=== PATIENT | female | born 1975 | race Two or more races ===

== ENCOUNTER 2020-07-26 15:52 | Outpatient (REF) | payer OTHER, SELFPAY | END 2020-07-26 15:53 | disposition home or self-care (01) | LOC: HO.LAB 15:52 | PROVIDERS: PCP Internal Medicine; Visit Provider Internal Medicine | DX: Z20.828 Contact with and (suspected) exposure to other viral communicable diseases (principal) | CPT/HCPCS: 87635 ==

== ENCOUNTER 2021-01-31 12:26 | Outpatient (REF) | payer OTHER, SELFPAY | END 2021-01-31 12:27 | disposition home or self-care (01) | LOC: HO.LAB 12:26 | PROVIDERS: Visit Provider Internal Medicine | DX: Z20.822 Contact with and (suspected) exposure to COVID-19 (principal) | CPT/HCPCS: C9803; U0003; U0005 ==

== ENCOUNTER 2021-06-05 16:06 | Outpatient (REF) | payer OTHER, SELFPAY ==
[2021-06-05 17:11] LABS: MANUAL DIFF FLAG NO
[2021-06-05 17:18] LABS: Appearance Urine CLEAR; Color Urine YELLOW; Glucose Urine UA NEG (NEG); Leukocyte Esterase Urine NEG (NEG); Nitrite Urine NEG (NEG); Urine Blood NEG (NEG); Urine Ketones NEG (NEG); Urine Protein NEG (NEG-TRACE)
[2021-06-05 17:20] LABS: Basophils Percent Auto 0.3 % (0-2); Eosinophils Absolute Auto 0.1 X10*3/uL (0.0-0.4); Eosinophils Percent Auto 2.2 % (0-4); Hematocrit 37.6 % (37-47); Hemoglobin 11.9 g/dl (12.0-16.0); Imm Gran Abs Auto 0.03 X10*3/uL (0.00-0.03); Imm Gran Pct Auto 0.5 % (0.0-0.4); Lymphocytes Absolute Auto 2.3 X10*3/uL (1.2-4.9); Lymphocytes Percent Auto 38.1 % (20-40); Mean Corpuscular HGB Conc 31.6 g/dl (31.0-35.0); Mean Corpuscular Hemoglobin 26.7 pg (27.0-33.0); Mean Corpuscular Volume 84.5 fL (80-98); Mean Platelet Volume 9.4 fL (9.4-12.3); Monocytes Absolute Auto 0.5 X10*3/uL (0.1-1.2); Monocytes Percent Auto 7.8 % (2-11); Neutrophils Absolute Auto 3.1 X10*3/uL (2.0-8.3); Neutrophils Percent Auto 51.1 % (45-73); Platelet Count 313 X10*3/uL (160-400); Red Blood Count 4.45 X10*6/uL (4.20-5.50); Red Cell Distribution Width 14.3 % (11.0-16.0)
[2021-06-05 17:48] LABS: Alanine Aminotransferase 19 U/L (0-31); Albumin Level 4.2 g/dL (3.5-5.0); Alkaline Phosphatase 36 U/L (39-117); Anion Gap 9 (12-20); Aspartate Amino Transferase 18 U/L (5-31); Bilirubin Total 0.4 mg/dL (0.0-1.0); Blood Urea Nitrogen 10 mg/dL (9-16); Calcium 9.4 mg/dL (8.4-10.2); Carbon Dioxide 29 mmol/L (22-29); Chloride 106 mmol/L (96-108); Cholesterol 197 mg/dL; Estimated Glomerular Filt Rate > 60; Glucose Fasting 83 mg/dL (60-99); HDL Cholesterol 55 mg/dL; LDL Cholesterol Calculated 120 mg/dl; Sodium 139 mmol/L (135-145); Total Protein 6.8 g/dL (6.5-8.0); Triglycerides 110 mg/dL
[2021-06-05 18:06] LABS: TSH reflex Free T4 0.66 uIU/mL (0.32-4.0)
== END 2021-06-05 16:07 | disposition home or self-care (01) ==
LOC: HO.LAB 16:06
PROVIDERS: PCP Internal Medicine; Visit Provider Internal Medicine
DX: I10 Essential (primary) hypertension (principal); E78.00 Pure hypercholesterolemia, unspecified; E55.9 Vitamin D deficiency, unspecified
CPT/HCPCS: 36415; 80053; 80061; 81003; 82306; 84443; 85025

== ENCOUNTER 2021-12-30 11:58 | Inpatient (IN) | payer OTHER, SELFPAY ==
[2021-12-30] VITALS (17 sets, daily range): BP systolic 114–204; BP diastolic 71–118; PULSE 58–106; RESP 16–42; TEMP 36.4–37.1; O2SAT 95–100; BMI 30.2
--- NOTE | ~2021-12-30 | XR_ITS ---
EXAMINATION: XR CHEST CLINICAL INFORMATION: Chest pain with chest tube COMPARISON: 12/30/2021 TECHNIQUE: Frontal view of the chest was obtained. FINDINGS: Redemonstrated chest tube catheter overlying the mid right hemithorax. Lung volumes are symmetric. Streaky bibasilar opacities favor atelectasis. Mid to upper lungs are well-aerated. No appreciable pneumothorax or significant pleural effusion. The cardiomediastinal silhouette is stable. No acute osseous findings are seen. XR/XR chest 1V IMPRESSION: No appreciable residual pneumothorax. Mild bibasilar atelectasis.
--- NOTE | ~2021-12-30 | XR_ITS ---
EXAMINATION: XR CHEST CLINICAL INFORMATION: Right pneumothorax with pigtail catheter. COMPARISON: Portable chest radiographs dated 12/31/2021. TECHNIQUE: Frontal view of the chest was obtained. FINDINGS: Support devices: Right-sided pigtail chest tube in place without interval change. The lungs are clear. The heart and mediastinal structures are unremarkable. XR/XR chest 1V IMPRESSION: No residual/recurrent pneumothorax with right chest tube in place.
--- NOTE | ~2021-12-30 | XR_ITS ---
EXAMINATION: XR CHEST CLINICAL INFORMATION: Chest tube placement COMPARISON: Radiograph from earlier today. TECHNIQUE: Frontal view of the chest was obtained. FINDINGS: Right-sided chest tube now in place overlies the base. There is a small residual pneumothorax, decreased in prominence from prior. The left lung is expanded and clear. The cardiomediastinal silhouette is within normal limits. XR/XR chest 1V IMPRESSION: Right-sided chest tube now in place with decreasing size of a now small right-sided pneumothorax.
--- NOTE | ~2021-12-30 | XR_ITS ---
EXAMINATION: XR CHEST CLINICAL INFORMATION: Follow-up pneumothorax COMPARISON: Previous chest x-ray from yesterday TECHNIQUE: Frontal view of the chest was obtained. FINDINGS: The cardiac and mediastinal contours are stable. There is a right chest tube that appears unchanged in position. There is a tiny right apical pneumothorax that measures 5 mm. There is subsegmental atelectasis at the left lung base. The lungs are otherwise clear.. There is no pleural effusion. There is a small amount of air in the right lateral chest. Bony structures are unremarkable. XR/XR chest 1V IMPRESSION: Stable position of right chest tube. Tiny right apical pneumothorax.
--- NOTE | ~2021-12-30 | XR_ITS ---
EXAMINATION: XR CHEST CLINICAL INFORMATION: Chest pain. Cough. COMPARISON: None TECHNIQUE: Frontal view of the chest was obtained. FINDINGS: There is a large right-sided pneumothorax. The left lung is well-expanded. No mediastinal shift seen. No pleural effusion. No consolidation. Normal size of the cardiomediastinal silhouette. No acute osseous abnormality. XR/XR chest 1V IMPRESSION: Large right-sided pneumothorax. This critical result was discussed with Linda Ba MD by telephone at 12/30/2021 2:15 PM and it was ascertained that the content and urgency of the report was understood at the time of direct communication.
--- NOTE | ~2021-12-30 | XR_ITS ---
EXAMINATION: XR CHEST CLINICAL INFORMATION: Right-sided pneumothorax treated with chest tube. COMPARISON: Chest x-ray 12/31/2021, 8:34 AM TECHNIQUE: Frontal portable view of the chest was obtained. 5:05 PM FINDINGS: Right-sided chest tube remains in place. Right lung is reexpanded. There is no residual pneumothorax. Decreasing volume of subcutaneous emphysema in the right axilla. No acute airspace disease. No pleural effusion. Heart size normal. Cardiac mediastinal contours are normal. XR/XR chest 1V IMPRESSION: Right-sided chest remains in place. No residual pneumothorax.
--- NOTE | 2021-12-30 12:03 | ECG_ITS ---
Test Reason : cp Blood Pressure : / mmHG Vent. Rate : 084 BPM Atrial Rate : 084 BPM P-R Int : 126 ms QRS Dur : 078 ms QT Int : 378 ms P-R-T Axes : 073 041 008 degrees QTc Int : 446 ms Normal sinus rhythm Normal ECG No previous ECGs available Referred By: Generic ED Physician Electronically Signed By:YURI AYALA MD
[2021-12-30 13:19] LABS: MANUAL DIFF FLAG NO
[2021-12-30 13:29] LABS: Basophils Percent Auto 0.5 % (0-2); Eosinophils Absolute Auto 0.1 X10*3/uL (0.0-0.4); Eosinophils Percent Auto 2.2 % (0-4); Hematocrit 42.1 % (37.0-47.0); Hemoglobin 13.7 g/dl (12.0-16.0); Imm Gran Abs Auto 0.01 X10*3/uL (0.00-0.03); Imm Gran Pct Auto 0.2 % (0.0-0.4); Lymphocytes Absolute Auto 1.8 X10*3/uL (1.2-4.9); Lymphocytes Percent Auto 31.2 % (20-40); Mean Corpuscular HGB Conc 32.5 g/dl (31.0-35.0); Mean Corpuscular Hemoglobin 27.6 pg (27.0-33.0); Mean Corpuscular Volume 84.9 fL (80.0-98.0); Mean Platelet Volume 9.4 fL (9.4-12.3); Monocytes Absolute Auto 0.6 X10*3/uL (0.1-1.2); Monocytes Percent Auto 9.9 % (2-11); Neutrophils Absolute Auto 3.3 x10*3/uL (2.0-8.3); Platelet Count 297 X10*3/uL (160-400); Red Blood Count 4.96 X10*6/uL (4.20-5.50); Red Cell Distribution Width 14.6 % (11.0-16.0); White Blood Count 5.9 X10*3/uL (4.8-10.8)
--- NOTE | 2021-12-30 13:42 | ED_ITS ---
HPI - Chest Pain General Chief Complaint: Chest Pain Stated Complaint: SOB/Chest pain Time Seen by Provider: 12/30/21 13:36 Source: patient Mode of arrival: ambulatory Limitations: no limitations History of Present Illness HPI narrative: Patient comes to the emergency room complaining of right-sided chest pain, aye rtness of breath, coughing. Patient denies fever chills. Patient states she has history of asthma but has not used her inhaler for 2 months. Patient denies abdominal pain, no other symptoms. Patient admits that she has been using cocaine lately. Around this time of year, it is the 3rd year anniversary of her son's . Related Data Home Medications Medication Instructions Recorded Confirmed clonazepam 1 mg tablet 1 mg PO BID PRN 07/23/20 12/30/21 quetiapine 50 mg tablet 50 mg PO BEDTIME 07/23/20 12/30/21 sertraline 50 mg tablet 50 mg PO BEDTIME 09/04/21 12/30/21 Previous Rx's Medication Instructions Recorded albuterol sulfate 90 mcg/actuation 2 puff INHALATION Q6H PRN 30 Days 09/04/21 aerosol inhaler #8.5 g cholecalciferol (vitamin D3) 50 50 mcg PO DAILY 90 Days #90 cap 09/04/21 mcg (2,000 unit) capsule propranolol 160 mg capsule,24 160 mg PO DAILY 90 Days #90 cap 09/04/21 hr,extended release Allergies Allergy/AdvReac Type Severity Reaction Status Date / Time No Known Allergies Allergy Verified 12/30/21 13:07 Review of Systems Review of Systems: Constitutional : No Weight loss, No Fever, No Chills, No Night Sweats, No Fatigue, No Malaise ENT/Mouth : No Hearing loss, No Ear Pain, No Nasal Congestion, No Sinus Pain, No Hoarseness, No sore throat, No Rhinorrhea, No Swallowing Difficulty Eyes: No Eye Pain, No Swelling, No Redness, No Foreign Body, No Discharge, No Vision Changes Cardiovascular : Complaining of right-sided Chest Pain with deep inspiration, intermittent SOB, No Dyspnea on Exertion, No Orthopnea, No Edema, No Palpitations Respiratory : Mild dry Cough, No Sputum, No Wheezing, No Smoke Exposure, intermittent Dyspnea Gastrointestinal : No Nausea, No Vomiting, No Diarrhea, No Constipation, No abdominal Pain, No Hematochezia, No Melena Genitourinary : no irregular bleeding, No Dysuria, No Urinary Frequency, No H ematuria, No Urinary Incontinence, No Urgency, No Flank Pain, No Urinary Flow Changes, No Hesitancy Musculoskeletal : No joint pain, No Myalgias, No Joint Swelling Skin : No Skin Lesions, No rash Neuro : No Weakness, No Numbness, No Paresthesias, No Loss of Consciousness, No Dizziness, No Headache Psych : No Anxiety/Panic, No Depression, No SI/HI/AH/VH, No Social Issues, Heme/Lymph: No Bruising, No Bleeding,No Lymphadenopathy Endocrine : No Polyuria, No Polydipsia, No Temperature Intolerance FOR[facility]LY [facility] Past Medical History Medical History Anxiety Asthma Bipolar depression Obesity (BMI 30-39.9) Persistent headaches Primary insomnia Vitamin D deficiency Surgical History History of tubal ligation Family History Family History Father No problems noted. Mother No problems noted. Maternal Grandmother Breast cancer Paternal Aunt Breast cancer Family/Other FH: mental illness Other Mental health problem Social History Social History Housing: Apartment Alcohol intake: never Patient Tobacco Use Status: Current everyday Tobacco user Cigarette Packs Per Day: 2 Second Hand Smoke Exposure: Yes Use of substances other than those prescribed or required for medical reasons: Yes Substance Use Type: Marijuana Substance Use Frequency: Occasionally Advance Directives: No Advance Directives Information Provided: No service: No Current occupational status: disabled Physical Exam Vital Signs: Vital Signs: Last Vital Signs Temp 97.5 F 12/30/21 13:05 Pulse 81 12/30/21 17:12 Resp 18 12/30/21 17:12 BP 124/71 12/30/21 17:12 Pulse Ox 98 12/30/21 17:12 Oxygen Flow Rate 2 12/30/21 16:27 BMI result Body Mass Index 30.2 Const: Other: Appearance: Alert. Oriented X3. No acute distress. Well-appearing Eyes: Pupils equal, round and reactive to light. ENT: Pharynx normal. Neck: Normal inspection. Neck supple. No lymph nodes noted. No crepitus CVS: Normal heart rate and rhythm. Pulses normal. Normal S1 and S2 Respiratory: No respiratory distress. Decreased breath sounds right lung, Wheezing. No rales Abdomen: Soft and nontender. No rigidity. No distention. Skin: Skin warm and dry. Normal skin color. Normal skin turgor. Extremities: No lower extremity edema. No Lacerations. No Rash Neuro: Oriented X 3. No motor deficit. No sensory deficit. Moving all extremities. No slurred speech. CN 2 through 12 grossly intact Psych: calm, cooperative, normal affect Course Course Course Narrative: Left spending and imaging. X-ray shows a large right-sided pneumothorax. I discussed with the patient that she will need a chest tube. I discussed with the patient the option of being awake versus conscious sedation. Patient opted for conscious sedation. Patient signed the consent, now in patient's chart. Patient admits to use cocaine, which may have contributed to the pneumothorax Patient needed 2 milligrams/kilogram of ketamine, 2 mg of Ativan, and 2 mg of Dilaudid. Patient tolerated well the procedure I discussed the patient with Dr. Gonzalez, thoracic will help manage the chest tube I discussed the patient with Dr. Daily, pt being admitted Procedures Chest Tube Chest Tube 1: Chest Tube Location: right and anterior axillary line Size of Tube (cm): 14 Chest Tube Prep: Yes betadine prep and sterile drapes applied Local Anesthetic: lidocaine 1% Amount of anesthesia used (mL): 10 Incision Made With: other Post Procedure: sutured to skin and sterile dressing applied Tube Drainage: blood Amount of initial drainage (mL): 0 Post Procedure CXR?: Yes Patient Tolerated Procedure: Yes MDM - Chest Pain Lab Data Result diagrams: 12/30/21 14:57 12/30/21 14:57 Labs: Lab Results 12/30/21 12/30/21 12/30/21 Range/Units 13:15 13:15 13:15 WBC 5.9 (4.8-10.8) X10*3/uL RBC 4.96 (4.20-5.50) X10*6/uL Hgb 13.7 (12.0-16.0) g/dl Hct 42.1 (37.0-47.0) % MCV 84.9 (80.0-98.0) fL MCH 27.6 (27.0-33.0) pg MCHC 32.5 (31.0-35.0) g/dl RDW 14.6 (11.0-16.0) % Plt Count 297 (160-400) X10*3/uL MPV 9.4 (9.4-12.3) fL Immature Gran % (Auto) 0.2 (0.0-0.4) % Neut % (Auto) 56.0 (45-73) % Lymph % (Auto) 31.2 (20-40) % [place] % (Auto) 9.9 (2-11) % Eos % (Auto) 2.2 (0-4) % Baso % (Auto) 0.5 (0-2) % Lymph # (Auto) 1.8 (1.2-4.9) X10*3/uL [place] # (Auto) 0.6 (0.1-1.2) X10*3/uL Eos # (Auto) 0.1 (0.0-0.4) X10*3/uL Baso # (Auto) 0.0 (0.0-0.2) X10*3/uL Abs Immat Gran (auto) 0.01 (0.00-0.03) X10*3/uL Absolute Neuts (auto) 3.3 (2.0-8.3) x10*3/uL Absolute Nucleated RBC 0.000 (0.0-0.012) X10*3/uL Nucleated RBC % (auto) 0.0 (0.0-0.2) /100WBC PT (9.9-13.0) SEC INR (0.9-1.1) D-Dimer High Sensitivty NG/ML Sodium 139 (135-145) mmol/L Potassium 4.8 (3.3-5.1) mmol/L Chloride 106 (96-108) mmol/L Carbon Dioxide 27 (22-29) mmol/L Anion Gap 11 L (12-20) BUN 9 (9-16) mg/dL Creatinine 0.81 (0.5-1.4) mg/dL Estim Creat Clear Calc 79.9 Estimated GFR > 60 Random Glucose 77 (60-115) mg/dL Calcium 9.9 (8.4-10.2) mg/dL Troponin I High Sens < 3.5 (<3.5-17.0) ng/L 12/30/21 12/30/21 12/30/21 Range/Units 14:11 14:57 14:57 WBC 6.0 (4.8-10.8) X10*3/uL RBC 4.94 (4.20-5.50) X10*6/uL Hgb 13.5 (12.0-16.0) g/dl Hct 41.6 (37.0-47.0) % MCV 84.2 (80.0-98.0) fL MCH 27.3 (27.0-33.0) pg MCHC 32.5 (31.0-35.0) g/dl RDW 14.6 (11.0-16.0) % Plt Count 285 (160-400) X10*3/uL MPV 9.6 (9.4-12.3) fL Immature Gran % (Auto) 0.2 (0.0-0.4) % Neut % (Auto) 55.3 (45-73) % Lymph % (Auto) 32.9 (20-40) % [place] % (Auto) 9.0 (2-11) % Eos % (Auto) 2.3 (0-4) % Baso % (Auto) 0.3 (0-2) % Lymph # (Auto) 2.0 (1.2-4.9) X10*3/uL [place] # (Auto) 0.5 (0.1-1.2) X10*3/uL Eos # (Auto) 0.1 (0.0-0.4) X10*3/uL Baso # (Auto) 0.0 (0.0-0.2) X10*3/uL Abs Immat Gran (auto) 0.01 (0.00-0.03) X10*3/uL Absolute Neuts (auto) 3.3 (2.0-8.3) x10*3/uL Absolute Nucleated RBC 0.000 (0.0-0.012) X10*3/uL Nucleated RBC % (auto) 0.0 (0.0-0.2) /100WBC PT 12.0 (9.9-13.0) SEC INR 1.1 (0.9-1.1) D-Dimer High Sensitivty < 150 NG/ML Sodium 137 (135-145) mmol/L Potassium 5.0 (3.3-5.1) mmol/L Chloride 106 (96-108) mmol/L Carbon Dioxide 23 (22-29) mmol/L Anion Gap 13 (12-20) BUN 8 L (9-16) mg/dL Creatinine 0.76 (0.5-1.4) mg/dL Estim Creat Clear Calc 85.1 Estimated GFR > 60 Random Glucose 83 (60-115) mg/dL Calcium 9.7 (8.4-10.2) mg/dL Troponin I High Sens (<3.5-17.0) ng/L Imaging Data Chest x-ray: Radiologist's impression: FINDINGS: There is a large right-sided pneumothorax. The left lung is well-expanded. No mediastinal shift seen. No pleural effusion. No consolidation. Normal size of the cardiomediastinal silhouette. No acute osseous abnormality. XR/XR chest 1V IMPRESSION: Large right-sided pneumothorax. Chest ray after chest tube: Radiologist's impression: FINDINGS: Right-sided chest tube now in place overlies the base. There is a small residual pneumothorax, decreased in prominence from prior. The left lung is expanded and clear. The cardiomediastinal silhouette is within normal limits. XR/XR chest 1V IMPRESSION: Right-sided chest tube now in place with decreasing size of a now small right-sided pneumothorax. Critical Care Time Critical Care Time Critical Care Time: Yes Total Critical Care Time: 60 Attestation: I have personally provided critical care time. Time includes review of lab data, radiology results, discussion with consultants, and monitoring for potential decompensation. Intervention performed as documented. Discharge Plan Discharge Clinical Impression: Spontaneous pneumothorax Patient Disposition: Admitted As Inpatient
[2021-12-30 13:44] LABS: Anion Gap 11 (12-20); Blood Urea Nitrogen 9 mg/dL (9-16); Calcium 9.9 mg/dL (8.4-10.2); Carbon Dioxide 27 mmol/L (22-29); Chloride 106 mmol/L (96-108); Creatinine Clr Calc Pharmacy 79.9; Estimated Glomerular Filt Rate > 60; Glucose Random 77 mg/dL (60-115); Potassium 4.8 mmol/L (3.3-5.1); Sodium 139 mmol/L (135-145)
[2021-12-30 13:48] LABS: Troponin-I High Sensitivity < 3.5 ng/L (<3.5-17.0)
[2021-12-30 14:23] LABS: D Dimer High Sensitivity < 150 NG/ML
--- NOTE | 2021-12-30 14:42 | PC.NURSE ---
pt alert and oriented, skin appropriate for ethnicity, respirations even and unlabored, pt reports right chest/shoulder/upper/mid back pain, reports feeling slightly sob as well, ls on the left no ls on the entire right side, sating well 96% on room air speaking in full sentences and intermittent dry cough noticed
[2021-12-30 15:02] LABS: MANUAL DIFF FLAG NO
[2021-12-30 15:04] LABS: INTERNATIONAL NORM RATIO 1.1 (0.9-1.1)
[2021-12-30 15:05] LABS: Basophils Percent Auto 0.3 % (0-2); Eosinophils Absolute Auto 0.1 X10*3/uL (0.0-0.4); Eosinophils Percent Auto 2.3 % (0-4); Hematocrit 41.6 % (37.0-47.0); Hemoglobin 13.5 g/dl (12.0-16.0); Imm Gran Abs Auto 0.01 X10*3/uL (0.00-0.03); Imm Gran Pct Auto 0.2 % (0.0-0.4); Lymphocytes Percent Auto 32.9 % (20-40); Mean Corpuscular HGB Conc 32.5 g/dl (31.0-35.0); Mean Corpuscular Hemoglobin 27.3 pg (27.0-33.0); Mean Corpuscular Volume 84.2 fL (80.0-98.0); Mean Platelet Volume 9.6 fL (9.4-12.3); Monocytes Absolute Auto 0.5 X10*3/uL (0.1-1.2); Neutrophils Absolute Auto 3.3 x10*3/uL (2.0-8.3); Neutrophils Percent Auto 55.3 % (45-73); Platelet Count 285 X10*3/uL (160-400); Red Blood Count 4.94 X10*6/uL (4.20-5.50); Red Cell Distribution Width 14.6 % (11.0-16.0)
[2021-12-30 15:20] LABS: Anion Gap 13 (12-20); Blood Urea Nitrogen 8 mg/dL (9-16); Calcium 9.7 mg/dL (8.4-10.2); Carbon Dioxide 23 mmol/L (22-29); Chloride 106 mmol/L (96-108); Creatinine Clr Calc Pharmacy 85.1; Estimated Glomerular Filt Rate > 60; Glucose Random 83 mg/dL (60-115); Sodium 137 mmol/L (135-145)
[2021-12-30] MEDS: ondansetron HCL 4 MG/2 ML VIAL IVPUSH (15:24)
[2021-12-30] MEDS: Ketamine HCl/NS 50 MG/5 ML SYRINGE 72.575 MG IVPUSH ×2 (15:28→15:38)
[2021-12-30] MEDS: LORazepam 2 MG/ML VIAL IVPUSH (15:40)
[2021-12-30] MEDS: HYDROmorphone HCl 1 MG/ML SYRINGE IVPUSH ×2 (15:49→15:57)
[2021-12-30] MEDS: Lidocaine HCl 1 % 20 ML VIAL 10 ML INFILTRATI (16:00)
--- NOTE | 2021-12-30 16:10 | PC.NURSE ---
pt got a pig tail inserted in her right chest, pt tolerated the procedure well, vs stable, pt is currently very sleepy do to all the medications, ns on the monitor
--- NOTE | 2021-12-30 17:13 | PC.NURSE ---
pt sleepy/diaphoretic reports feeling hot, and dizzy dr pino at bedside, vs stable, ns on the monitor
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
--- NOTE | 2021-12-30 18:15 | PHA.MEDREC ---
Pharmacy Consult ? Medication Reconciliation Pharmacy has completed the medication reconciliation. Patient has not taken meds for roughly 30 days, and states when she did take them..she took them all as needed. Frantz Salamanca
[2021-12-31] MEDS: clonazePAM 1 MG TABLET PO (00:01)
[2021-12-31] MEDS: Melatonin 3 MG TABLET 6 MG PO (00:01)
[2021-12-31] MEDS: Morphine Sulfate 4 MG/ML CARTRIDGE IVPUSH ×4 (00:02→15:43)
[2021-12-31] MEDS: 0.9 % Sodium Chloride Flush 3 ML SYRINGE IVFLUSH ×3 (00:06→11:32)
[2021-12-31 02:20] LABS: COVID-19 Test Negative (Negative)
--- NOTE | 2021-12-31 05:19 | PC.NURSE ---
Patient had a chest tube attached to [address] way valve air flow. Md was asked about an immediate care orders. MD stated pt was stable for the night and thoracic will evaluate her in the am. Dressing site is CDI No kink or blockage observe in valve.
[2021-12-31 06:00] VITALS: BP 140/89; PULSE 57; RESP 18; TEMP 37.1; O2SAT 99
--- NOTE | 2021-12-31 06:34 | PC.NURSE ---
Patient was complaining of pain after being medicated 1 hr ago with pain medication. Patient stated the patient is more severe than usual. Md was notified. STAT Xray was ordered and Dilaudid as well.
[2021-12-31] MEDS: HYDROmorphone HCl 1 MG/ML SYRINGE IVPUSH (06:42)
[2021-12-31 07:09] VITALS: BP 106/62; PULSE 62; RESP 14; TEMP 36.6; O2SAT 100
[2021-12-31] MEDS: Benzonatate 100 MG CAPSULE PO (07:21)
[2021-12-31] MEDS: Cholecalciferol (Vitamin D3) 25 MCG TABLET 50 MCG PO (08:27)
[2021-12-31] MEDS: Nicotine 21 MG PATCH.TD24 TRANSDERMA (08:27)
[2021-12-31 11:30] VITALS: RESP 20
--- NOTE | 2021-12-31 11:40 | PC.NURSE ---
ARRIVED IN ED OVERFLOW C/O 07/07. MEDICATED DIRECTED BY EMR. VOIDED AND SAMPLE COLLECTED AND SENT TO LAB. REPORT TO IMC GIVEN. AWAITING TRANSFER TO FLOOR.
[2021-12-31 12:00] VITALS: BP 116/77; PULSE 75; RESP 20; TEMP 36.9; O2SAT 98
[2021-12-31 12:07] LABS: Amphetamine Screen Urine Not Detected (Not Detect); Barbiturates, Urine Not Detected (Not Detect); Benzodiazepines Screen Urine Not Detected (Not Detect); Cannabinoid Screen Urine POSITIVE (Not Detect); Cocaine Screen Urine POSITIVE (Not Detect); Fentanyl, urine Not Detected (Not Detect); Opiate Screen Urine POSITIVE (Not Detect); Phencyclidine Screen Urine Not Detected (Not Detect)
--- NOTE | 2021-12-31 14:27 | HO.PM.IMPN ---
Subjective Subjective Date of Service: 01/01/22 Interval History: complaining of right-sided back pain, also complaining of chest pain with deep breathing localize at site of chest tube, complaining of headache denies fever chills no other acute issues overnight, admits of smoking marijuana few times a day to help with sleep and appetite, smokes 1 pack per day. Review of Systems Review of Systems: Yes all other systems are reviewed and are negative Physical Exam Vital Signs: Vital Signs: Last Vital Signs Temp 98.4 F 12/31/21 12:00 Pulse 75 12/31/21 12:00 Resp 20 12/31/21 12:00 BP 116/77 12/31/21 12:00 Pulse Ox 98 12/31/21 12:00 Oxygen Flow Rate 2 12/30/21 16:27 BMI result Body Mass Index 30.2 Const: Other: General? Awake alert x3 no acute distress.? HEENT PERRLA, anicteric sclera Neck no JVD. CVS? regular rate rhythm, Respiratory lungs clear to auscultation, no respiratory distress, no wheeze, no rhonchi, diminished at bases/ chest tube to right chest . Gastrointestinal abdomen soft, nontender, bowel sounds audible, no guarding , no rigidity. Extremities no edema. Neuro nonfocal Skin no rash ? Objective Data Active Medications Acetaminophen (Acetaminophen 325 Mg Tablet) 650 mg PO Q6H PRN PRN Reason: Pain, Mild (Pain Scale 1-3) Acetaminophen/Butalbital/Caffeine (Butalb/Acetamin/Caff 50/325/40 Tablet) 1 tab PO Q4H PRN PRN Reason: Headache Albuterol Sulfate (Albuterol Sulfate 90 Mcg 8 Gm Inhaler) 2 puff INHALE Q6H PRN PRN Reason: shortness of breath or wheezing Benzonatate (Benzonatate 100 Mg Capsule) 100 mg PO TID PRN PRN Reason: Cough Last Admin: 12/31/21 07:21 Dose: 100 mg Documented by: GONZÁLEZ Clonazepam (Clonazepam 1 Mg Tablet) 1 mg PO BID PRN PRN Reason: Anxiety Last Admin: 12/31/21 00:01 Dose: 1 mg Documented by: ALBA Melatonin (Melatonin 3 Mg Tablet) 6 mg PO BEDTIME PRN PRN Reason: Insomnia Last Admin: 12/31/21 00:01 Dose: 6 mg Documented by: ALBA Morphine Sulfate (Morphine Sulfate 4 Mg/Ml Cartridge) 4 mg IVPUSH Q4H PRN; Protocol PRN Reason: Pain, Severe (Pain Scale 7-10) Last Admin: 12/31/21 11:30 Dose: 4 mg Documented by: BYRON Nicotine (Nicotine 21 Mg Patch.Td24) 21 mg TRANSDERMA DAILY [facility] Last Admin: 12/31/21 08:27 Dose: 21 mg Documented by: GONZÁLEZ Ondansetron HCl (Ondansetron Hcl 4 Mg/2 Ml Vial) 4 mg IVPUSH Q8H PRN PRN Reason: Nausea and Vomiting Sodium Chloride (0.9 % Sodium Chloride Flush 3 Ml Syringe) 3 ml IVFLUSH QSHIFT [facility] Last Admin: 12/31/21 11:32 Dose: 3 ml Documented by: BYRON Vitamin D (Cholecalciferol (Vitamin D3) 25 Mcg Tablet) 50 mcg PO DAILY [facility] Last Admin: 12/31/21 09:02 Dose: Not Given Documented by: HENRY Non-Admin Reason: Previously Administered Labs CBC & Chem 7: 12/30/21 14:57 12/30/21 14:57 Labs: Laboratory Results - last 24 hr 12/30/21 12/30/21 12/30/21 14:11 14:57 14:57 MCV 84.2 MCH 27.3 MCHC 32.5 RDW 14.6 Plt Count 285 MPV 9.6 Immature Gran % (Auto) 0.2 Neut % (Auto) 55.3 Lymph % (Auto) 32.9 [place] % (Auto) 9.0 Eos % (Auto) 2.3 Baso % (Auto) 0.3 Lymph # (Auto) 2.0 [place] # (Auto) 0.5 Eos # (Auto) 0.1 Baso # (Auto) 0.0 Abs Immat Gran (auto) 0.01 Absolute Neuts (auto) 3.3 Absolute Nucleated RBC 0.000 Nucleated RBC % (auto) 0.0 PT 12.0 INR 1.1 Anion Gap 13 Estim Creat Clear Calc 85.1 Estimated GFR > 60 Random Glucose 83 Calcium 9.7 Urine Opiates Screen Urine Fentanyl Screen Ur Barbiturates Screen Ur Phencyclidine Scrn Ur Amphetamines Screen U Benzodiazepines Scrn Urine Cocaine Screen U Marijuana (THC) Screen COVID-19 (ANGIE) COVID-19 Clin Com 12/31/21 12/31/21 02:00 11:38 MCV MCH MCHC RDW Plt Count MPV Immature Gran % (Auto) Neut % (Auto) Lymph % (Auto) [place] % (Auto) Eos % (Auto) Baso % (Auto) Lymph # (Auto) [place] # (Auto) Eos # (Auto) Baso # (Auto) Abs Immat Gran (auto) Absolute Neuts (auto) Absolute Nucleated RBC Nucleated RBC % (auto) PT INR Anion Gap Estim Creat Clear Calc Estimated GFR Random Glucose Calcium Urine Opiates Screen POSITIVE H Urine Fentanyl Screen Not Detected Ur Barbiturates Screen Not Detected Ur Phencyclidine Scrn Not Detected Ur Amphetamines Screen Not Detected U Benzodiazepines Scrn Not Detected Urine Cocaine Screen POSITIVE H U Marijuana (THC) Screen POSITIVE H COVID-19 (ANGIE) Negative COVID-19 Clin Com See Note Assessment and Plan (1) Spontaneous pneumothorax: Status: Acute (2) Vitamin D deficiency: Status: Acute (3) Current smoker: Status: Acute Plan 46-year-old female patient presented with acute onset of sudden right-sided chest pain and shortness of breath chest x-ray showed large right-sided pneumothorax patient is status post chest tube placement now being admitted for continued monitoring and treatment ?Spontaneous pneumothorax? no acute trauma, history of cocaine inhalation likely cause ?status post chest tube placement repeat chest x-ray showed significant improvement, continue chest tube attached to heimlich valve with 1 way air flow, repeat chest x-ray at a.m. ?thoracic surgery eval for removal of chest tube continue pain management/ cough medication as needed, minimize narcotics. ?tobacco use disorder? smokes 1 pack per day counseling done,on nicotine patch ?[place]ari[place] use disorder has been smoking marijuana since young age, met with addiction team patient has outpatient support including Psychiatry /reheater helper / VNA ?cocaine use disorder urine toxicology positive for opiates, cocaine, marijuana med with Addiction Team as above. ?chronic headaches stable at present ?history of mild persistent asthma no acute exacerbation continue home inhalers ?chronic unspecified headache, prior MRI brain in August 2019 showed no acute abnormality? was on tramadol 50 mg t.i.d. as needed and propranolol ER 160 mg by mouth q.d. for headache prophylaxis, ?and Fioricet as needed but patient not compliant with home medication ?vitamin-D deficiency continue with 20 supplement ?history of anxiety / insomnia? patient on Ambien, Seroquel, and Klonopin ?alcohol use disorder no symptoms of withdrawal noted. ?DVT prophylaxis compression boots ?patient will need inpatient hospitalization due to right-sided pneumothorax with chest tube, likely related to cocaine ,persistent rt. sided chest pain requiring iv pain meds. Quality Stroke Does the patient have a stroke diagnosis?: No VTE Prior VTE?: No VTE Risk Level:: Medical - moderate - high VTE Device Contraindication: N/A - Device Ordered VTE Drug Contraindication: Treatment Not Indicated
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
[2021-12-31 15:38] VITALS: BP 124/71; PULSE 77; RESP 18; TEMP 37; O2SAT 97
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
[2021-12-31 19:22] VITALS: BP 121/64; PULSE 78; RESP 18; TEMP 37.2; O2SAT 99
[2022-01-01] VITALS: BP 123/75; PULSE 82; RESP 19; TEMP 37.1; O2SAT 94
[2022-01-01 02:59] VITALS: RESP 18
[2022-01-01] MEDS: Morphine Sulfate 4 MG/ML CARTRIDGE 3 MG IVPUSH (02:59)
[2022-01-01 03:29] VITALS: BP 126/73; PULSE 75; RESP 19; TEMP 36.9; O2SAT 95
[2022-01-01 07:32] VITALS: BP 121/85; PULSE 70; RESP 17; TEMP 36.4; O2SAT 96
[2022-01-01] MEDS: Acetaminophen 325 MG TABLET 650 MG PO (08:59)
[2022-01-01] MEDS: Cholecalciferol (Vitamin D3) 25 MCG TABLET 50 MCG PO (09:00)
[2022-01-01] MEDS: Nicotine 21 MG PATCH.TD24 TRANSDERMA (09:02)
[2022-01-01] MEDS: 0.9 % Sodium Chloride Flush 3 ML SYRINGE IVFLUSH (09:03)
--- NOTE | 2022-01-01 09:37 | P.PNTS_ITS ---
Subjective Subjective Date of Service: 01/01/22 Interval history: Patient was seen examined this morning. Patient denies any shortness of breath at rest or with exertion. Denies any cough or hemoptysis. States that the pain surrounding her right-sided chest tube is well controlled on current analgesics. This morning her right-sided pigtail catheter was attached to an Atrium device which displayed no air leak. A chest x-ray was obtained which showed no residual pneumothorax. Physical Exam Vital Signs: Vital Signs: Last Vital Signs Temp 97.6 F 01/01/22 07:32 Pulse 70 01/01/22 07:32 Resp 17 01/01/22 07:32 BP 121/85 01/01/22 07:32 Pulse Ox 96 01/01/22 07:32 Oxygen Flow Rate 2 12/30/21 16:27 BMI result Body Mass Index 30.2 Const: General: no acute distress Orientation/consciousness: patient oriented x3 Chest: Other: Right-sided pigtail catheter remained in place overnight attached to a Heimlich valve. This morning chest tube was attached to an Atrium pleural vac which showed no detectable air leak. No crepitus or subcutaneous emphysema appreciated. Cardio: Jugular venous distension: no JVD Rate: regular rate Rhythm: regular rhythm Heart sounds: S1 normal heart sound present, S2 normal heart sound present, no murmurs and no rubs GI: Inspection: Yes normal to inspection Palpation (GI): Soft to palpation and nontender Percussion: Yes normal to percussion Auscultation: normal bowel sounds Skin: General skin exam: no rashes or lesions noted, turgor normal and no ecchymosis Neuro: General: patient oriented x3 Extrem: General: Yes normal to inspection, Yes capillary refill normal, No clubbing and No cyanosis Procedures Date of Service Date of Service: 01/01/22 Progress Note: A&P Assessment and plan (1) Spontaneous pneumothorax: Status: Acute Assessment and Plan: Patient is a 46-year-old female with a smoking history of cigarettes and marijuana as well as intranasal cocaine abuse. Patient arrived to [facility] approximately 2 days ago with increased shortness of breath which began on Thursday. A chest x-ray revealed a right spontaneous pneumothorax. A right-sided pigtail catheter was placed by ED physician with full resolution of right-sided pneumothorax. Right-sided chest tube remained on Heimlich valve overnight. Pigtail catheter was placed to Atrium pleural vac device which detected no air leak. Morning chest x-ray revealed complete resolution of right-sided pneumothorax. Right-sided pigtail catheter removed without incident and dry occlusive dressing put in place with instructions to remove dressing no sooner than 48 hours. Once dressing is removed patient may leave previous chest tube site to room air while it fully heals. patient is okay to be discharged 2 hours from chest tube removal as long as she does not display any increased shortness of breath. Fall Risk Details Current Medications: Current Medications Acetaminophen (Acetaminophen 325 Mg Tablet) 650 mg PO Q6H PRN PRN Reason: Pain, Mild (Pain Scale 1-3) Last Admin: 01/01/22 08:59 Dose: 650 mg Documented by: Acetaminophen/Butalbital/Caffeine (Butalb/Acetamin/Caff 50/325/40 Tablet) 1 tab PO Q4H PRN PRN Reason: Headache Albuterol Sulfate (Albuterol Sulfate 90 Mcg 8 Gm Inhaler) 2 puff INHALE Q6H PRN PRN Reason: shortness of breath or wheezing Benzonatate (Benzonatate 100 Mg Capsule) 100 mg PO TID PRN PRN Reason: Cough Last Admin: 12/31/21 07:21 Dose: 100 mg Documented by: Clonazepam (Clonazepam 1 Mg Tablet) 1 mg PO BID PRN PRN Reason: Anxiety Last Admin: 12/31/21 00:01 Dose: 1 mg Documented by: Ketorolac Tromethamine (Ketorolac Tromethamine 15 Mg/Ml Vial) 15 mg IVPUSH Q6H PRN PRN Reason: Pain, Moderate (Pain Scale 4-6 Melatonin (Melatonin 3 Mg Tablet) 6 mg PO BEDTIME PRN PRN Reason: Insomnia Last Admin: 12/31/21 00:01 Dose: 6 mg Documented by: Morphine Sulfate (Morphine Sulfate 4 Mg/Ml Cartridge) 3 mg IVPUSH Q4H PRN; Protocol PRN Reason: Pain, Severe (Pain Scale 7-10) Last Admin: 01/01/22 02:59 Dose: 3 mg Documented by: Nicotine (Nicotine 21 Mg Patch.Td24) 21 mg TRANSDERMA DAILY [facility] Last Admin: 01/01/22 09:02 Dose: 21 mg Documented by: Ondansetron HCl (Ondansetron Hcl 4 Mg/2 Ml Vial) 4 mg IVPUSH Q8H PRN PRN Reason: Nausea and Vomiting Sodium Chloride (0.9 % Sodium Chloride Flush 3 Ml Syringe) [address] [facility] Last Admin: 01/01/22 09:03 Dose: 3 ml Documented by: Vitamin D (Cholecalciferol (Vitamin D3) 25 Mcg Tablet) [address] [facility] Last Admin: 01/01/22 09:00 Dose: 50 mcg Documented by: Time Spent With Patient Time: Total time spent is greater than 50% in coordination of care (as documented) at patient's floor/unit and/or counseling patient: Quality Stroke Does the patient have a stroke diagnosis?: No VTE Prior VTE?: No VTE Risk Level:: Medical - moderate - high VTE Device Contraindication: N/A - Device Ordered VTE Drug Contraindication: Treatment Not Indicated
--- NOTE | 2022-01-01 11:16 | MHC.CM.PN ---
Addendum entered by Tricia Carvajal 01/01/22 12:06: Patient is discharged home today. Patient has arranged for private transport home. Original Note: IMM 12/31/21 Female 46 DX Pneumothorax Lives w DTR. No HCP on file. Ed provided, pt declined offer to Document a HCP. She requires assist with ADLs. She a [facility] services in place. She does not require an AD. A CT was inserted on admit. The CT was removed this am. DP home resume [facility]AB[facility] services. She will arrange for transportation home.
[2022-01-01 11:25] VITALS: BP 124/71; PULSE 86; RESP 18; TEMP 36.3; O2SAT 95
--- NOTE | 2022-01-01 13:15 | P.DS_ITS ---
DS: Providers Provider Date of Service: 01/01/22 Date of admission: 12/30/21 18:13 Primary care physician: Al Alvarez MD Consults: 12/31/21 07:45 Consult to Thoracic Surgery Routine Consulting Provider: Jose Gonzalez Reason for consultation: rt pneumothorax Has provider been notified: No 12/31/21 08:32 Addiction Medicine Routine Consulting Provider: Maria A King Reason for consultation: cocaine use Has provider been notified: No DS: Diagnosis Discharge Diagnosis (1) Spontaneous pneumothorax: Status: Acute (2) Vitamin D deficiency: Status: Acute (3) Current smoker: Status: Acute DS: Summary Hospital Course Hospital Course: Chief Complaint:? shortness of? breath ?46-year-old female patient with past medical history significant for asthma, primary insomnia, vitamin-D deficiency, history of anxiety, bipolar disorder, chronic headaches presented to [facility] with acute onset of shortness of breath and right-sided chest pain that started last night ,without any associated fever, chills , cough without radiation of pain,? patient denies any chest tightness all wheeze, patient is everyday smoker smokes 1 pack per day drinks alcohol to beer few times a night denies history of withdrawal also use cocaine whenever she thinks about her son was killed 3 years ago in front of her,? used cocaine last night intranasally, denies daily use of cocaine, denies other illicit drug use, in the emergency room chest x-ray showed large right- sided pneumothorax therefore? chest tube placed by ER physician repeat chest x- ray showed significant improvement with small residual pneumothorax, patient is now somnolent due to use of ketamine,? 2 mg lorazepam, and 3 mg of Dilaudid, history obtained via diplomatic interpreter/translator and with patient's daughter at bedside.? There is no history of chest trauma. Hospital course 46-year-old female patient presented with acute onset of sudden right-sided c hest pain and shortness of breath chest x-ray showed large right-sided pneumothorax patient is status post chest tube placement now being admitted for continued monitoring and treatment Spontaneous pneumothorax likely due to cocaine inhalation, patient underwent chest tube placement in emergency room repeat chest x-ray showed significant improvement, patient evaluated by thoracic surgery, they attached right-sided pigtail catheter to an atrium device which displayed no air leak, repeat chest x-ray showed no residual pneumothorax, therefore chest tube removed postprocedure patient had no symptoms of shortness of breath or chest pain, oxygenation remains stable therefore she is being discharged home with strong recommendation to abstain from tobacco use and cocaine inhalation. ?tobacco use disorder? smokes 1 pack per day counseling done, being discharged on nicotine patch. ?[place] use disorder has been smoking marijuana since young age, met with addiction team, Patient declined resources or referrals since she has strong family and friend support and has services at home. ?cocaine use disorder? urine toxicology positive for opiates, cocaine, marijuana? med with Addiction Team as above. ?history of mild persistent asthma continue home inhalers. ?chronic unspecified headache, prior MRI brain in August 2019 showed no acute abnormality? was on tramadol 50 mg t.i.d. as needed and propranolol ER 160 mg by mouth q.d. for headache prophylaxis, ?and Fioricet as needed Recommend compliance with home medications. ?vitamin-D deficiency continue with supplement ?history of anxiety / insomnia?continue Ambien, Seroquel, and Klonopin? ?alcohol use disorder no symptoms of withdrawal noted, Strongly recommend to abstain from alcohol. Time Spent with Patient Time attestation: Total time spent providing and/or coordinating discharge services: Discharge coordination time: Greater than 30 minutes Quality: Safe Use of Opioids Does Pt have an Active Cancer Diagnosis on the Problem List?: No Quality: Stroke Does the patient have a stroke diagnosis?: No Physical Exam Vital Signs: Vital Signs: Last Vital Signs Temp 97.4 F 01/01/22 11:25 Pulse 86 01/01/22 11:25 Resp 18 01/01/22 11:25 BP 124/71 01/01/22 11:25 Pulse Ox 95 01/01/22 11:25 Oxygen Flow Rate 2 12/30/21 16:27 BMI result Body Mass Index 30.2 Const: Other: General? ? Awake alert x3 no acute distress.? HEENT PERRLA, anicteric sclera Neck no JVD. CVS? regular rate rhythm, Respiratory lungs clear to auscultation, no respiratory distress, no wheeze, no rhonchi, diminished at bases, no crepitus no subcutaneous emphysema Gastrointestinal abdomen soft, nontender, bowel sounds audible, no guarding , no rigidity. Extremities no edema. Neuro nonfocal Skin no rash Discharge Plan Discharge Patient Disposition: Home, Self-Care Discharge Diagnosis: right spontaneous pneumothorax polysubstance use disorder Referrals: Al Alvarez MD [Primary Care Provider] - 1 Week Discharge Medications: New nicotine 21 mg/24 hr Patch 24 Hour 21 mg transdermal DAILY Qty: 28 0RF Continued sertraline 50 mg tablet 50 mg PO BEDTIME 0RF cholecalciferol (vitamin D3) 50 mcg (2,000 unit) capsule 50 mcg PO DAILY 90 Days Qty: 90 3RF propranolol 160 mg capsule,extended release 24 hr 160 mg PO DAILY 90 Days Qty: 90 3RF albuterol sulfate 90 mcg/actuation HFA aerosol inhaler 2 puff inhalation Q6H PRN (Reason: shortness of breath or wheezing) 30 Days Qty: 8.5 5RF quetiapine 50 mg tablet 50 mg PO BEDTIME 0RF clonazepam 1 mg tablet 1 mg PO BID PRN (Reason: Anxiety) 0RF Discharge Orders: Discharge Order (Routine); Ordered 01/01/22 Ordered By: [place] Daily Diet: advance to usual diet Activity on Discharge: As tolerated Stand Alone Forms: Patient Portal Discharge page Care Plan Goals: you had spontaneous pneumothorax treated with chest tube, strongly recommend to abstain from cocaine inhalation and smoking, abstain from alcohol Health Concerns: take all home medications as prescribed Plan of Treatment: follow-up with primary care physician in 1-2 weeks Assessment: as per dc summary
== END 2022-01-01 14:22 | disposition home or self-care (01) | DRG 918 ==
LOC: HO.ED 16:27 → HO.EDOVER 18:19 → HO.IMC 12-31 11:23
PROVIDERS: Admitting Provider Hospitalist; Emergency Provider Emergency Medicine; PCP Internal Medicine; Visit Provider Hospitalist
DX: T40.5X1A Poisoning by cocaine, accidental (unintentional), initial encounter (principal); J93.83 Other pneumothorax; J45.20 Mild intermittent asthma, uncomplicated; F31.9 Bipolar disorder, unspecified; R51.9 Headache, unspecified; E66.9 Obesity, unspecified; Z68.30 Body mass index [BMI] 30.0-30.9, adult; F10.10 Alcohol abuse, uncomplicated; E55.9 Vitamin D deficiency, unspecified; F17.210 Nicotine dependence, cigarettes, uncomplicated; F14.10 Cocaine abuse, uncomplicated; F12.10 Cannabis abuse, uncomplicated; Z20.822 Contact with and (suspected) exposure to COVID-19; Z79.899 Other long term (current) drug therapy
CPT/HCPCS: 36415; 71045; 80048; 80307; 84484; 85025; 85379; 85610; 87635; 93005; 96374; 96375; 96376; 99152; 99153; 99285; 99291; J1170; J2060; J2270; J2405

== ENCOUNTER 2023-01-22 13:30 | Emergency (ER) | payer OTHER, SELFPAY ==
--- NOTE | ~2023-01-22 | XR_ITS ---
EXAMINATION: XR LUMBOSACRAL SPINE CLINICAL INFORMATION: Lower back pain COMPARISON: 06/12/2009. TECHNIQUE: Three views of the lumbosacral spine. FINDINGS: There are five segmented, nonrib-bearing vertebra of the lumbar spine. The vertebral bodies have normal height and alignment with exception of L5-S1. The curvature of the lumbar spine is normal. The disc spaces are maintained at all levels with exception of [id number] disc space narrowing, vacuum disc phenomenon and anterior vertebral osteophyte formation at L5-S1. There are chronic bilateral pars interarticularis defects of L5 with chronic grade 1 anterolisthesis of L5 on S1. No lytic or osteoblastic lesion. Sacrum and sacroiliac joints are normal. XR/XR lumbar spine 2-3V IMPRESSION: * No vertebral compression fractures. * Chronic L5 spondylolysis with grade 1 anterolisthesis of L5 on S1. * Eaar-ie-[id number] disc degenerative change at L5-S1.
[2023-01-22 13:33] VITALS: BP 124/71; PULSE 84; RESP 15; TEMP 36.6; O2SAT 98; BMI 22.7
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
[2023-01-22] MEDS: Ketorolac Tromethamine 15 MG/ML VIAL 30 MG IM (16:06)
[2023-01-22] MEDS: Cyclobenzaprine HCl 5 MG TABLET PO (16:06)
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
== END 2023-01-22 16:27 | disposition home or self-care (01) ==
PROVIDERS: Emergency Provider Student in an Organized Health Care Education/Training Program; PCP Internal Medicine
DX: S39.012A Strain of muscle, fascia and tendon of lower back, initial encounter (principal); V42.5XXA Car driver injured in collision with two- or three-wheeled motor vehicle in traffic accident, initial encounter; Y93.89 Activity, other specified; Y92.414 Local residential or business street as the place of occurrence of the external cause; Y99.9 Unspecified external cause status
CPT/HCPCS: 72100; 96372; 99283; 99284; J1885

== ENCOUNTER 2023-01-29 09:37 | Outpatient (REF) | payer OTHER, SELFPAY ==
[2023-01-29 09:54] LABS: MANUAL DIFF FLAG NO
[2023-01-29 10:25] LABS: Basophils Percent Auto 0.3 % (0-2); Eosinophils Absolute Auto 0.2 X10*3/uL (0.0-0.4); Hematocrit 40.6 % (37.0-47.0); Hemoglobin 13.2 g/dl (12.0-16.0); Imm Gran Abs Auto 0.01 X10*3/uL (0.00-0.03); Imm Gran Pct Auto 0.2 % (0.0-0.4); Lymphocytes Percent Auto 47.7 % (20-40); Mean Corpuscular HGB Conc 32.5 g/dl (31.0-35.0); Mean Corpuscular Hemoglobin 27.5 pg (27.0-33.0); Mean Corpuscular Volume 84.6 fL (80.0-98.0); Mean Platelet Volume 9.4 fL (9.4-12.3); Monocytes Absolute Auto 0.4 X10*3/uL (0.1-1.2); Monocytes Percent Auto 6.7 % (2-11); Neutrophils Absolute Auto 2.6 x10*3/uL (2.0-8.3); Neutrophils Percent Auto 42.1 % (45-73); Platelet Count 354 X10*3/uL (160-400); Red Cell Distribution Width 14.1 % (11.0-16.0); White Blood Count 6.3 X10*3/uL (4.8-10.8)
[2023-01-29 11:09] LABS: Alanine Aminotransferase 21 U/L (0-31); Albumin Level 4.2 g/dL (3.5-5.0); Alkaline Phosphatase 39 U/L (39-117); Anion Gap 14 (12-20); Aspartate Amino Transferase 20 U/L (5-31); Bilirubin Total 0.4 mg/dL (0.0-1.0); Blood Urea Nitrogen 12 mg/dL (9-16); Calcium 9.3 mg/dL (8.4-10.2); Carbon Dioxide 24 mmol/L (22-29); Chloride 107 mmol/L (96-108); Cholesterol 164 mg/dL; Estimated Glomerular Filt Rate > 60; Glucose Fasting 84 mg/dL (60-99); HDL Cholesterol 51 mg/dL; LDL Cholesterol Calculated 91 mg/dl; Potassium 4.1 mmol/L (3.3-5.1); Sodium 141 mmol/L (135-145); Total Protein 6.6 g/dL (6.5-8.0); Triglycerides 111 mg/dL
[2023-01-29 11:11] LABS: Appearance Urine Cloudy; Color Urine Yellow; Glucose Urine UA Negative (Negative); Leukocyte Esterase Urine Negative (Negative); Nitrite Urine Negative (Negative); PH 5.5 (5.0-9.0); Specific Gravity - Urine >= 1.030 (1.005-1.025); UMIC TRIGGER UACC YES; Urine Blood Trace (Negative); Urine Ketones Trace mg/dL (Negative); Urine Protein Trace mg/dL (Neg-Trace)
[2023-01-29 11:28] LABS: TSH reflex Free T4 1.13 uIU/mL (0.32-4.0); Vitamin D 25-OH Total 14.2 ng/mL (>30)
[2023-01-29 11:30] LABS: Bacteria Urine 2+ (None Seen); Calcium Oxalate Crystals Urine Present; Hyaline Casts Urine 0-2 /LPF (0-2); WBC Urine 0-5 /HPF (0-5)
[2023-01-30 04:32] LABS: Syphilis Screen Nonreactive (Nonreactive)
[2023-01-30 04:51] LABS: HBc Num1 0.05 S/CO (0.00-0.79); HBsAGNum1 0.29 S/CO (0.00-0.99); HIV AB/AG Nonreactive (Nonreactive); HIV Num 1 0.07 S/CO (0.00-0.99); Hepatitis B Core Antibody Nonreactive (Nonreactive); Hepatitis B Surface Antigen Negative (Negative); ~Hepatitis B Surface Antibody NONREACTIVE (Nonreactive); ~Hepatitis C Antibody Nonreactive (Nonreactive)
[2023-02-05 12:48] LABS: HSV 1 IgM IFA Negative (Negative); HSV 2 IgM IFA Negative (Negative)
== END 2023-01-29 09:38 | disposition home or self-care (01) ==
LOC: HO.LAB 09:37
PROVIDERS: PCP Internal Medicine; Visit Provider Internal Medicine
DX: Z00.00 Encounter for general adult medical examination without abnormal findings (principal); Z11.4 Encounter for screening for human immunodeficiency virus [HIV]; E78.00 Pure hypercholesterolemia, unspecified; E55.9 Vitamin D deficiency, unspecified; Z20.2 Contact with and (suspected) exposure to infections with a predominantly sexual mode of transmission
CPT/HCPCS: 36415; 80053; 80061; 81001; 81003; 82306; 84443; 85025; 86695; 86696; 86704; 86706; 86780; 86803; 87340; 87389

== ENCOUNTER 2023-03-17 12:23 | Outpatient (REF) | payer OTHER, SELFPAY ==
[2023-03-17 14:50] LABS: Appearance Urine Clear; Color Urine Yellow; Glucose Urine UA Negative (Negative); Leukocyte Esterase Urine Negative (Negative); Nitrite Urine Negative (Negative); Urine Blood Negative (Negative); Urine Ketones Negative (Negative); Urine Protein Negative (Neg-Trace)
== END 2023-03-17 12:24 | disposition home or self-care (01) ==
LOC: HO.LAB 12:23
PROVIDERS: PCP Internal Medicine; Visit Provider Internal Medicine
DX: Z00.00 Encounter for general adult medical examination without abnormal findings (principal); R30.0 Dysuria
CPT/HCPCS: 81003

== ENCOUNTER 2023-04-07 17:30 | Emergency (ER) | payer OTHER, SELFPAY ==
--- NOTE | 2023-04-07 17:35 | ED_ITS ---
HPI - General Adult General Stated complaint: R arm lac Source: patient Mode of arrival: ambulatory Limitations: no limitations History of Present Illness HPI narrative: patient is a 47-year-old female with a past medical history of bipolar depression presenting with a laceration to the lateral aspect of the right arm. Patient reports that a mirror broke and she cut herself. Patient reports this happened right before coming to the emergency department she came because she was worried she might need stitches. Patient is up-to-date on tetanus. Patient denies fever, chills, night sweats, numbness, tingling, nausea, vomiting, headache, vision changes, chest pain, shortness of breath. Related Data Home Medications Medication Instructions Recorded Confirmed miscellaneous medical supply ea miscellaneous 06/30/22 01/23/23 miscellaneous medical supply ea miscellaneous 06/30/22 01/23/23 Previous Rx's Medication Instructions Recorded nicotine 21 mg/24 hr daily 21 mg transdermal DAILY #28 ea 01/01/22 transdermal patch Cane #1 ea 01/07/22 albuterol sulfate 90 mcg/actuation 2 puff inhalation Q6H PRN 01/07/22 aerosol inhaler shortness of breath or wheezing 30 days #8.5 grams Bedside Commode #1 ea 05/06/22 clonazepam 1 mg tablet 1 mg PO BID PRN Anxiety 15 days 05/06/22 #30 tabs propranolol 160 mg capsule,24 160 mg PO DAILY 90 days #90 caps 05/06/22 hr,extended release Handheld Shower #1 ea 06/30/22 Shower Chair #1 ea 06/30/22 quetiapine 50 mg tablet 50 mg PO BEDTIME 30 days #30 tabs 07/28/22 sertraline 50 mg tablet 50 mg PO BEDTIME #30 tabs 08/26/22 acetaminophen 500 mg tablet 500 mg PO Q6H PRN fever or pain 01/22/23 (Tylenol Extra Strength) #14 tabs cyclobenzaprine 5 mg tablet 5 mg PO Q8H PRN pain (scale score 01/22/23 7-10) 5 days #14 tabs lidocaine 5 % topical patch 1 patch topical DAILY PRN pain #30 01/22/23 (Lidoderm) ea naproxen 500 mg tablet 500 mg PO BID PRN pain 10 days #20 01/22/23 tabs cholecalciferol (vitamin D3) 50 50 mcg PO DAILY 90 days #90 caps 01/23/23 mcg (2,000 unit) capsule tramadol 50 mg tablet 50 mg PO TID PRN headache 10 days 01/23/23 #30 tabs Allergies Allergy/AdvReac Type Severity Reaction Status Date / Time No Known Allergies Allergy Verified 01/23/23 14:03 Review of Systems Review of Systems: Constitutional : No Fever, No Chills, Cardiovascular : No Chest Pain, No SOB Respiratory : No Dyspnea Gastrointestinal : No abdominal pain Musculoskeletal : No Joint Swelling Skin : No rash, positive skin laceration Neuro : No Weakness, No Numbness Psych : No SI/HI Yes all other systems are reviewed and are negative PMFSH Past Medical History Attestation statement: The following information was validated with the patient. Source: old records reviewed and nursing notes reviewed Medical History Anxiety Asthma Bipolar depression Current smoker Overweight (BMI 25.0-29.9) Persistent headaches Primary insomnia Spontaneous pneumothorax Vitamin D deficiency Surgical History History of tubal ligation Family History Family History Father No problems noted. Mother No problems noted. Maternal Grandmother Breast cancer Paternal Aunt Breast cancer Family/Other FH: mental illness Other Mental health problem Social History Social History Household Members: Children Housing: Apartment Do you presently have visiting nurse or other home services: Yes Alcohol intake: never Patient Tobacco Use Status: Current everyday Tobacco user Tobacco use type: Cigarette Cigarette Packs Per Day: 2 Second Hand Smoke Exposure: Yes Substance Use Type: Crack/Cocaine and Marijuana service: No Current occupational status: disabled Cognitive needs: No Hearing needs: No Vision needs: No Physical Exam ED Vital Signs: VSS Appearance: Alert.? Oriented X3.? No acute distress.? Head: Normocephalic, atraumatic, no step-offs or deformities Eyes: Pupils equal, round and reactive to light.? CVS: Normal heart rate and rhythm.? Pulses normal.? Respiratory: No respiratory distress.? Breath sounds normal.? Abdomen: Soft and nontender.? Skin: Skin warm and dry.? Normal skin color.? Normal skin turgor.?+Skin laceration to the right forearm Extremities: No lower extremity edema.? No calf ttp. 5/5 strength to bilateral upper and lower extremities 2+ radial pulses bilaterally with distal sensation intact bilaterally. 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 No motor deficit.? No sensory deficit. CN 2-12 intact Medical Decision Making Medical Decision Making MDM Narrative: 47-year-old female presents with laceration to the forearm. Up-to-date on tetanus. Physical exam: 3 cm laceration to the right lateral forearm. Neurovascular status intact. Likely simple laceration unlikely infection of, no signs of neurovascular compromise, no signs of threatened limb. No signs of fractures, dislocations, foreign bodies. In triage wound was irrigated. Dermabond applied at triage, no need for sutures. No need for imaging. Plan is for discharge home. Educated patient on diagnosis and treatment plan, answered all question, patient verbalizes understanding. At this time patient will be discharged home, advised to return with new or worsening symptoms. Educated on worrisome signs and symptoms and when to return. At this time I feel comfortable discharge home. Differential Diagnosis Differential Diagnoses: The differential diagnosis associated with the presentation includes Likely simple laceration unlikely infection of, no signs of neurovascular compromise, no signs of threatened limb. No signs of fractures, dislocations, foreign bodies. Admission/Observation Consideration of admission/observation: Escalation of care including admission/observation considered Not indicated. Tests considered The following testing was considered but not selected: No signs of fracture, dislocation. No need for imaging. Core Measures AMI core measures followed: Yes Measure exclusions: not indicated Critical Care Time Critical Care Time Critical Care Time: No Discharge Plan Discharge Clinical Impression: Laceration of forearm Patient Disposition: Home, Self-Care Instructions: Laceration (DC), Laceration (ED) Additional Instructions: Take your medications as prescribed. If you were prescribed antibiotics today, it is important that you take your medication to their entirety, do not skip any doses, do not finish them early. Follow-up with your primary care provider this week. Return to the emergency department with new or worsening symptoms. Such as fevers, chills, chest pain, shortness of breath, nausea, vomiting, dizziness, headache, vision changes, lethargy In case of emergency call 911 Prescriptions: No Action propranolol 160 mg capsule,extended release 24 hr 160 mg PO DAILY 90 Days Qty: 90 3RF clonazepam 1 mg tablet 1 mg PO BID PRN (Reason: Anxiety) 15 Days Qty: 30 1RF (DME) Bedside Commode See Rx Instructions .Route .MEDSUPPLY Qty: 1 0RF Rx Instructions: As directed miscellaneous medical supply Mis miscellaneous Rx Instructions: Shower Chair miscellaneous medical supply Misc miscellaneous Rx Instructions: Hand Held Shower Head (DME) Handheld Shower See Rx Instructions .Route .MEDSUPPLY Qty: 1 0RF Rx Instructions: As directed (DME) Shower Chair See Rx Instructions .Route .MEDSUPPLY Qty: 1 0RF Rx Instructions: As directed quetiapine 50 mg tablet 50 mg PO BEDTIME 30 Days Qty: 30 1RF Rx Instructions: Coverage for Dr. Alvarez sertraline 50 mg tablet 50 mg PO BEDTIME Qty: 30 2RF Rx Instructions: Coverage for Dr. Alvarez nicotine 21 mg/24 hr Patch 24 Hour 21 mg transdermal DAILY Qty: 28 0RF acetaminophen [Tylenol Extra Strength] 500 mg tablet 500 mg PO Q6H PRN (Reason: fever or pain) Qty: 14 0RF lidocaine [Lidoderm] 5 % adhesive patch,medicated 1 patch topical DAILY MDD remove after 12 hours PRN (Reason: pain) Qty: 30 0RF Rx Instructions: leave on most painful area for up to 12 hrs naproxen 500 mg tablet 500 mg PO BID PRN (Reason: pain) 10 Days Qty: 20 0RF cyclobenzaprine 5 mg tablet 5 mg PO Q8H PRN (Reason: pain (scale score 7-10)) 5 Days Qty: 14 0RF (DME) Cane See Rx Instructions .Route .MEDSUPPLY Qty: 1 0RF Rx Instructions: As directed albuterol sulfate 90 mcg/actuation HFA aerosol inhaler 2 puff inhalation Q6H PRN (Reason: shortness of breath or wheezing) 30 Days Qty: 8.5 5RF tramadol 50 mg tablet 50 mg PO TID PRN (Reason: headache) 10 Days Qty: 30 1RF cholecalciferol (vitamin D3) 50 mcg (2,000 unit) capsule 50 mcg PO DAILY 90 Days Qty: 90 3RF Referrals: Al Alvarez MD [Primary Care Provider] - 2 days Stand Alone Forms: Work/School Release
[2023-04-07 17:44] VITALS: BP 125/59; PULSE 83; RESP 17; TEMP 36.3; O2SAT 98; BMI 31.1
== END 2023-04-07 18:14 | disposition home or self-care (01) ==
PROVIDERS: Emergency Provider Student in an Organized Health Care Education/Training Program; PCP Internal Medicine
DX: S51.811A Laceration without foreign body of right forearm, initial encounter (principal); W26.8XXA Contact with other sharp object(s), not elsewhere classified, initial encounter; Y93.9 Activity, unspecified; Y92.9 Unspecified place or not applicable; Y99.9 Unspecified external cause status; F17.210 Nicotine dependence, cigarettes, uncomplicated
CPT/HCPCS: 12002; 99281; 99282

== ENCOUNTER 2023-04-10 11:52 | Emergency (ER) | payer OTHER, SELFPAY ==
[2023-04-10 11:58] VITALS: BP 121/75; PULSE 71; RESP 16; TEMP 36.6; O2SAT 100; BMI 26.6
--- NOTE | 2023-04-10 11:58 | ED.WOUNDLAC ---
HPI - Wound/Laceration General Stated Complaint: stitches opened Source: patient and family Mode of arrival: ambulatory Limitations: no limitations History of Present Illness HPI narrative: 47 yo female with PMHx significant for bipolar depression presenting today c/o wound dehiscence to laceration to dorsal left forearm noted today, that was repaired w/ dermabond at our facility on 04/07/23. Patient reports the laceration today. No bleeding, discharge, or erythema. No fever or chills. Onset (ago): day(s) Related Data Home Medications Medication Instructions Recorded Confirmed miscellaneous medical supply ea miscellaneous 06/30/22 01/23/23 miscellaneous medical supply ea miscellaneous 06/30/22 01/23/23 Previous Rx's Medication Instructions Recorded nicotine 21 mg/24 hr daily 21 mg transdermal DAILY #28 ea 01/01/22 transdermal patch Cane #1 ea 01/07/22 albuterol sulfate 90 mcg/actuation 2 puff inhalation Q6H PRN 01/07/22 aerosol inhaler shortness of breath or wheezing 30 days #8.5 grams Bedside Commode #1 ea 05/06/22 propranolol 160 mg capsule,24 160 mg PO DAILY 90 days #90 caps 05/06/22 hr,extended release Handheld Shower #1 ea 06/30/22 Shower Chair #1 ea 06/30/22 quetiapine 50 mg tablet 50 mg PO BEDTIME 30 days #30 tabs 07/28/22 sertraline 50 mg tablet 50 mg PO BEDTIME #30 tabs 08/26/22 acetaminophen 500 mg tablet 500 mg PO Q6H PRN fever or pain 01/22/23 (Tylenol Extra Strength) #14 tabs cyclobenzaprine 5 mg tablet 5 mg PO Q8H PRN pain (scale score 01/22/23 7-10) 5 days #14 tabs lidocaine 5 % topical patch 1 patch topical DAILY PRN pain #30 01/22/23 (Lidoderm) ea naproxen 500 mg tablet 500 mg PO BID PRN pain 10 days #20 01/22/23 tabs cholecalciferol (vitamin D3) 50 50 mcg PO DAILY 90 days #90 caps 01/23/23 mcg (2,000 unit) capsule tramadol 50 mg tablet 50 mg PO TID PRN headache 10 days 01/23/23 #30 tabs clonazepam 1 mg tablet 1 mg PO BID PRN Anxiety 15 days 04/08/23 #30 tabs Allergies Allergy/AdvReac Type Severity Reaction Status Date / Time No Known Allergies Allergy Verified 01/23/23 14:03 Review of Systems Review of Systems: Constitutional: No Fever, No Chills ENT/Mouth: No Ear Pain, No Nasal Congestion, No Swallowing Difficulty Cardiovascular: No Chest Pain, No SOB Respiratory: No Cough, No Sputum, No Wheezing Gastrointestinal: No Nausea, No Vomiting, No Abdominal pain Genitourinary: No Dysuria,No Urgency, No Flank Pain Musculoskeletal: No joint pain, No Myalgias, No Joint Swelling Skin: + Skin Lesions, No rash Neuro: No Weakness, No Numbness, No Paresthesias Yes all other systems are reviewed and are negative Constitutional: Constitutional: Reports as per [facility] Past Medical History Attestation statement: The following information was validated with the patient. Source: old records reviewed and nursing notes reviewed Medical History Anxiety Asthma Bipolar depression Current smoker Overweight (BMI 25.0-29.9) Persistent headaches Primary insomnia Spontaneous pneumothorax Vitamin D deficiency Surgical History History of tubal ligation Family History Family History Father No problems noted. Mother No problems noted. Maternal Grandmother Breast cancer Paternal Aunt Breast cancer Family/Other FH: mental illness Other Mental health problem Social History Social History Household Members: Children Housing: Apartment Do you presently have visiting nurse or other home services: Yes Alcohol intake: never Patient Tobacco Use Status: Current everyday Tobacco user Tobacco use type: Cigarette Cigarette Packs Per Day: 2 Second Hand Smoke Exposure: Yes Substance Use Type: Crack/Cocaine and Marijuana service: No Current occupational status: disabled Cognitive needs: No Hearing needs: No Vision needs: No Physical Exam Const: General: cooperative, healthy appearing and no acute distress Orientation/consciousness: patient oriented x3 Limitations: no limitations HEENT: Head: Yes normal to inspection and Yes atraumatic Ears: hearing grossly normal bilaterally General nose exam: Normal external nose present Face and sinus: Yes normal facial exam Eyes: General: appearance normal, both eyes and all related structures EOM: EOMs intact bilaterally Neck: Neck: Yes normal visual inspection and Yes no meningeal signs Resp: Effort & Inspection: normal respiratory effort and no respiratory distress Cardio: Rate: regular rate Skin: Other: Laceration noted to right lateral forearm with central wound dehiscence. No active bleeding. No fluctuance/induration or drainage Rashes: no rashes Neuro: General: patient oriented x3, tone normal and no meningeal signs Gait exam (Neuro): Normal gait present Extrem: General: Yes normal to inspection Medical Decision Making Medical Decision Making MDM Narrative: 47 yo female with PMHx significant for bipolar depression presenting today c/o wound dehiscence to laceration to dorsal left forearm noted today, that was repaired w/ dermabond at our facility on 04/07/23. On exam vital signs stable, NAD, nontoxic appearing, physical exam as noted above with mild wound he since to right forearm. Discussed with patient cannot reclosed with Dermabond or sutures, will close with Steri-Strips. Closed appropriately. Results discussed with patient including worrisome signs and symptoms and strict return precautions, and when to return to the emergency department. They verbalized understanding and feel safe for discharge at this time. Differential Diagnosis Differential Diagnoses: The differential diagnosis associated with the presentation includes As above Independent Historian Clinical information obtained from an independent historian. History obtained from or confirmed by: Friend External Record Review External record reviewed: Inpatient record, Office record, Outpatient record, Prior outpatient labs, Prior outpatient radiology, Primary care record and Outside ED record Tests considered The following testing was considered but not selected: As above Discharge Plan Discharge Clinical Impression: Dehiscence of wound, Visit for wound care Patient Disposition: Home, Self-Care Additional Instructions: Keep Steri-Strips on, dry and clean, they will fall off on their own Three begins look infected, is red there is drainage or ear fever return to the ED Prescriptions: No Action propranolol 160 mg capsule,extended release 24 hr 160 mg PO DAILY 90 Days Qty: 90 3RF (DME) Bedside Commode See Rx Instructions .Route .MEDSUPPLY Qty: 1 0RF Rx Instructions: As directed miscellaneous medical supply Misc miscellaneous Rx Instructions: Shower Chair miscellaneous medical supply Misc miscellaneous Rx Instructions: Hand Held Shower Head (DME) Handheld Shower See Rx Instructions .Route .MEDSUPPLY Qty: 1 0RF Rx Instructions: As directed (DME) Shower Chair See Rx Instructions .Route .MEDSUPPLY Qty: 1 0RF Rx Instructions: As directed quetiapine 50 mg tablet 50 mg PO BEDTIME 30 Days Qty: 30 1RF Rx Instructions: Coverage for Dr. Alvarez sertraline 50 mg tablet 50 mg PO BEDTIME Qty: 30 2RF Rx Instructions: Coverage for Dr. Alvarez clonazepam 1 mg tablet 1 mg PO BID PRN (Reason: Anxiety) 15 Days Qty: 30 1RF nicotine 21 mg/24 hr Patch 24 Hour 21 mg transdermal DAILY Qty: 28 0RF acetaminophen [Tylenol Extra Strength] 500 mg tablet 500 mg PO Q6H PRN (Reason: fever or pain) Qty: 14 0RF lidocaine [Lidoderm] 5 % adhesive patch,medicated 1 patch topical DAILY MDD remove after 12 hours PRN (Reason: pain) Qty: 30 0RF Rx Instructions: leave on most painful area for up to 12 hrs naproxen 500 mg tablet 500 mg PO BID PRN (Reason: pain) 10 Days Qty: 20 0RF cyclobenzaprine 5 mg tablet 5 mg PO Q8H PRN (Reason: pain (scale score 7-10)) 5 Days Qty: 14 0RF (DME) Cane See Rx Instructions .Route .MEDSUPPLY Qty: 1 0RF Rx Instructions: As directed albuterol sulfate 90 mcg/actuation HFA aerosol inhaler 2 puff inhalation Q6H PRN (Reason: shortness of breath or wheezing) 30 Days Qty: 8.5 5RF tramadol 50 mg tablet 50 mg PO TID PRN (Reason: headache) 10 Days Qty: 30 1RF cholecalciferol (vitamin D3) 50 mcg (2,000 unit) capsule 50 mcg PO DAILY 90 Days Qty: 90 3RF Referrals: Physician,Unknown J [Primary Care Provider] - 5 days
--- NOTE | 2023-04-10 12:07 | PC.NURSE ---
WOUND WAS SECURED WITH A STERI STRIP BY SHANKAR NO ACTIVE BLEEDING
== END 2023-04-10 12:09 | disposition home or self-care (01) ==
PROVIDERS: Emergency Provider Emergency Medicine
DX: Z48.02 Encounter for removal of sutures (principal); Z79.899 Other long term (current) drug therapy
CPT/HCPCS: 99282

== ENCOUNTER 2023-07-24 13:32 | Outpatient (AMB) | payer OTHER, SELFPAY ==
[2023-07-24 13:34] VITALS: BP 120/70; PULSE 60; RESP 17; O2SAT 97; BMI 27.5
--- NOTE | 2023-07-24 13:34 | A.OFFPC_ITS ---
Vital Signs 07/24/23 13:34 Height 5 ft 5 in Weight 165 lb 2 oz BMI 27.5 BP 120/70 Blood Pressure Location Lt brachial Position Sitting Respiration 17 Pulse 60 Pulse Source Pulse Oximeter Pulse Oximetry (%) 97 Oxygen Delivery Method Room Air Intake Visit Reasons: 6 month f/u Labor Economist Required: Yes Labor Economist Language: Mohawk Accompanied by: Self / Same As Patient Allergies No Known Allergies Allergy (Verified 07/24/23 14:18) Medication List - Last Reconciled 07/27/23 by Al Alvarez MD acetaminophen (Tylenol Extra Strength) 500 mg PO Q6H PRN albuterol sulfate 90 mcg/actuation 2 puffs inhalation Q6H PRN 30 days [Bedside Commode As directed] [Cane As directed] cholecalciferol (vitamin D3) 50 mcg PO DAILY 90 days clonazepam 1 mg PO BID PRN 15 days cyclobenzaprine 5 mg PO Q8H PRN 5 days [Handheld Shower As directed] lidocaine 5% (Lidoderm) 1 patch topical DAILY PRN MDD remove after 12 hours miscellaneous medical supply Shower Chair miscellaneous medical supply Hand Held Shower Head naproxen 500 mg PO BID PRN 10 days propranolol ER 160 mg PO DAILY 90 days quetiapine 50 mg PO BEDTIME 30 days sertraline 50 mg PO BEDTIME [Shower Chair As directed] tramadol 50 mg PO TID PRN 10 days Tobacco use date assessed: 01/23/23 Dental Screening Dental Screen Date: 07/24/23 Did you have a dental visit in the last 12 months?: No Did you have a dental problem in the last 6 months where you did not have access to dental care?: No Was dental information given to patient?: No (destures) HPI 6 month f/u HPI Details Patient comes in today for her follow up visit Her visit today is done with the help on american sign language interpreter services - american sign language interpreter # [id number] Patient states that she feels okay She denies any headaches or dizziness Denies any chest pains, no SOB No nausea/vomiting, no abdominal pain No change in bowel habits noted Needs a few of her Rx refilled Would like to know how she did on her labs done back in January 2023 Would also like to get her flu shot today PFSH Medical History Overweight (BMI 25.0-29.9) Spontaneous pneumothorax Vitamin D deficiency Current smoker Bipolar depression Primary insomnia Anxiety Asthma Persistent headaches Surgical History History of tubal ligation Family History Father No problems noted. Mother No problems noted. Maternal Grandmother Breast cancer Paternal Aunt Breast cancer Family/Other FH: mental illness Other Mental health problem Social History Household Members: Children Housing: Apartment Do you presently have visiting nurse or other home services: Yes Alcohol intake: never Patient Tobacco Use Status: Current everyday Tobacco user Tobacco use type: Cigarette Cigarette Packs Per Day: 2 e-Cigarette/Vaping Use: Never Used Second Hand Smoke Exposure: Yes Substance Use Type: Crack/Cocaine and Marijuana service: No Current occupational status: disabled Cognitive needs: No Hearing needs: No Vision needs: No Questionnaire Thrive Questionnaire Date Thrive assessed: 01/23/23 BETZAIDA-7 AMB Questionnaire BETZAIDA-7 Date BETZAIDA - 7 assessed: 01/23/23 Source: Developed by Drs. Micha Hernández, Anna Newman, Oumar Mcmahon and colleagues, with an educational laura from [employer]. Review of Systems Const Denies chills, Denies fatigue, Denies fever(s) and Denies headache(s) ENT Denies dysphagia, Denies dizziness, Denies otalgia, Denies headache(s), Denies neck pain, Denies odynophagia and Denies sore throat Card Denies chest pain, Denies palpitations and Denies dyspnea Resp Denies cough and Denies dyspnea GI Denies abdominal pain, Denies constipation, Denies dysphagia, Denies heartburn, Denies diarrhea, Denies nausea, Denies odynophagia and Denies vomiting Denies difficulty voiding, Denies nocturia and Denies dysuria Musc Denies neck pain Skin/Breast Denies rash Neuro Denies dizziness and Denies headache(s) Endo Denies fatigue and Denies palpitations Physical exam (Primary Care) Vital Signs: Last Vital Signs Pulse 60 07/24/23 13:34 Resp 17 07/24/23 13:34 BP 120/70 07/24/23 13:34 Pulse Ox 97 07/24/23 13:34 Oxygen Delivery Method Room Air 07/24/23 13:34 BMI result Body Mass Index 27.5 Tobacco/Smoking Status: Tobacco use Status Tobacco use date assessed 01/23/23 07/24/23 13:37 Patient Tobacco Use Status Current everyday Tobacco 07/24/23 13:37 Tobacco use type Cigarette 07/24/23 13:37 e-Cigarette/Vaping Use Never Used 07/24/23 13:52 Thrive Assessment: Date of Thrive Assessment Date Thrive assessed 01/23/23 07/24/23 13:37 Const General: no acute distress and alert HENMT Ears: TM's normal bilaterally and EAC's normal Throat: Yes posterior oropharynx normal and Yes tonsils normal (no TP congestion) Neck Neck: Yes no lymphadenopathy and Yes supple Resp Auscultation: clear to auscultation bilaterally, no rales and no wheezes Cardio Rate: regular rate Rhythm: regular rhythm Heart sounds: no murmurs GI Palpation (GI): Soft to palpation and nontender Auscultation: normal bowel sounds Skin Rashes: no rashes Extrem General: Yes no clubbing, cyanosis or edema Office Procedures Flu Questionnaire Does the patient have a severe egg allergy?: No Does the patient have severe life threatening allergies?: No Does the patient have a fever or illness today?: No Has the patient ever had Guillain-[place] Syndrome?: No Has the patient ever had any past reaction to a flu shot?: No Immunizations flu vacc [id number] 6mos up(PF) 60 mcg(15 mcgx4)/0.5 mL IM syringe Performing Provider: Al Alvarez MD [facility] Administered by: GOPAL Coronado on 07/24/23 14:02 Dose Route Admin Location Dispensed Lot Number Expiration Date NDC Police [employer] 0.5 mL IM Left Deltoid 0.5 mL [id number] 03/27/24 33355-480-92 Six Apart VIS Given Date VIS Provided VIS Publication Date 07/24/23 Single Vaccine 21 Eligibility Eligibility Date Funding Source Not VFC Eligible 07/24/23 Private Results Reviewed Results Reviewed: Laboratory Tests 01/29/23 01/29/2323 09:53 09:53 09:53 WBC 6.3 Hgb 13.2 Hct 40.6 Plt Count 354 Sodium 141 Potassium 4.1 Creatinine 0.74 Estimated GFR > 60 Fasting Glucose 84 Calcium 9.3 AST 20 ALT 21 Triglycerides 111 Cholesterol 164 LDL Cholesterol, Calc 91 HDL Cholesterol 51 25-OH Vitamin D Total 14.2 TSH 1.13 Ur Specific [place] Urine Protein Urine Glucose (UA) Urine Blood T.pallidum Ab (EIA) Nonreactive Hep Bs Antigen Negative Hep Bs Antibody NONREACTIVE Hep B Core Total Ab Nonreactive Hepatitis C Ab (EIA) Nonreactive HSV I IgM Ab (IFA) Negative HSV I IgM Titer TNP HSV II IgM Titer TNP HSV II IgM Ab (IFA) Negative HIV 1&2 Ab/P24 Ag 4thGn Nonreactive 03/17/23 03/17/23 12:30 12:30 WBC Hgb Hct Plt Count Sodium Potassium Creatinine Estimated GFR Fasting Glucose Calcium AST ALT Triglycerides Cholesterol LDL Cholesterol, Calc HDL Cholesterol 25-OH Vitamin D Total TSH Ur Specific [place] 1.020 Urine Protein Negative Urine Glucose (UA) Negative Urine Blood Negative T.pallidum Ab (EIA) Hep Bs Antigen Hep Bs Antibody Hep B Core Total Ab Hepatitis C Ab (EIA) HSV I IgM Ab (IFA) HSV I IgM Titer HSV II IgM Titer HSV II IgM Ab (IFA) HIV 1&2 Ab/P24 Ag 4thGn Assessment and Plan Assessment & Plan (1) Asthma: Code(s): J45.909 - Unspecified asthma, uncomplicated Qualifiers: Asthma severity: mild Asthma persistence: intermittent Asthma complication type: uncomplicated Qualified Code(s): J45.20 - Mild intermittent asthma, uncomplicated Plan: Stable - Continue Albuterol inhaler 2 puffs every 6 hours PRN (2) Spontaneous pneumothorax: Code(s): J93.83 - Other pneumothorax Plan: Resolved - S/P chest tube insertion last year (December 2021) with no recurrence Patient is again recommended to refrain from using drugs and smoking to help minimize risks of recurrence of her pneumothorax (3) Headache: Code(s): R51.9 - Headache, unspecified Qualifiers: Headache type: unspecified Headache chronicity pattern: episodic headache Intractability: not intractable Qualified Code(s): R51.9 - Headache, unspecified Plan: MRI of the brain done back in August 2019 came out normal/negative Continue Tramadol 50 mg TID PRN and Fioricet PRN; continue Propranolol ER 160 mg QD for DAY prophylaxis Follow up with neurology as scheduled (4) Vitamin D deficiency: Code(s): E55.9 - Vitamin D deficiency, unspecified Plan: Results of her labs done back in January 2023 reviewed and discussed with patient - is advised that her Vitamin D level is still very low and she should take her Vitamin D daily Continue Vitamin D3 2000 units QD - Rx refilled (5) Primary insomnia: Code(s): F51.01 - Primary insomnia Plan: Sleep hygiene reinforced Continue Zolpidem 10 mg Q HS PRN (6) Anxiety: Code(s): F41.9 - Anxiety disorder, unspecified Plan: Continue Clonazepam 1 mg BID PRN (7) Bipolar depression: Code(s): F31.9 - Bipolar disorder, unspecified Plan: Continue Quetiapine 50 mg Q HS and Sertraline 50 mg QD Follow up with psychiatry as scheduled (8) Current smoker: Code(s): F17.200 - Nicotine dependence, unspecified, uncomplicated Plan: Counseled again on smoking cessation (9) Overweight (BMI 25.0-29.9): Code(s): E66.3 - Overweight Plan: Reinforced diet/exercise as tolerated/lose weight Plan Per request, flu vaccine given today To return in 6 months for her next annual physical examination Patient is reminded to try getting her labs done BEFORE her appointment so we can discuss the results of her labs as well when she is in for her appointment Orders: Orders Complete Blood Count Auto Diff 6 Months J45.909 - Unspecified asthma, uncomplicated, Z00.00 - Encounter for general adult medical examination without abnormal findings Comprehensive [place]. Panel Fast 6 Months J45.909 - Unspecified asthma, uncomplicated, Z00.00 - Encounter for general adult medical examination without abnormal findings UA CC w/rflx Micro + Cult 6 Months R30.0 - Dysuria, Z00.00 - Encounter for general adult medical examination without abnormal findings Influenza [id number] Immunization 07/24/23 Z23 - Encounter for immunization Lipid Panel 6 Months E78.00 - Pure hypercholesterolemia, unspecified, Z00.00 - Encounter for general adult medical examination without abnormal findings TSH reflex Free T4 6 Months Z00.00 - Encounter for general adult medical examination without abnormal findings Vitamin D 25-OH Total 6 Months E55.9 - Vitamin D deficiency, unspecified, Z00.00 - Encounter for general adult medical examination without abnormal findings Medications: Refilled cholecalciferol (vitamin D3) 50 mcg PO DAILY 90 days 90 caps 3RF tramadol 50 mg PO TID 10 days PRN 30 tabs 1RF headache R51.9 - Headache, unspecified albuterol sulfate 90 mcg/actuation 2 puffs inhalation Q6H 30 days PRN 8.5 grams 5RF shortness of breath or wheezing J45.20 - Mild intermittent asthma, uncomplicated Coding Level of Care Code Est Pt Level 4 (81688) Diagnoses Mild intermittent asthma without complication J45.20 Asthma severity: mild Asthma persistence: intermittent Asthma complication type: uncomplicated Spontaneous pneumothorax J93.83 Nonintractable episodic headache, unspecified headache type R51.9 Headache type: unspecified Headache chronicity pattern: episodic headache Intractability: not intractable Vitamin D deficiency E55.9 Primary insomnia F51.01 Anxiety F41.9 Bipolar depression F31.9 Current smoker F17.200 Overweight (BMI 25.0-29.9) E66.3
== END 2023-07-24 14:27 | disposition home or self-care (01) ==
PROVIDERS: Visit Provider Internal Medicine
DX: Z23 Encounter for immunization (principal)
CPT/HCPCS: 90471; 90686; 99214

== ENCOUNTER 2023-11-05 16:02 | Emergency (ER) | payer OTHER, SELFPAY ==
[2023-11-05 16:42] VITALS: BP 104/57; PULSE 69; RESP 16; TEMP 36.6; O2SAT 99; BMI 34.0
--- NOTE | 2023-11-05 16:43 | ED_ITS ---
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-up with textile slitting machine operator in 01/19 complaining of pain and wants earlier appointment no history of ovarian cyst no vaginal discharge no nausea no vomiting no fever no chills no urinary symptoms Related Data Home Medications Medication Instructions Recorded Confirmed miscellaneous medical supply ea miscellaneous 06/30/22 07/27/23 miscellaneous medical supply ea miscellaneous 06/30/22 07/27/23 Previous Rx's Medication Instructions Recorded Cane #1 ea 01/07/22 Bedside Commode #1 ea 05/06/22 propranolol 160 mg capsule,24 160 mg PO DAILY 90 days #90 caps 05/06/22 hr,extended release Handheld Shower #1 ea 06/30/22 Shower Chair #1 ea 06/30/22 sertraline 50 mg tablet 50 mg PO BEDTIME #30 tabs 08/26/22 acetaminophen 500 mg tablet 500 mg PO Q6H PRN fever or pain 01/22/23 (Tylenol Extra Strength) #14 tabs cyclobenzaprine 5 mg tablet 5 mg PO Q8H PRN pain (scale score 01/22/23 7-10) 5 days #14 tabs naproxen 500 mg tablet 500 mg PO BID PRN pain 10 days #20 01/22/23 tabs clonazepam 1 mg tablet 1 mg PO BID PRN Anxiety 15 days 04/08/23 #30 tabs quetiapine 50 mg tablet 50 mg PO BEDTIME 30 days #30 tabs 05/25/23 albuterol sulfate 90 mcg/actuation 2 puff inhalation Q6H PRN 07/24/23 aerosol inhaler shortness of breath or wheezing 30 days #8.5 grams cholecalciferol (vitamin D3) 50 50 mcg PO DAILY 90 days #90 caps 07/24/23 mcg (2,000 unit) capsule ibuprofen 600 mg tablet 600 mg PO Q6H PRN fever or pain 11/05/23 #30 tabs tramadol 50 mg tablet 50 mg PO Q6H PRN pain #20 tabs 02/08/24 Allergies Allergy/AdvReac Type Severity Reaction Status Date / Time No Known Allergies Allergy Verified 11/24/23 15:17 Review of Systems Review of Systems Yes all other systems are reviewed and are negative [facility] Past Medical History Medical History (Updated 11/24/23 @ 16:22 by Liyz Shin CNM) Fibroid uterus Overweight (BMI 25.0-29.9) Spontaneous pneumothorax Vitamin D deficiency Current smoker Bipolar depression Primary insomnia Anxiety Asthma Persistent headaches Surgical History History of tubal ligation Family History Family History Father No problems noted. Mother No problems noted. Maternal Grandmother Breast cancer Paternal Aunt Breast cancer Family/Other FH: mental illness Other Mental health problem Social History Social History Household Members: Children Housing: Apartment Do you presently have visiting nurse or other home services: Yes Alcohol intake: never Patient Tobacco Use Status: Current everyday Tobacco user Tobacco use type: Cigarette Cigarette Packs Per Day: 2 e-Cigarette/Vaping Use: Never Used Second Hand Smoke Exposure: Yes Substance Use Type: Crack/Cocaine and Marijuana service: No Current occupational status: disabled Cognitive needs: No Hearing needs: No Vision needs: No Physical Exam ED Vital Signs: Vital Signs - 24 hr 11/05/23 16:42 11/05/23 19:58 Temperature 98 F 97.7 F Pulse Rate 69 60 Respiratory Rate 16 16 Blood Pressure 104/57 L 132/68 Pulse Oximetry 99 100 Oxygen Delivery Method Room Air Room Air BMI result Body Mass Index 34.0 Appearance: Alert. Oriented X3. No acute distress. Eyes: No pallor ENT: Pharynx normal. Oral Mucosa moist Neck: Normal inspection. Neck supple. CVS: Normal heart rate and rhythm. Pulses normal. Respiratory: No respiratory distress. Equal air entry bilateral, Abdomen: Soft mild discomfort suprapubic no rebound tenderness or guarding Bowel sounds are present, no mass palpable, no CVA tenderness Skin: Skin warm and dry. Normal skin color. Normal skin turgor. Extremities: No lower extremity edema. No calf tenderness Neuro: Oriented X 3. Course Course Course Narrative: RME: Lower abdominal pain with history of uterine fibroids. Pain with urination. Denies irregular vaginal bleeding or discharge. Using tylenol and ibuprofen Medical Decision Making Lab Data 11/05/23 18:36 11/05/23 18:36 Labs: Lab Results 11/05/23 Range/Units 18:36 WBC 5.7 (4.8-10.8) X10*3/uL RBC 4.26 (4.20-5.50) X10*6/uL Hgb 11.6 L (12.0-16.0) g/dl Hct 35.5 L (37.0-47.0) % MCV 83.3 (80.0-98.0) fL MCH 27.2 (27.0-33.0) pg MCHC 32.7 (31.0-35.0) g/dl RDW 14.1 (11.0-16.0) % Plt Count 280 (160-400) X10*3/uL MPV 9.2 L (9.4-12.3) fL Immature Gran % (Auto) 0.4 (0.0-0.4) % Neut % (Auto) 47.9 (45-73) % Lymph % (Auto) 40.0 (20-40) % [place] % (Auto) 8.5 (2-11) % Eos % (Auto) 2.8 (0-4) % Baso % (Auto) 0.4 (0-2) % Lymph # (Auto) 2.3 (1.2-4.9) X10*3/uL [place] # (Auto) 0.5 (0.1-1.2) X10*3/uL Eos # (Auto) 0.2 (0.0-0.4) X10*3/uL Baso # (Auto) 0.0 (0.0-0.2) X10*3/uL Abs Immat Gran (auto) 0.02 (0.00-0.03) X10*3/uL Absolute Neuts (auto) 2.7 (2.0-8.3) x10*3/uL Absolute Nucleated RBC 0.000 (0.0-0.012) X10*3/uL Nucleated RBC % (auto) 0.0 (0.0-0.2) /100WBC Sodium 139 (135-145) mmol/L Potassium 4.1 (3.3-5.1) mmol/L Chloride 105 (96-108) mmol/L Carbon Dioxide 27 (22-29) mmol/L Anion Gap 11 L (12-20) BUN 8 L (9-16) mg/dL Creatinine 0.62 (0.5-1.4) mg/dL Estim Creat Clear Calc 114.2 Estimated GFR > 60 Random Glucose 86 (60-115) mg/dL Calcium 9.1 (8.4-10.2) mg/dL Total Bilirubin 0.1 (0.0-1.0) mg/dL AST 12 (5-31) U/L ALT 12 (0-31) U/L Alkaline Phosphatase 34 L (39-117) U/L Total Protein 6.6 (6.5-8.0) g/dL Albumin 4.0 (3.5-5.0) g/dL Urine Color Yellow Urine Appearance Clear Urine pH 7.5 (5.0-9.0) Ur Specific [place] 1.015 (1.005-1.025) Urine Protein Negative (Neg-Trace) mg/dL Urine Glucose (UA) Negative (Negative) mg/dL Urine Ketones Negative (Negative) mg/dL Urine Blood Negative (Negative) Urine Nitrite Negative (Negative) Ur Leukocyte Esterase Negative (Negative) Urine RBC 0-2 (0-2) /HPF Urine WBC 0-5 (0-5) /HPF Ur Squamous Epith Cells 0-2 (0-2) /HPF Urine Bacteria None Seen (None Seen) Hyaline Casts 0-2 (0-2) /LPF Urine Test NEGATIVE (NEGATIVE) Medications Administered Discontinued Medications Generic Name Dose Route Start Last Admin Trade Name Freq PRN Reason Stop Dose Admin Ibuprofen 600 mg 11/05/23 20:45 11/05/23 21:43 Ibuprofen 600 Mg Tablet PO 11/05/23 20:46 600 mg ONCE ONE Administration Tramadol HCl 50 mg 11/05/23 20:45 11/05/23 21:43 Tramadol Hcl 50 Mg Tablet PO 11/05/23 20:46 50 mg ONCE ONE Administration Discharge Plan Discharge Clinical Impression: Fibroid, uterine Patient Disposition: Home, Self-Care Instructions: Pelvic Pain in Women (ED) Additional Instructions: You have uterine fibroid as you are told by provider at [facility] Follow-up with textile slitting machine operator Pain medication as prescribed Tiene fibroma uterino, seg?n le indic? el proveedor de [facility]. Seguimiento con ginec?logo. Medicamentos para el dolor seg?n lo prescrito Prescriptions: New tramadol 50 mg tablet 50 mg PO Q6H PRN (Reason: pain) Qty: 20 0RF ibuprofen 600 mg tablet 600 mg PO Q6H PRN (Reason: fever or pain) Qty: 30 0RF No Action propranolol 160 mg capsule,extended release 24 hr 160 mg PO DAILY 90 Days Qty: 90 3RF (DME) Bedside Commode See Rx Instructions .Route .MEDSUPPLY Qty: 1 0RF Rx Instructions: As directed miscellaneous medical supply Mis miscellaneous Rx Instructions: Shower Chair miscellaneous medical supply Mis miscellaneous Rx Instructions: Hand Held Shower Head (DME) Handheld Shower See Rx Instructions .Route .MEDSUPPLY Qty: 1 0RF Rx Instructions: As directed (DME) Shower Chair See Rx Instructions .Route .MEDSUPPLY Qty: 1 0RF Rx Instructions: As directed sertraline 50 mg tablet 50 mg PO BEDTIME Qty: 30 2RF Rx Instructions: Coverage for Dr. Alvarez clonazepam 1 mg tablet 1 mg PO BID PRN (Reason: Anxiety) 15 Days Qty: 30 1RF quetiapine 50 mg tablet 50 mg PO BEDTIME 30 Days Qty: 30 1RF Rx Instructions: Coverage for Dr. Alvarez acetaminophen [Tylenol Extra Strength] 500 mg tablet 500 mg PO Q6H PRN (Reason: fever or pain) Qty: 14 0RF naproxen 500 mg tablet 500 mg PO BID PRN (Reason: pain) 10 Days Qty: 20 0RF cyclobenzaprine 5 mg tablet 5 mg PO Q8H PRN (Reason: pain (scale score 7-10)) 5 Days Qty: 14 0RF (DME) Cane See Rx Instructions .Route .MEDSUPPLY Qty: 1 0RF Rx Instructions: As directed albuterol sulfate 90 mcg/actuation HFA aerosol inhaler 2 puff inhalation Q6H PRN (Reason: shortness of breath or wheezing) 30 Days Qty: 8.5 5RF cholecalciferol (vitamin D3) 50 mcg (2,000 unit) capsule 50 mcg PO DAILY 90 Days Qty: 90 3RF Referrals: Tim Valencia MD [Physician] - 2 weeks Discharge Date/Time: 11/05/23 21:41 Print Language: Bangladeshi
[2023-11-05 18:41] LABS: MANUAL DIFF FLAG NO
[2023-11-05 18:42] LABS: Basophils Percent Auto 0.4 % (0-2); Eosinophils Absolute Auto 0.2 X10*3/uL (0.0-0.4); Eosinophils Percent Auto 2.8 % (0-4); Hematocrit 35.5 % (37.0-47.0); Hemoglobin 11.6 g/dl (12.0-16.0); Imm Gran Abs Auto 0.02 X10*3/uL (0.00-0.03); Imm Gran Pct Auto 0.4 % (0.0-0.4); Lymphocytes Absolute Auto 2.3 X10*3/uL (1.2-4.9); Mean Corpuscular HGB Conc 32.7 g/dl (31.0-35.0); Mean Corpuscular Hemoglobin 27.2 pg (27.0-33.0); Mean Corpuscular Volume 83.3 fL (80.0-98.0); Mean Platelet Volume 9.2 fL (9.4-12.3); Monocytes Absolute Auto 0.5 X10*3/uL (0.1-1.2); Monocytes Percent Auto 8.5 % (2-11); Neutrophils Absolute Auto 2.7 x10*3/uL (2.0-8.3); Neutrophils Percent Auto 47.9 % (45-73); Platelet Count 280 X10*3/uL (160-400); Red Blood Count 4.26 X10*6/uL (4.20-5.50); Red Cell Distribution Width 14.1 % (11.0-16.0); White Blood Count 5.7 X10*3/uL (4.8-10.8)
[2023-11-05 18:43] LABS: Appearance Urine Clear; Color Urine Yellow; Glucose Urine UA Negative (Negative); Leukocyte Esterase Urine Negative (Negative); Nitrite Urine Negative (Negative); PH 7.5 (5.0-9.0); Specific Gravity - Urine 1.015 (1.005-1.025); Urine Blood Negative (Negative); Urine Ketones Negative (Negative); Urine Protein Negative (Neg-Trace)
[2023-11-05 18:44] LABS: UPreg QC Valid YES; Urine Pregnancy NEGATIVE (NEGATIVE)
[2023-11-05 18:51] LABS: Bacteria Urine None Seen (None Seen); Hyaline Casts Urine 0-2 /LPF (0-2); RBC Urine 0-2 /HPF (0-2); Squamous Epithelial Cell Urine 0-2 /HPF (0-2); WBC Urine 0-5 /HPF (0-5)
[2023-11-05 18:55] LABS: Alanine Aminotransferase 12 U/L (0-31); Alkaline Phosphatase 34 U/L (39-117); Anion Gap 11 (12-20); Aspartate Amino Transferase 12 U/L (5-31); Bilirubin Total 0.1 mg/dL (0.0-1.0); Blood Urea Nitrogen 8 mg/dL (9-16); Calcium 9.1 mg/dL (8.4-10.2); Carbon Dioxide 27 mmol/L (22-29); Chloride 105 mmol/L (96-108); Creatinine Clr Calc Pharmacy 114.2; Estimated Glomerular Filt Rate > 60; Glucose Random 86 mg/dL (60-115); Potassium 4.1 mmol/L (3.3-5.1); Sodium 139 mmol/L (135-145); Total Protein 6.6 g/dL (6.5-8.0)
--- OUTSIDE RECORDS SUMMARY | 2023-11-05 19:44 | XMS_ITS | Continuity of Care Document ---
Author Name Unknown Organization [facility] Address [address] [place] [id number]- Care Team Providers Care Supervisor Type Disk Quality Control Name Role Phone Al Alvarez MD Primary Care Physician [phone] Encounter [facility] [place](s): 10/23/23 - 10/23/[address] [address]- Encounter Diagnosis Adenomyosis(Final) - 10/23/23 Fibroid(Final) - 10/23/23 Discharge Disposition: A-D/C Home Attending Physician: Derek Peres MD Admitting Physician: Derek Peres MD Referring Physician: Not on Staff, Referring MD Allergies, Adverse Reactions, Alerts No Known Allergies Medications Dilaudid Inj 1 mg, Injection, IV Push Slowly, Once, STAT, 10/23/23 22:22:00 EST, Stop date 10/23/23 22:22:00 EST Start Date: 10/23/23 Stop Date: 10/23/23 Status: Completed ibuprofen 400 mg oral tablet 400 mg, 1, tablet, By Mouth, Every 8 hours, # 30 tablet, Refills 0, Tot. Refills 0, Acute 10/24/23 22:23:00 EST, 10/23/23 22:23:00 EST, Route to Pharmacy Electronically, [facility]/pharmacy #[id number], Partial fill upon patient request if the prescription is for... Start Date: 10/23/23 Stop Date: 10/24/23 Status: Ordered oxyCODONE 5 mg oral tablet 5 mg, 1, tablet, By Mouth, Every 6 hours, PRN, # 8 tablet, Refills 0, Tot. Refills 0, Acute 10/24/23 22:22:00 EST, for pain, 10/23/23 22:22:00 EST, Route to Pharmacy Electronically, [facility]/pharmacy #[id number], Partial fill upon patient request if the prescrip... Start Date: 10/23/23 Stop Date: 10/24/23 Status: Ordered Results Radiology Reports * Exam Date Time Procedure Performing Provider Status 10/23/23 8:[address] Abd/Pelvis W/ IV Contrast Only Daphne Becerra; Auth (Verified) Notes: (CT Abd/Pelvis W/ IV Contrast Only) Reason For Exam: LLQ abdominal pain;Other: RESULT: CT Abd/Pelvis W/ IV Contrast Only CT Abd/Pelvis W/ IV Contrast Only Hx of Present Illness: Pt BIBA cc abd pain. Pt states that she has not had a BM in 1 week.; Reason:Other:; LLQ abdominal pain; Clinical Question(s): Hemorrhage Hematoma; Order Comment: TECHNIQUE: Spiral CT through the abdomen and pelvis with IV contrast formatted in 3 planes. 100 cc of Omnipaque 300 was administered intravenously. This study was performed without oral contrast. Weight-based protocol using automatic tube modulation was used to optimize exposure parameters. CTDIvol Body: 15.30 mGy, DLP Body: 788 mGy*cm. COMPARISON: None. FINDINGS: Kiln Transfer Operator View Findings, Lines and Tubes: None. Visualized Chest: Lung bases are clear. No pleural effusion. The heart is normal in size. No pericardial effusion. Diaphragm: Normal. Liver: Normal. Gallbladder: No CT evidence of gallbladder pathology. Bile ducts: No biliary ductal dilation. Spleen: Normal. Pancreas: Normal. Adrenal glands: Normal. Kidneys and ureters: No hydronephrosis, stones, or suspicious masses. Bladder: Normal. Reproductive organs: Fullness of the left-sided the uterus most likely related to fibroids seen on previous pelvic ultrasound. Stomach, small bowel, and large bowel: Normal. Appendix: Normal. Peritoneum and retroperitoneum: No ascites or pneumoperitoneum. No omental or mesenteric lesions. Lymph nodes: No enlarged lymph nodes. Blood vessels: Normal. No aneurysm. No evidence of venous thrombosis. Abdominal and pelvic wall: Fat-containing umbilical hernia. Bones: L5 bilateral spondylolysis. IMPRESSION: No acute abnormality identified WSN: [id number] Ordering Physician: Derek Peres Dictated By: Gonzalo Cruz MD Dictated Date/Time: 10/23/23 8:41 pm Reviewed By: Gonzalo Cruz MD Signed By: Cruz MD, Gonzalo S Signed Date/Time: 10/23/23 8:41 pm Transcribed By: JERMAINE Transcribed Date/Time: 10/23/23 8:32 pm * Exam Date Time Procedure Performing Provider Status 10/23/23 6:27 PM US Pelvic Transvaginal Umu Doss (Verified) Notes: (US Pelvic Transvaginal) Reason For Exam: Pelvic Pain;Other: RESULT: US Pelvic Transvaginal US Pelvic Transabdominal, US Pelvic Doppler Comp, US Pelvic Transvaginal Reason: Pelvic pain. Constipation; Pelvic Pain; Clinical Question(s): TOA; COMPARISON: None TECHNIQUE: Transabdominal and transvaginal pelvic ultrasound with grayscale, color Doppler, and spectral Doppler analysis. FINDINGS: UTERUS: Size: 9.6 x 5.1 x 6.3 cm, volume 160.5 cc. Endometrial thickness: 0.8 cm. Morphology: Normal configuration. Uterus demonstrates heterogeneous echotexture with bands of increased echogenicity, which are more pronounced posteriorly. Predominantly intramural leiomyoma with submucosal extension measuring up to 3.2 x 2.7 x 2.4 cm in the posterior uterine wall. Subcentimeter nabothian cysts in the cervix. RIGHT OVARY: Size: 2.1 x 3.1 x 1.8 cm, volume 6.0 cc. Morphology: Normal echotexture. No pathologic cysts or mass. Normal arterial and venous waveforms. LEFT OVARY: Not definitively visualized. ADNEXA: Complex heterogeneous fluid collection with internal debris measuring up to 7.9 x 2.2 x 4.3 cm in the cul-de-sac. Minimally complex right adnexal fluid collection with internal debris and possible septation measuring up to 3.5 x 1.7 x 3.4 cm. IMPRESSION: 1. The left ovary was not definitively visualized. Normal right ovary. 2. Minimally complex right adnexal fluid collection. An additional complex collection with internaldebris seen in the cul-de-sac. Etiology for fluid collections could not be identified sonographically. Please consider follow-up with CT. 3. Intramural leiomyoma with submucosal extension measuring up to 3.4 cm maximally in the posteriorwall. 4. Heterogeneous uterine echotexture with increased echogenic bands posteriorly, as can be seen with adenomyosis. The impression above was relayed to Joellen Roman DO by Dr. Raji Evans via [email or web address] with acknowledgement received on 10/23/2023 at 7:07 PM. I have personally reviewed the images and I agree with this report. WSN: [id number] Ordering Physician: Joellen Roman Dictated By: Sincere Gill MD Dictated Date/Time: 10/23/23 7:07 pm Reviewed By: Raji Evans MD Signed By: Raji Evans MD Signed Date/Time: 10/23/23 7:12 pm Transcribed By: JERMAINE Transcribed Date/Time: 10/23/23 7:07 pm * Exam Date Time Procedure Performing Provider Status 10/23/23 6:27 PM US Pelvic Doppler Comp Umu Doss (Verified) Notes: (US Pelvic Doppler Comp) Reason For Exam: Pelvic Pain;Other: RESULT: US Pelvic Doppler Comp US Pelvic Transabdominal, US Pelvic Doppler Comp, US Pelvic Transvaginal Reason: Pelvic pain. Constipation; Pelvic Pain; Clinical Question(s): TOA; COMPARISON: None TECHNIQUE: Transabdominal and transvaginal pelvic ultrasound with grayscale, color Doppler, and spectral Doppler analysis. FINDINGS: UTERUS: Size: 9.6 x 5.1 x 6.3 cm, volume 160.5 cc. Endometrial thickness: 0.8 cm. Morphology: Normal configuration. Uterus demonstrates heterogeneous echotexture with bands of increased echogenicity, which are more pronounced posteriorly. Predominantly intramural leiomyoma with submucosal extension measuring up to 3.2 x 2.7 x 2.4 cm in the posterior uterine wall. Subcentimeter nabothian cysts in the cervix. RIGHT OVARY: Size: 2.1 x 3.1 x 1.8 cm, volume 6.0 cc. Morphology: Normal echotexture. No pathologic cysts or mass. Normal arterial and venous waveforms. LEFT OVARY: Not definitively visualized. ADNEXA: Complex heterogeneous fluid collection with internal debris measuring up to 7.9 x 2.2 x 4.3 cm in the cul-de-sac. Minimally complex right adnexal fluid collection with internal debris and possible septation measuring up to 3.5 x 1.7 x 3.4 cm. IMPRESSION: 1. The left ovary was not definitively visualized. Normal right ovary. 2. Minimally complex right adnexal fluid collection. An additional complex collection with internaldebris seen in the cul-de-sac. Etiology for fluid collections could not be identified sonographically. Please consider follow-up with CT. 3. Intramural leiomyoma with submucosal extension measuring up to 3.4 cm maximally in the posteriorwall. 4. Heterogeneous uterine echotexture with increased echogenic bands posteriorly, as can be seen with adenomyosis. The impression above was relayed to Joellen Roman DO by Dr. Raji Evans via [employer] with acknowledgement received on 10/23/2023 at 7:07 PM. I have personally reviewed the images and I agree with this report. WSN: [id number] Ordering Physician: Joellen Roman Dictated By: Sincere Gill MD Dictated Date/Time: 10/23/23 7:07 pm Reviewed By: Raji Evans MD Signed By: Raji Evans MD Signed Date/Time: 10/23/23 7:12 pm Transcribed By: JERMAINE Transcribed Date/Time: 10/23/23 7:07 pm * Exam Date Time Procedure Performing Provider Status 10/23/23 6:27 PM US Pelvic Transabdominal Oneal Doss; Auth (Verified) Notes: (US Pelvic Transabdominal) Reason For Exam: Pelvic Pain;Other: RESULT: US Pelvic Transabdominal US Pelvic Transabdominal, US Pelvic Doppler Comp, US Pelvic Transvaginal Reason: Pelvic pain. Constipation; Pelvic Pain; Clinical Question(s): TOA; COMPARISON: None TECHNIQUE: Transabdominal and transvaginal pelvic ultrasound with grayscale, color Doppler, and spectral Doppler analysis. FINDINGS: UTERUS: Size: 9.6 x 5.1 x 6.3 cm, volume 160.5 cc. Endometrial thickness: 0.8 cm. Morphology: Normal configuration. Uterus demonstrates heterogeneous echotexture with bands of increased echogenicity, which are more pronounced posteriorly. Predominantly intramural leiomyoma with submucosal extension measuring up to 3.2 x 2.7 x 2.4 cm in the posterior uterine wall. Subcentimeter nabothian cysts in the cervix. RIGHT OVARY: Size: 2.1 x 3.1 x 1.8 cm, volume 6.0 cc. Morphology: Normal echotexture. No pathologic cysts or mass. Normal arterial and venous waveforms. LEFT OVARY: Not definitively visualized. ADNEXA: Complex heterogeneous fluid collection with internal debris measuring up to 7.9 x 2.2 x 4.3 cm in the cul-de-sac. Minimally complex right adnexal fluid collection with internal debris and possible septation measuring up to 3.5 x 1.7 x 3.4 cm. IMPRESSION: 1. The left ovary was not definitively visualized. Normal right ovary. 2. Minimally complex right adnexal fluid collection. An additional complex collection with internaldebris seen in the cul-de-sac. Etiology for fluid collections could not be identified sonographically. Please consider follow-up with CT. 3. Intramural leiomyoma with submucosal extension measuring up to 3.4 cm maximally in the posteriorwall. 4. Heterogeneous uterine echotexture with increased echogenic bands posteriorly, as can be seen with adenomyosis. The impression above was relayed to Joellen Roman DO by Dr. Raji Evans via [email or web address] with acknowledgement received on 10/23/2023 at 7:07 PM. I have personally reviewed the images and I agree with this report. WSN: [id number] Ordering Physician: Joellen Roman Dictated By: Sincere Gill MD Dictated Date/Time: 10/23/23 7:07 pm Reviewed By: Raji Evans MD Signed By: Raji Evans MD Signed Date/Time: 10/23/23 7:12 pm Transcribed By: JERMAINE Transcribed Date/Time: 10/23/23 7:07 pm * Exam Date Time Procedure Performing Provider Status 10/23/23 4:56 PM Abdomen AP [place] , [place]; Auth (Ve rified) Notes: (Abdomen AP) Reason For Exam: Pain RESULT: XR Abdomen AP XR Abdomen AP 1 view INDICATION/CLINICAL QUESTION: Hx of Present Illness: Pt BIBA cc abd pain. Pt states that she has not had a BM in 1 week.; Reason: Pain; Clinical Question(s): Obstruction; Special Instructions: Flat COMPARISON: None TECHNIQUE: Supine AP view of abdomen. FINDINGS: Nonspecific nonobstructive bowel gas pattern. No evidence of pneumoperitoneum. No organomegaly, masses or calcifications. No acute bone findings. Vascular phleboliths are noted in the pelvis. Limited visualized lung bases are clear. IMPRESSION: Nonspecific nonobstructive bowel gas pattern. No free air. No significant constipation is visualized. WSN: [id number] Ordering Physician: Joellen Roman Dictated By: Tylor Guillen MD Dictated Date/Time: 10/23/23 5:09 pm Reviewed By: Tylor Guillen MD Signed By: Tylor Guillen MD Signed Date/Time: 10/23/23 5:09 pm Transcribed By: JERMAINE Transcribed Date/Time: 10/23/23 5:08 pm Vital Signs Most recent to oldest [Reference Range]: 1 2 Oxygen Saturation [94-100 %] 100 % (10/23/23 10:27 PM) 99 % (10/23/23 2:07 PM) Pulse Rate [55-90 bpm] 77 bpm (10/23/23 10:27 PM) 65 bpm (10/23/23 2:07 PM) Blood Pressure [90-138/55-84 mm Hg] 127/ 87mm Hg (10/23/23 10:27 PM) 131/91mm Hg (10/23/23 2:07 PM) Respiratory Rate [16-30 br/min] 20 br/mi n (10/23/23 10:27 PM) 16 br/min (10/23/23 2:07 PM) Temperature [96.8-100.4 DegF] 98.2 DegF (10/23/23 2:07 PM) Mode of Delivery (Oxygen) Room air (10/23/23 10:27 PM) Temperature Route Oral (10/23/23 2:07 PM) Note * Ja POP, Derek: PERFORM Event Display: Patient Education Leaflets Authored Date: [id number] Uterine Fibroids ?? [id number] Uterine Fibroids Fibroids??are??lumps (growths) of muscle tissue.??They can form in the wall of the uterus (womb). Fibroids are very common. They are almost always not cancer (benign).??It's not known what causes fibroids. But they may run in families. Also, changes in female hormones may cause them to grow over time. After menopause, fibroids may stop growing or shrink. Fibroids may or may not cause symptoms. This depends on many factors, such as their size, the number, and where the fibroids are. If symptoms do occur, they can include: ??? Heavy bleeding. In severe cases, this may lead to low red blood count (anemia). ??? Painful periods ??? Feeling of fullness, swelling, pressure, or pain in the lower belly (abdomen) or pelvic region ??? Low back pain ??? Frequent urination ??? Constipation ??? Pain during sex ??? Problems getting or problems during If fibroids are suspected, your healthcare provider will do an assessment to help understand the extent of the problem. This can include a health history, exam, and tests. Based on the results, treatment can then be planned, if needed. Until more details are known about your problem, you may be given guidelines similar to the home care instructions below. Home care ??? To help control pain, [id number] pain medicine may be advised.??Take these onlyas directed by your provider. ??? If you have heavy or painful periods, keep a log of your menstrual cycle. Show the log to your provider. The information may help them determine if your symptoms arefrom fibroids or another cause. ??? Make certain lifestyle changes. This may include losing excess weight, being more active, or eating less red meat. These changes may help lower the risk of fibroids in some people. They may also help improve overall health. ?? Follow-up care Follow up with your healthcare provider as advised.??If testing was done, you???ll be told the results when they are ready. Call your provider if you have not heard anything and it is several days after the procedure or testing was done. Treatment options for fibroids may include medicines or procedures to help shrink or keep fibroids from growing.??In severe cases, surgery may be needed to remove fibroids or to remove the uterus. If you have fibroids but no symptoms, you may not need treatmentat all. But your provider may advise regular follow-up to check fibroid size and growth. ?? When to seek medical advice Call your healthcare provider right away if any of these occur: ??? Heavy bleeding or painful periods that continue or??don???t get better with treatment ??? Signs of anemia such as extreme fatigue, pale skin, shortness of breath with little exertion, or rapid heartbeat ??? Weakness, dizziness, or fainting ??? Severe pain in the pelvic or belly region ??? Swollen or enlarged belly ?? Last Reviewed Date: 2022 ?? [id number] [employer]. All rights reserved. This information is not intended as a substitute for professional medical care. Always follow your healthcare professional's instructions. ?? Patient Care team information Care Team Personnel Name: Al Alvarez MD Position: Reference Physician Member Role: PCP Address: Address: [address] [place] [address] [address] [place] [address]- Care Team Related Persons Name: HARPREETRODRIGO Address: home [address] [place] [address]
[2023-11-05 19:58] VITALS: BP 132/68; PULSE 60; RESP 16; TEMP 36.5; O2SAT 100
[2023-11-05] MEDS: traMADoL HCL 50 MG TABLET PO (21:43)
[2023-11-05] MEDS: Ibuprofen 600 MG TABLET PO (21:43)
== END 2023-11-05 21:41 | disposition home or self-care (01) ==
PROVIDERS: Nurse Practitioner Family; Emergency Provider Internal Medicine; PCP Internal Medicine
DX: D25.9 Leiomyoma of uterus, unspecified (principal); R10.2 Pelvic and perineal pain; F17.200 Nicotine dependence, unspecified, uncomplicated; Z79.899 Other long term (current) drug therapy
CPT/HCPCS: 36415; 80053; 81001; 81025; 85025; 99283; 99284

== ENCOUNTER 2023-11-24 15:10 | Outpatient (AMB) | payer OTHER, SELFPAY ==
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
[2023-11-24 15:20] VITALS: BP 128/74; BMI 31.4
== END 2023-11-24 16:19 | disposition home or self-care (01) ==
LOC: HO.HWSM 15:10
PROVIDERS: PCP Internal Medicine; Visit Provider Advanced Practice Midwife
DX: D25.9 Leiomyoma of uterus, unspecified (principal); N80.03 Adenomyosis of the uterus
CPT/HCPCS: 99203

== ENCOUNTER → 2023-11-24 15:10 | Outpatient (BNVA) | payer OTHER, SELFPAY | PROVIDERS: PCP Internal Medicine; Visit Provider Advanced Practice Midwife | DX: D25.9 Leiomyoma of uterus, unspecified (principal); N80.03 Adenomyosis of the uterus | CPT/HCPCS: 99202 ==

== ENCOUNTER 2024-03-21 15:51 | Outpatient (AMB) | payer OTHER, SELFPAY ==
[2024-03-21 15:52] VITALS: BP 126/72; PULSE 76; O2SAT 98
--- NOTE | 2024-03-21 15:52 | A.OFFPC_ITS ---
Vital Signs 03/21/24 15:52 Height 5 ft 4 in Weight 175 lb BMI 30.0 BP 126/72 Blood Pressure Location Lt brachial Position Sitting Pulse 76 Pulse Source Pulse Oximeter Pulse Oximetry (%) 98 Oxygen Delivery Method Room Air Intake Visit Reasons: Follow up Volunteer Coordinator Required: No Allergies No Known Allergies Allergy (Verified 03/21/24 16:18) Medication List - Last Reconciled 03/21/24 by Al Alvarez MD acetaminophen (Tylenol Extra Strength) 500 mg PO Q6H PRN albuterol sulfate 90 mcg/actuation 2 puffs inhalation Q6H PRN 30 days [Bedside Commode As directed] [Cane As directed] cholecalciferol (vitamin D3) 50 mcg PO DAILY 90 days clonazepam 1 mg PO BID PRN 15 days cyclobenzaprine 5 mg PO Q8H PRN 5 days [Handheld Shower As directed] ibuprofen 600 mg PO Q6H PRN miscellaneous medical supply Shower Chair miscellaneous medical supply Hand Held Shower Head naproxen 500 mg PO BID PRN 10 days propranolol ER 160 mg PO DAILY 90 days quetiapine 50 mg PO BEDTIME 30 days sertraline 50 mg PO BEDTIME [Shower Chair As directed] tramadol 50 mg PO Q6H PRN Tobacco use date assessed: 03/21/24 Dental Screening Dental Screen Date: 03/21/24 Did you have a dental visit in the last 12 months?: No Did you have a dental problem in the last 6 months where you did not have access to dental care?: No Was dental information given to patient?: Patient has dentist HPI Follow up HPI Details Patient comes in today for her follow up visit - she has not been back since 07/24/2023 States that she currently feels okay She denies any headaches or dizziness Denies any chest pains, no SOB No nausea/vomiting, no abdominal pain No change in bowel habits noted States that she is all set with all of her current Rx and just needs Rx for bladder pads faxed over to her insurance company [facility] Medical History (Updated 03/21/24 @ 16:36 by Al Alvarez MD) Lumbar degenerative disc disease Fibroid uterus Overweight (BMI 25.0-29.9) Spontaneous pneumothorax Vitamin D deficiency Current smoker Bipolar depression Primary insomnia Anxiety Asthma Persistent headaches Surgical History History of tubal ligation Family History Father No problems noted. Mother No problems noted. Maternal Grandmother Breast cancer Paternal Aunt Breast cancer Family/Other FH: mental illness Other Mental health problem Social History Household Members: Children Housing: Apartment Do you presently have visiting nurse or other home services: Yes Alcohol intake: never Patient Tobacco Use Status: Current everyday Tobacco user Tobacco use type: Cigarette Cigarette Packs Per Day: 2 e-Cigarette/Vaping Use: Never Used Second Hand Smoke Exposure: Yes Substance Use Type: Crack/Cocaine and Marijuana service: No Current occupational status: disabled Cognitive needs: No Hearing needs: No Vision needs: No Female Reproductive History Menstrual Age of Menarche: 14 Questionnaire PHQ-9 Over the last 2 weeks, how often have you been bothered by any of the following problems? 1. Little interest or pleasure in doing things: several days 2. Feeling down, depressed, or hopeless: several days 3. Trouble falling or staying asleep, or sleeping too much: several days 4. Feeling tired or having little energy: several days 5. Poor appetite or overeating: several days 6. Feeling bad about yourself - or that you are a failure or have let yourself or your family down: several days 7. Trouble concentrating on things, such as reading the newspaper or watching television: several days 8. Moving or speaking so slowly that other people could have noticed. Or the opposite - being so fidgety or restless that you have been moving around a lot more than usual: several days 9. Thoughts that you would be better off or of hurting yourself in some way: not at all Total score: 8 Depression Screening Interpretation: Positive Depression Screening Follow-up: Existing condition and In treatment Depression Screening Done: Yes 04751 - PHQ-9 Billing: Yes Source: Developed by Drs. Micha Hernández, Anna Newman, Oumar Mcmahon and colleagues, with an educational laura from [employer]. Thrive Questionnaire Date Thrive assessed: 03/21/24 I am a: Patient What is your living situation today?: I have a steady place to live Within the past 12 months, did the food you bought not last and you didn't have the money to get more?: Never true Within the past 12 months, did you worry whether your food would run out before you got money to buy more?: Never true Do you have trouble paying for medicines?: No Do you have trouble getting transportation to medical appointments?: No Do you have trouble paying your heating and electricity bill?: No Do you have trouble taking care of your child, family member or friend?: No Do you have trouble with day-to-day activities such as bathing, preparing meals, shopping, managing finances, etc.?: No Are you currently unemployed and looking for a job?: No Are you interested in more education?: No Currently or been in a relationship where the following occur: no concerns reported THRIVE Score: 0 AUDIT C Alcohol Use Questionnaire (AUDIT-C) 1. How often do you have a drink containing alcohol?: Never 3. How often do you have six or more drinks on one occasion?: Never Total Score: 0 Score Reviewed/Action Taken: Yes BETZAIDA-7 AMB Questionnaire BETZAIDA-7 Date BETZAIDA - 7 assessed: 03/21/24 Feeling nervous, anxious, or on edge: 1 = Several days Not being able to stop or control worryin = Several days Worrying too much about different things: 1 = Several days Trouble relaxin = Not at all Being so restless that it is hard to sit still: 0 = Not at all Becoming easily annoyed or irritable: 0 = Not at all Feeling afraid as if something awful might happen: 0 = Not at all Total BETZAIDA-7 score (0-4 normal; 5-9 mild; 10-14 moderate; 15-21 severe): 3 Source: Developed by Drs. Micha Hernández, Anna Newman, Oumar Mcmahon and colleagues, with an educational laura from [employer]. BETZAIDA-7 Assessment Billing BETZAIDA-7 Assessment Tool: BETZAIDA-7 Assessment 51486 Review of Systems Const Denies chills, Denies fatigue, Denies fever(s) and Denies headache(s) ENT Denies dysphagia, Denies dizziness, Denies otalgia, Denies headache(s), Denies neck pain, Denies odynophagia and Denies sore throat Card Denies chest pain, Denies palpitations and Denies dyspnea Resp Denies cough and Denies dyspnea GI Denies abdominal pain, Denies constipation, Denies dysphagia, Denies heartburn, Denies diarrhea, Denies nausea, Denies odynophagia and Denies vomiting Denies difficulty voiding, Denies nocturia, Denies dysuria, Reports urinary incontinence (on and off) and Denies urinary urgency Musc Reports back pain (on and off over the lower back) and Denies neck pain Skin/Breast Denies rash Neuro Denies dizziness and Denies headache(s) Endo Denies fatigue and Denies palpitations Physical exam (Primary Care) Vital Signs: Last Vital Signs Pulse 76 03/21/24 15:52 BP 126/72 03/21/24 15:52 Pulse Ox 98 03/21/24 15:52 Oxygen Delivery Method Room Air 03/21/24 15:52 BMI result Body Mass Index 30.0 Tobacco/Smoking Status: Tobacco use Status Tobacco use date assessed 03/21/24 03/21/24 15:53 Patient Tobacco Use Status Current everyday Tobacco 03/21/24 15:53 Tobacco use type Cigarette 03/21/24 15:53 e-Cigarette/Vaping Use Never Used 03/21/24 15:53 PHQ-9: PHQ-9 Score PHQ-9: Total score 8 03/21/24 16:00 Depression Screening Interpretation: Positive Depression Screening Follow-up: Existing condition and In treatment Thrive Assessment: Date of Thrive Assessment Date Thrive assessed 01/23/23 03/21/24 15:53 Currently or been in a relationship where the following occur: no concerns reported Const General: no acute distress and alert HENMT Ears: TM's normal bilaterally and EAC's normal Throat: Yes posterior oropharynx normal and Yes tonsils normal (no TP congestion) Neck Neck: Yes no lymphadenopathy and Yes supple Thyroid: Thyroid normal Resp Auscultation: clear to auscultation bilaterally, no rales and no wheezes Cardio Rate: regular rate Rhythm: regular rhythm Heart sounds: no murmurs GI Palpation (GI): Soft to palpation and nontender Auscultation: normal bowel sounds General: Yes no CVA tenderness Back/Spine/Pelvis Back: no CVA tenderness Thoracic/Lumbar Spine: lumbar spinal tenderness Skin Rashes: no rashes Extrem General: Yes no clubbing, cyanosis or edema Assessment and Plan Assessment & Plan (1) Asthma: Code(s): J45.909 - Unspecified asthma, uncomplicated Qualifiers: Asthma severity: mild Asthma persistence: intermittent Asthma complication type: uncomplicated Qualified Code(s): J45.20 - Mild intermittent asthma, uncomplicated Plan: Stable - Continue Albuterol inhaler 2 puffs every 6 hours PRN (2) Spontaneous pneumothorax: Code(s): J93.83 - Other pneumothorax Plan: Resolved - S/P chest tube insertion in December 2021, with no recurrence since Patient is again recommended to refrain from using drugs and smoking to help minimize risks of recurrence of her pneumothorax (3) Headache: Code(s): R51.9 - Headache, unspecified Qualifiers: Headache type: unspecified Headache chronicity pattern: episodic headache Intractability: not intractable Qualified Code(s): R51.9 - Headache, unspecified Plan: MRI of the brain done back in August 2019 came out normal/negative Has been advised that her headaches are likely migraine headaches Continue Tramadol 50 mg TID PRN and Fioricet PRN; continue Propranolol ER 160 mg QD for DAY prophylaxis Follow up with neurology as scheduled (4) Vitamin D deficiency: Code(s): E55.9 - Vitamin D deficiency, unspecified Plan: Continue Vitamin D3 2000 units QD Will recheck her Vitamin D level in 6 months for follow up (5) Lumbar degenerative disc disease: Code(s): M51.36 - Other intervertebral disc degeneration, lumbar region Plan: Reinforced activity and weight-lifting restrictions Lumbar spine x-rays done in December 2022 revealed (+) chronic L5 spondylolysis with grade 1 anterolisthesis of L5 on S1 and [id number] disc degenerative change at L5-S1 Continue Cyclobenzaprine 5 mg TID PRN, Ibuprofen 600 mg Q 6 hours PRN with food and Tramadol 50 mg TID PRN for pain (6) Urinary incontinence: Code(s): R32 - Unspecified urinary incontinence Qualifiers: Urinary Incontinence type: unspecified incontinence Qualified Code(s): R32 - Unspecified urinary incontinence Plan: Per request, will provide her with Rx for Bladder pads - Rx faxed to number provided by patient (7) Primary insomnia: Code(s): F51.01 - Primary insomnia Plan: Sleep hygiene reinforced (8) Anxiety: Code(s): F41.9 - Anxiety disorder, unspecified Plan: Continue Clonazepam 1 mg BID PRN (9) Bipolar depression: Code(s): F31.9 - Bipolar disorder, unspecified Plan: Continue Quetiapine 50 mg Q HS and Sertraline 50 mg QD Follow up with psychiatry as scheduled (10) Current smoker: Code(s): F17.200 - Nicotine dependence, unspecified, uncomplicated Plan: Counseled again on smoking cessation (11) Obesity (BMI 30-39.9): Code(s): E66.9 - Obesity, unspecified Plan: Reinforced diet/exercise as tolerated/lose weight Plan To return in 6 months for her next annual physical examination Patient is again reminded to try getting her labs done BEFORE her appointment so we can discuss the results of her labs as well when she comes in for her appointment Orders: Orders Complete Blood Count Auto Diff 6 Months D64.9 - Anemia, unspecified, Z00.00 - Encounter for general adult medical examination without abnormal findings Comprehensive [place]. Panel Fast 6 Months E78.00 - Pure hypercholesterolemia, unspecified, Z00.00 - Encounter for general adult medical examination without abnormal findings UA CC w/rflx Micro + Cult 6 Months R30.0 - Dysuria, Z00.00 - Encounter for general adult medical examination without abnormal findings Vitamin D 25-OH Total 6 Months E55.9 - Vitamin D deficiency, unspecified, Z00.00 - Encounter for general adult medical examination without abnormal findings Lipid Panel 6 Months E78.00 - Pure hypercholesterolemia, unspecified, Z00.00 - Encounter for general adult medical examination without abnormal findings TSH reflex Free T4 6 Months E78.00 - Pure hypercholesterolemia, unspecified, Z00.00 - Encounter for general adult medical examination without abnormal findings Medications: New incontinence pad, liner, disp (Bladder Control Pad) As directed 2 to 3 times a day (MEDIUM SIZE) 20 ea 12RF R32 - Unspecified urinary incontinence Coding Level of Care Code Est Pt Level 4 (17153) Diagnoses Mild intermittent asthma without complication J45.20 Asthma severity: mild Asthma persistence: intermittent Asthma complication type: uncomplicated Spontaneous pneumothorax J93.83 Nonintractable episodic headache, unspecified headache type R51.9 Headache type: unspecified Headache chronicity pattern: episodic headache Intractability: not intractable Vitamin D deficiency E55.9 Lumbar degenerative disc disease M51.36 Urinary incontinence, unspecified type R32 Urinary Incontinence type: unspecified incontinence Primary insomnia F51.01 Anxiety F41.9 Bipolar depression F31.9 Current smoker F17.200 Obesity (BMI 30-39.9) E66.9 Additional Codes BETZAIDA-7 Assessment Billing - BETZAIDA-7 Assessment Tool: BETZAIDA-7 Assessment 79782 ([id number])
== END 2024-03-21 16:26 | disposition home or self-care (01) ==
PROVIDERS: PCP Internal Medicine; Visit Provider Internal Medicine
DX: J45.20 Mild intermittent asthma, uncomplicated (principal); F31.9 Bipolar disorder, unspecified; J93.83 Other pneumothorax; R51.9 Headache, unspecified; M51.36 Other intervertebral disc degeneration, lumbar region; E55.9 Vitamin D deficiency, unspecified; R32 Unspecified urinary incontinence; F51.01 Primary insomnia; F41.9 Anxiety disorder, unspecified; F17.200 Nicotine dependence, unspecified, uncomplicated; E66.9 Obesity, unspecified
CPT/HCPCS: 99214

== ENCOUNTER 2024-09-23 16:46 | Outpatient (AMB) | payer OTHER, SELFPAY ==
[2024-09-23 16:47] VITALS: BP 110/80; PULSE 76; O2SAT 98; BMI 29.7
--- NOTE | 2024-09-23 16:47 | A.OFFPC_ITS ---
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 Required: No Accompanied by: Self / Same As Patient Allergies No Known Allergies Allergy (Verified 09/23/24 17:18) Medication List - Last Reconciled 09/23/24 by Al Alvarez MD acetaminophen (Tylenol Extra Strength) 500 mg PO Q6H PRN albuterol sulfate 90 mcg/actuation 2 puffs inhalation Q6H PRN 30 days [Bedside Commode As directed] [Cane As directed] cholecalciferol (vitamin D3) 50 mcg PO DAILY 90 days clonazepam 1 mg PO BID PRN 15 days cyclobenzaprine 5 mg PO Q8H PRN 5 days [Handheld Shower As directed] ibuprofen 600 mg PO Q6H PRN incontinence pad, liner, disp (Bladder Control Pad) As directed 2 to 3 times a day (MEDIUM SIZE) miscellaneous medical supply Shower Chair miscellaneous medical supply Hand Held Shower Head naproxen 500 mg PO BID PRN 10 days [PANTILINERS As directed] propranolol ER 160 mg PO DAILY 90 days quetiapine 50 mg PO BEDTIME 30 days sertraline 50 mg PO BEDTIME [Shower Chair As directed] tramadol 50 mg PO Q6H PRN Tobacco use date assessed: 09/23/24 Dental Screening Dental Screen Date: 09/23/24 Did you have a dental visit in the last 12 months?: No Did you have a dental problem in the last 6 months where you did not have access to dental care?: No Was dental information given to patient?: No HPI Annual Exam HPI Details Patient comes in today for her annual physical examination States that she currently feels okay and that she mostly just needs her Rx refills Recalls that she had the flu a couple of weeks ago but her symptoms were mostly mild and have all cleared up by now She denies any headaches or dizziness Denies any chest pains, no SOB - states that her asthma has been well-controlled lately No nausea/vomiting, no abdominal pain No change in bowel habits noted She denies any acute urinary symptoms She was not able to get her previously ordered labs done prior to her appointment today Patient also appears to be going to [facility] in [place] for her annual gynecology exam and pap smear although she was seen here at the [facility] in [place] earlier this year for some adenomyosis and fibroids She vaguely recalls having her annual gynecology exam done at [facility] this year but she is not sure about this She has not had a mammogram done in a few years now and has never had a screening colonoscopy done in the past [facility] Medical History (Updated 09/23/24 @ 22:58 by Al Alvarez MD) Smoker History of pneumothorax Lumbar degenerative disc disease Fibroid uterus Overweight (BMI 25.0-29.9) Spontaneous pneumothorax Vitamin D deficiency Current smoker Bipolar depression Primary insomnia Anxiety Asthma Persistent headaches Surgical History History of tubal ligation Family History Father No problems noted. Mother No problems noted. Maternal Grandmother Breast cancer Paternal Aunt Breast cancer Family/Other FH: mental illness Other Mental health problem Social History Household Members: Children Housing: Apartment Do you presently have visiting nurse or other home services: Yes Alcohol intake: never Patient Tobacco Use Status: Current everyday Tobacco user Tobacco use type: Cigarette Cigarette Packs Per Day: 2 e-Cigarette/Vaping Use: Never Used Second Hand Smoke Exposure: Yes Substance Use Type: Crack/Cocaine and Marijuana service: No Current occupational status: disabled Cognitive needs: No Hearing needs: No Vision needs: No Female Reproductive History Menstrual Age of Menarche: 14 Questionnaire PHQ-9 Over the last 2 weeks, how often have you been bothered by any of the following problems? 1. Little interest or pleasure in doing things: several days 2. Feeling down, depressed, or hopeless: several days 3. Trouble falling or staying asleep, or sleeping too much: several days 4. Feeling tired or having little energy: several days 5. Poor appetite or overeating: several days 6. Feeling bad about yourself - or that you are a failure or have let yourself or your family down: several days 7. Trouble concentrating on things, such as reading the newspaper or watching television: several days 8. Moving or speaking so slowly that other people could have noticed. Or the opposite - being so fidgety or restless that you have been moving around a lot more than usual: several days 9. Thoughts that you would be better off or of hurting yourself in some way: not at all Total score: 8 Depression Screening Interpretation: Positive Depression Screening Follow-up: Existing condition and In treatment Depression Screening Done: Yes 61924 - PHQ-9 Billing: Yes Source: Developed by Drs. Micha Hernández, Anna Newman, Oumar Mcmahon and colleagues, with an educational laura from [employer] Thrive Questionnaire Date Thrive assessed: 09/23/24 I am a: Patient What is your living situation today?: I have a steady place to live Within the past 12 months, did the food you bought not last and you didn't have the money to get more?: Never true Within the past 12 months, did you worry whether your food would run out before you got money to buy more?: Never true Do you have trouble paying for medicines?: No Do you have trouble getting transportation to medical appointments?: No Do you have trouble paying your heating and electricity bill?: No Do you have trouble taking care of your child, family member or friend?: No Do you have trouble with day-to-day activities such as bathing, preparing meals, shopping, managing finances, etc.?: No Are you currently unemployed and looking for a job?: No Are you interested in more education?: No Please select the resources that you would like help with: None Currently or been in a relationship where the following occur: No concerns reported THRIVE Score: 0 AUDIT C Alcohol Use Questionnaire (AUDIT-C) 1. How often do you have a drink containing alcohol?: Never 3. How often do you have six or more drinks on one occasion?: Never Total Score: 0 Score Reviewed/Action Taken: Yes BETZAIDA-7 AMB Questionnaire BETZAIDA-7 Date BETZAIDA - 7 assessed: 09/23/24 Feeling nervous, anxious, or on edge: 1 = Several days Not being able to stop or control worryin = Several days Worrying too much about different things: 1 = Several days Trouble relaxin = Not at all Being so restless that it is hard to sit still: 0 = Not at all Becoming easily annoyed or irritable: 0 = Not at all Feeling afraid as if something awful might happen: 0 = Not at all Total BETZAIDA-7 score (0-4 normal; 5-9 mild; 10-14 moderate; 15-21 severe): 3 Source: Developed by Drs. Micha Hernández, Anna Newman, Oumar Mcmahon and colleagues, with an educational laura from [employer] BETZAIDA-7 Assessment Billing BETZAIDA-7 Assessment Tool: BETZAIDA-7 Assessment 18919 Review of Systems Const Denies chills, Denies difficulty sleeping, Denies fatigue, Denies fever(s), Denies headache(s) and Denies malaise Eyes Denies blurry vision, Denies change in vision, Denies irritation and Denies itchy eyes ENT Denies dysphagia, Denies dizziness, Denies otalgia, Denies headache(s), Denies neck pain, Denies odynophagia and Denies sore throat Card Denies chest pain, Denies rapid heart rate, Denies irregular heart rhythm, Denies palpitations and Denies dyspnea Resp Denies chest congestion, Denies cough, Denies dyspnea and Denies wheezing GI Denies abdominal pain, Denies bloating, Denies constipation, Denies dysphagia, Denies heartburn, Denies diarrhea, Denies nausea, Denies odynophagia and Denies vomiting Denies difficulty voiding, Denies nocturia, Denies dysuria, Reports urinary incontinence (on and off) and Denies urinary urgency Musc Reports back pain (on and off over the lower back) and Denies neck pain Skin/Breast Denies breast pain, Denies breast mass, Denies change in pigmentation, Denies lesions, Denies rash and Denies unusual bruising Neuro Denies dizziness, Denies headache(s) and Denies paresthesias Psych Denies anxiety and Denies depression Endo Denies fatigue and Denies palpitations Salazar/Lymph Denies easy bruising Aller/Immun Denies itchy eyes and Denies wheezing Physical exam (Primary Care) Vital Signs: Last Vital Signs Pulse 76 09/23/24 16:47 BP 110/80 09/23/24 16:47 Pulse Ox 98 09/23/24 16:47 Oxygen Delivery Method Room Air 09/23/24 16:47 BMI result Body Mass Index 29.7 Tobacco/Smoking Status: Tobacco use Status Tobacco use date assessed 09/23/24 09/23/24 16:51 Patient Tobacco Use Status Current everyday Tobacco 09/23/24 16:51 Tobacco use type Cigarette 09/23/24 16:51 e-Cigarette/Vaping Use Never Used 09/23/24 16:51 PHQ-9: PHQ-9 Score PHQ-9: Total score 8 09/23/24 17:21 Depression Screening Interpretation: Positive Depression Screening Follow-up: Existing condition and In treatment Thrive Assessment: Date of Thrive Assessment Date Thrive assessed 09/23/24 09/23/24 16:51 Currently or been in a relationship where the following occur: No concerns reported Const General: no acute distress, alert and awake Orientation/consciousness: patient oriented x3 HENMT Head: Yes normocephalic and Yes atraumatic Ears: external ears normal, TM's normal bilaterally and EAC's normal General nose exam: No nasal discharge present Face and sinus: Yes normal facial exam and Yes sinuses nontender Teeth and gingiva: dentition normal Throat: Yes posterior oropharynx normal and Yes tonsils normal (no TP wing estion) Eyes Eyelids: Yes eyelids normal Conjunctivae: conjunctivae normal Pupils: Equal, round and reactive pupils present EOM: EOMs intact bilaterally Neck Neck: Yes no lymphadenopathy and Yes supple Thyroid: Thyroid normal Resp Auscultation: clear to auscultation bilaterally, no rales and no wheezes Cardio Rate: regular rate Rhythm: regular rhythm Heart sounds: no murmurs GI Palpation (GI): Soft to palpation, nontender and No hepatosplenomegaly present Auscultation: normal bowel sounds General: Yes no CVA tenderness Back/Spine/Pelvis Back: no CVA tenderness Thoracic/Lumbar Spine: lumbar spinal tenderness Skin Lesions: no lesions Rashes: no rashes Neuro General: patient oriented x3, moves all extremities, no focal motor deficits and CN's II-XI intact bilaterally Cranial nerves: Yes Equal, round and reactive pupils present Cognition (Neuro): normal cognition Gait exam (Neuro): Normal gait present Extrem General: Yes no clubbing, cyanosis or edema Coding Level of Care Code Est Pt Prev Care 40-64y(48081) Diagnoses Annual physical exam Z00.00 Mild intermittent asthma without complication J45.20 Asthma severity: mild Asthma persistence: intermittent Asthma complication type: uncomplicated History of pneumothorax Z87.09 Nonintractable episodic headache, unspecified headache type R51.9 Headache type: unspecified Headache chronicity pattern: episodic headache Intractability: not intractable Vitamin D deficiency E55.9 Degeneration of intervertebral disc of lumbar region with discogenic back pain M51.360 Disc-related pain type: discogenic back pain only Urinary incontinence, unspecified type R32 Urinary Incontinence type: unspecified incontinence Primary insomnia F51.01 Anxiety F41.9 Bipolar depression F31.9 Smoker F17.200 Overweight (BMI 25.0-29.9) E66.3 Colon cancer screening Z12.11 Encounter for screening mammogram for malignant neoplasm of breast Z12.31 Breast cancer screening modality: mammogram Additional Codes BETZAIDA-7 Assessment Billing - BETZAIDA-7 Assessment Tool: BETZAIDA-7 Assessment 53815 ([id number]) PHQ-9 - 09376 - PHQ-9 Billing: Yes ([id number]) Assessment & Plan Assessment & Plan (1) Annual physical exam: Code(s): Z00.00 - Encounter for general adult medical examination without abnormal findings Category: Medical Plan: She is instructed to get her previously ordered labs done RAMU Patient appears to be going to [facility] in [place] for her annual gynecology exam and pap smear although [facility] [place] [facility] year for some adenomyosis and fibroids She vaguely recalls having her annual gynecology exam done at [facility] this year but she is not sure about this - will have office try to reach out to [facility] for verification on this She has not had a mammogram done in a few years and has never had a screening colonoscopy done in the past (2) Asthma: Code(s): J45.909 - Unspecified asthma, uncomplicated Category: Medical Qualifiers: Asthma severity: mild Asthma persistence: intermittent Asthma complication type: uncomplicated Qualified Code(s): J45.20 - Mild intermittent asthma, uncomplicated Plan: Stable - continue Albuterol inhaler 1 to 2 puffs every 6 hours PRN (3) History of pneumothorax: Comment: spontaneous pneumothorax in December 2021, requiring chest tube insertion Code(s): Z87.09 - Personal history of other diseases of the respiratory system Category: Medical Plan: S/P chest tube insertion in December 2021, with no recurrence since Patient is again advised to refrain from using drugs and to work on quitting smoking to minimize the risks of recurrence of her pneumothorax (4) Headache: Code(s): R51.9 - Headache, unspecified Category: Medical Qualifiers: Headache type: unspecified Headache chronicity pattern: episodic headache Intractability: not intractable Qualified Code(s): R51.9 - Headache, unspecified Plan: MRI of the brain done back in August 2019 came out normal/negative She has been advised that her headaches are likely migraine headaches Continue Tramadol 50 mg TID PRN and Fioricet PRN; continue Propranolol ER 160 mg QD for DAY prophylaxis Follow up with neurology as scheduled (5) Vitamin D deficiency: Code(s): E55.9 - Vitamin D deficiency, unspecified Category: Medical Plan: Continue Vitamin D3 2000 units QD (6) Lumbar degenerative disc disease: Code(s): M51.36 - Other intervertebral disc degeneration, lumbar region Category: Medical Qualifiers: Disc-related pain type: discogenic back pain only Qualified Code(s): M51.360 - Other intervertebral disc degeneration, lumbar region with discogenic back pain only Plan: Reinforced activity and weight-lifting restrictions Lumbar spine x-rays done in December 2022 revealed (+) chronic L5 spondylolysis with grade 1 anterolisthesis of L5 on S1 and [id number] disc degenerative change at L5-S1 Continue Cyclobenzaprine 5 mg TID PRN, Ibuprofen 600 mg Q 6 hours PRN with food and Tramadol 50 mg TID PRN for pain (7) Urinary incontinence: Code(s): R32 - Unspecified urinary incontinence Category: Medical Qualifiers: Urinary Incontinence type: unspecified incontinence Qualified Code(s): R32 - Unspecified urinary incontinence Plan: Patient uses bladder / incontinence pads as needed Have advised her to consider referral to urology for further evaluation and management of her urinary symptoms (8) Primary insomnia: Code(s): F51.01 - Primary insomnia Category: Medical Plan: Sleep hygiene reinforced States that her bedtime dose of Seroquel helps her sleep better at night (9) Anxiety: Code(s): F41.9 - Anxiety disorder, unspecified Category: Medical Plan: Continue Clonazepam 1 mg BID PRN (10) Bipolar depression: Code(s): F31.9 - Bipolar disorder, unspecified Category: Medical Plan: Continue Quetiapine 50 mg Q HS and Sertraline 50 mg QD Follow up with psychiatry as scheduled (11) Smoker: Code(s): F17.200 - Nicotine dependence, unspecified, uncomplicated Category: Social Hx Plan: Patient is counseled again on smoking cessation (12) Overweight (BMI 25.0-29.9): Code(s): E66.3 - Overweight Category: Medical Plan: Reinforced diet/exercise as tolerated/lose weight (13) Colon cancer screening: Code(s): Z12.11 - Encounter for screening for malignant neoplasm of colon Category: Medical Plan: Will refer her to GI for screening colonoscopy (14) Breast cancer screening: Code(s): Z12.39 - Encounter for other screening for malignant neoplasm of breast Category: Medical Qualifiers: Breast cancer screening modality: mammogram Qualified Code(s): Z12.31 - Encounter for screening mammogram for malignant neoplasm of breast Plan: Will send her for her annual mammography as she has not had one done in a few years now Plan Follow up in 3 months Orders: Orders MM tomosynthesis screening BI Today Z12.31 - Encounter for screening mammogram for malignant neoplasm of breast Referrals Gastroenterology Referral Z12.11 - Encounter for screening for malignant n eoplasm of colon Medications: Refilled clonazepam 1 mg PO BID 15 days PRN 30 tabs 1RF Anxiety sertraline Coverage for Dr. Alvarez 50 mg PO BEDTIME 30 tabs 2RF F31.9 - Bipolar disorder, unspecified tramadol 50 mg PO Q6H PRN 20 tabs 0RF pain albuterol sulfate 90 mcg/actuation 2 puffs inhalation Q6H 30 days PRN 8.5 grams 5RF shortness of breath or wheezing J45.20 - Mild intermittent asthma, uncomplicated quetiapine Coverage for Dr. Alvarez 50 mg PO BEDTIME 30 days 30 tabs 1RF F31.9 - Bipolar disorder, unspecified
== END 2024-09-23 17:27 | disposition home or self-care (01) ==
PROVIDERS: PCP Internal Medicine; Visit Provider Internal Medicine
DX: Z00.00 Encounter for general adult medical examination without abnormal findings (principal); J45.20 Mild intermittent asthma, uncomplicated; Z87.09 Personal history of other diseases of the respiratory system; F31.9 Bipolar disorder, unspecified; R51.9 Headache, unspecified; E55.9 Vitamin D deficiency, unspecified; M51.360 Other intervertebral disc degeneration, lumbar region with discogenic back pain only; R32 Unspecified urinary incontinence; F51.01 Primary insomnia; F41.9 Anxiety disorder, unspecified; F17.200 Nicotine dependence, unspecified, uncomplicated; E66.3 Overweight

== ENCOUNTER → 2024-09-23 16:46 | Outpatient (BNVA) | payer OTHER, SELFPAY | PROVIDERS: PCP Internal Medicine; Visit Provider Internal Medicine | DX: Z00.00 Encounter for general adult medical examination without abnormal findings (principal); J45.20 Mild intermittent asthma, uncomplicated; R51.9 Headache, unspecified; E55.9 Vitamin D deficiency, unspecified; Z87.09 Personal history of other diseases of the respiratory system; M51.360 Other intervertebral disc degeneration, lumbar region with discogenic back pain only; R32 Unspecified urinary incontinence; F51.01 Primary insomnia; F41.9 Anxiety disorder, unspecified; F31.9 Bipolar disorder, unspecified; E66.3 Overweight; F17.200 Nicotine dependence, unspecified, uncomplicated; Z71.6 Tobacco abuse counseling | CPT/HCPCS: 96127; 99396 ==

== ENCOUNTER → 2024-11-01 15:15 | Outpatient (BNV) | payer OTHER, SELFPAY | PROVIDERS: PCP Internal Medicine; Visit Provider Internal Medicine | DX: Z12.31 Encounter for screening mammogram for malignant neoplasm of breast (principal) | CPT/HCPCS: 77063; 77067 ==

== ENCOUNTER 2024-11-01 15:38 | Outpatient (REF) | payer OTHER, SELFPAY ==
--- OUTSIDE RECORDS SUMMARY | 2024-11-01 15:40 | XMS_ITS | Clinical Summary ---
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 Name Role Phone Unavailable Primary Care Provider Unavailabl e Immunizations Name Administration Dates Next Due Moderna Covid-19 Vaccine 6+ Bivalent 11/19/2022 Social History Tobacco Use Types Packs/Day Years Used Date Smoking Tobacco: Never Assessed Comments Unknown Sex and Gender Information Value Date Recorded Sex Assigned at Female 07/28/2022 10:16 AM EDT Legal Sex Female 10:16 AM EDT Gender Identity Choose not to disclose 10:16 AM EDT Sexual Orientation Choose not to disclose 2021 10:16 AM EDT Plan of Treatment Health Maintenance Due Date Last Done Comments CT Colonography 1976 Colonoscopy 1976 Colorectal Cancer Screening 1976 Depression Screening 1976 FIT DNA/Cologuard 1976 FIT 1976 FOBT 1976 HIV Screening 1976 SDOH Screening 1976 Sigmoidoscopy 1976 Alcohol/Substance Use Screening 1988 Tobacco Screening 1988 Family Planning (PISQ) 1991 Hepatitis C Screening 1994 Hepatitis B Vaccines (1 of 3 - 19+ 3-dose series) 1995 Pap Smear 1997 Cervical Cancer Screening 2006 HPV/Cotest 2006 Mammogram 2016 COVID-19 Vaccine ( season) 2024 11/19/2022, 10/16/2021, 03/25/2021, Additional history exists Influenza Vaccine (#1) 2024 , 09/16/2019, 09/14/2018 Zoster Vaccines (1 of 2) 2026 DTaP/Tdap/Td Vaccines (2 - Td or Tdap) 11/12/2027 11/12/2017 RSV Patients and Patients Aged 60 years or older (1 - 1-dose 75+ series) 2051 HIB Vaccines Aged Out No longer eligi ble based on patient's age to complete this topic HPV Vaccines Aged Out No longer eligi ble based on patient's age to complete this topic Hepatitis A Vaccines Aged Out No long er eligible based on patient's age to complete this topic IPV Vaccines Aged Out No longer eligi ble based on patient's age to complete this topic Meningococcal Vaccine Aged Out No andriy marcela eligible based on patient's age to complete this topic Pneumococcal Vaccine: Pediatrics (0 to 5 Years) and At-Risk Patients (6 to 49) Years) Aged Out No longer eligible based on patient's age to complete this topic RSV under 20 months Aged Out No longe r eligible based on patient's age to complete this topic Rotavirus Vaccines Aged Out No longer eligible based on patient's age to complete this topic Insurance [facility] STANDARD [facility] CARE
[2024-11-01 15:57] LABS: MANUAL DIFF FLAG NO
[2024-11-01 16:11] LABS: Basophils Percent Auto 0.3 % (0-2); Eosinophils Absolute Auto 0.1 X10*3/uL (0.0-0.4); Eosinophils Percent Auto 2.3 % (0-4); Hematocrit 39.9 % (37.0-47.0); Hemoglobin 12.7 g/dl (12.0-16.0); Imm Gran Abs Auto 0.01 X10*3/uL (0.00-0.03); Imm Gran Pct Auto 0.2 % (0.0-0.4); Lymphocytes Absolute Auto 2.3 X10*3/uL (1.2-4.9); Lymphocytes Percent Auto 39.5 % (20-40); Mean Corpuscular HGB Conc 31.8 g/dl (31.0-35.0); Mean Corpuscular Hemoglobin 26.7 pg (27.0-33.0); Mean Corpuscular Volume 83.8 fL (80.0-98.0); Mean Platelet Volume 9.2 fL (9.4-12.3); Monocytes Absolute Auto 0.5 X10*3/uL (0.1-1.2); Neutrophils Absolute Auto 2.9 x10*3/uL (2.0-8.3); Neutrophils Percent Auto 49.7 % (45-73); Platelet Count 345 X10*3/uL (160-400); Red Blood Count 4.76 X10*6/uL (4.20-5.50); White Blood Count 5.8 X10*3/uL (4.8-10.8)
[2024-11-01 16:52] LABS: Alanine Aminotransferase 18 U/L (0-31); Albumin Level 4.5 g/dL (3.5-5.0); Alkaline Phosphatase 36 U/L (39-117); Anion Gap 16 (12-20); Aspartate Amino Transferase 21 U/L (5-31); Bilirubin Total 0.2 mg/dL (0.0-1.0); Blood Urea Nitrogen 13 mg/dL (9-16); Calcium 9.5 mg/dL (8.4-10.2); Carbon Dioxide 25 mmol/L (22-29); Chloride 107 mmol/L (96-108); Cholesterol 216 mg/dL (<200); Estimated Glomerular Filt Rate > 60; Glucose Fasting 85 mg/dL (60-99); HDL Cholesterol 47 mg/dL (>40); LDL Cholesterol Calculated 149 mg/dL (<100); Potassium 4.8 mmol/L (3.3-5.1); Sodium 143 mmol/L (135-145); Total Protein 7.9 g/dL (6.5-8.0); Triglycerides 100 mg/dL (<150)
[2024-11-01 17:00] LABS: Appearance Urine Clear; Color Urine Yellow; Glucose Urine UA Negative (Negative); Leukocyte Esterase Urine Negative (Negative); Nitrite Urine Negative (Negative); UMIC TRIGGER UACC YES; Urine Blood Large (3+) (Negative); Urine Ketones Negative (Negative); Urine Protein Negative (Neg-Trace)
[2024-11-01 17:11] LABS: TSH reflex Free T4 0.74 uIU/mL (0.32-4.0); Vitamin D 25-OH Total 23.9 ng/mL (>30)
[2024-11-01 18:18] LABS: Bacteria Urine None Seen (None Seen); Hyaline Casts Urine 0-2 /LPF (0-2); RBC Urine 0-2 /HPF (0-2); Squamous Epithelial Cell Urine 0-2 /HPF (0-2); WBC Urine 0-5 /HPF (0-5)
== END 2024-11-01 15:39 | disposition home or self-care (01) ==
LOC: HO.LAB 15:38
PROVIDERS: PCP Internal Medicine; Visit Provider Internal Medicine
DX: Z00.00 Encounter for general adult medical examination without abnormal findings (principal); E78.00 Pure hypercholesterolemia, unspecified; E55.9 Vitamin D deficiency, unspecified; D64.9 Anemia, unspecified; Z12.31 Encounter for screening mammogram for malignant neoplasm of breast
CPT/HCPCS: 36415; 77063; 77067; 80053; 80061; 81001; 81003; 82306; 84443; 85025

== ENCOUNTER 2024-12-20 16:39 | Outpatient (AMB) | payer OTHER, SELFPAY ==
[2024-12-20 17:01] VITALS: BP 118/74; PULSE 85; TEMP 36.3; O2SAT 96; BMI 30.3
--- NOTE | 2024-12-20 17:01 | A.OFFPC_ITS ---
Vital Signs 12/20/24 17:01 Height 5 ft 4 in Weight 176 lb 9.6 oz BMI 30.3 BP 118/74 Blood Pressure Location Lt brachial Position Sitting Pulse 85 Pulse Source Pulse Oximeter Temp 97.3 F Temp Source Temporal Artery Scan Pulse Oximetry (%) 96 Oxygen Delivery Method Room Air Intake Visit Reasons: 3 month f/u Electrician Powerhouse Required: Yes Electrician Powerhouse Language: Gizzard Puller Name: Doreen [id number] Information Interpreted: non-clinical & clinical Road Grader Operator: Not Required per policy Accompanied by: Self / Same As Patient Allergies No Known Allergies Allergy (Verified 12/20/24 17:37) Medication List - Last Reconciled 12/20/24 by Al Alvarez MD acetaminophen (Tylenol Extra Strength) 500 mg PO Q6H PRN albuterol sulfate 90 mcg/actuation 2 puffs inhalation Q6H PRN 30 days [Bedside Commode As directed] buspirone 5 mg PO TID [Cane As directed] cholecalciferol (vitamin D3) 50 mcg PO DAILY 90 days clonazepam 1 mg PO BID PRN 15 days clonidine HCl mg PO cyclobenzaprine 5 mg PO Q8H PRN 10 days [Handheld Shower As directed] ibuprofen 600 mg PO Q6H PRN incontinence pad, liner, disp (Bladder Control Pad) As directed 2 to 3 times a day (MEDIUM SIZE) miscellaneous medical supply Shower Chair miscellaneous medical supply Hand Held Shower Head [PANTILINERS As directed] propranolol ER 160 mg PO DAILY 90 days quetiapine 50 mg PO BEDTIME 30 days sertraline 100 mg PO DAILY sertraline 50 mg PO BEDTIME [Shower Chair As directed] tramadol 50 mg PO Q6H PRN trazodone 50 mg PO BEDTIME ziprasidone HCl 40 mg PO BID Tobacco use date assessed: 12/20/24 Dental Screening Dental Screen Date: 12/20/24 Did you have a dental visit in the last 12 months?: Yes Did you have a dental problem in the last 6 months where you did not have access to dental care?: No Was dental information given to patient?: Patient has dentist HPI 3 month f/u HPI Details Patient comes in today for her follow up visit for her asthma, mood disorder, urinary incontinence and other medical issues Today's visit is done through optics engineer services via I-pad/tablet indicated as above Patient states that she has been feeling very depressed since her 26 y/o son lm quigley away suddenly a few weeks ago States that her current medications are helping her cope with her current depression/grief; she is also following up with her therapist regularly, and she will need several of her Rx refilled today She denies any headaches or dizziness Denies any chest pains, no increased SOB - states that her asthma has been well- controlled on her current inhalers lately No nausea/vomiting, no abdominal pain but states that she has been feeling bloated often lately due to her increasing constipation and would like to get something to help her with this Adds that she has been experiencing gradually progressing worsening of vision lately and would like to get a referral to see ophthalmology for further evaluation States that she tried to get into see Dr. Contreras upstairs but was told that they are booking out up to a year from now for appointments and states that she can not afford to wait for a year to get her vision checked She has been referred for screening colonoscopy and is scheduled to be seen by GI for her precolonoscopy visit on 03/20/2025 She would also like to get a referral to go back to the [facility] here at [facility] for her yearly gynecology exam and Pap smear She had her follow up labs done last month - to discuss her results [facility] Medical History (Updated 12/21/24 @ 02:17 by Al Alvarez MD) Pure hypercholesterolemia Smoker History of pneumothorax Lumbar degenerative disc disease Fibroid uterus Overweight (BMI 25.0-29.9) Spontaneous pneumothorax Vitamin D deficiency Current smoker Bipolar depression Primary insomnia Anxiety Asthma Persistent headaches Surgical History History of tubal ligation Family History Father No problems noted. Mother No problems noted. Maternal Grandmother Breast cancer Paternal Aunt Breast cancer Family/Other FH: mental illness Other Mental health problem Social History Household Members: Children Housing: Apartment Do you presently have visiting nurse or other home services: Yes Alcohol intake: never Patient Tobacco Use Status: Current everyday Tobacco user Tobacco use type: Cigarette Cigarette Packs Per Day: 0.25 e-Cigarette/Vaping Use: Never Used Second Hand Smoke Exposure: Yes Substance Use Type: Crack/Cocaine and Marijuana service: No Current occupational status: disabled Cognitive needs: No Hearing needs: No Vision needs: No Female Reproductive History Menstrual Age of Menarche: 14 Questionnaire PHQ-9 Over the last 2 weeks, how often have you been bothered by any of the following problems? 1. Little interest or pleasure in doing things: several days 2. Feeling down, depressed, or hopeless: several days 3. Trouble falling or staying asleep, or sleeping too much: several days 4. Feeling tired or having little energy: several days 5. Poor appetite or overeating: several days 6. Feeling bad about yourself - or that you are a failure or have let yourself or your family down: several days 7. Trouble concentrating on things, such as reading the newspaper or watching television: several days 8. Moving or speaking so slowly that other people could have noticed. Or the opposite - being so fidgety or restless that you have been moving around a lot more than usual: several days 9. Thoughts that you would be better off or of hurting yourself in some way: not at all Total score: 8 Depression Screening Interpretation: Positive Depression Screening Follow-up: Existing condition and In treatment Depression Screening Done: Yes 32878 - PHQ-9 Billing: Yes Source: Developed by Drs. Micha Hernández, Anna Newman, Oumar Mcmahon and colleagues, with an educational laura from [employer]. Thrive Questionnaire Date Thrive assessed: 12/20/24 I am a: Patient What is your living situation today?: I have a steady place to live Within the past 12 months, did the food you bought not last and you didn't have the money to get more?: Never true Within the past 12 months, did you worry whether your food would run out before you got money to buy more?: Never true Do you have trouble paying for medicines?: No Do you have trouble getting transportation to medical appointments?: No Do you have trouble paying your heating and electricity bill?: No Do you have trouble taking care of your child, family member or friend?: No Do you have trouble with day-to-day activities such as bathing, preparing meals, shopping, managing finances, etc.?: No Are you currently unemployed and looking for a job?: No Are you interested in more education?: No Please select the resources that you would like help with: None Currently or been in a relationship where the following occur: No concerns reported THRIVE Score: 0 AUDIT C Alcohol Use Questionnaire (AUDIT-C) 1. How often do you have a drink containing alcohol?: Never 3. How often do you have six or more drinks on one occasion?: Never Total Score: 0 Score Reviewed/Action Taken: Yes BETZAIDA-7 AMB Questionnaire BETZAIDA-7 Date BETZAIDA - 7 assessed: 12/20/24 Feeling nervous, anxious, or on edge: 0 = Not at all Not being able to stop or control worryin = Not at all Worrying too much about different things: 0 = Not at all Trouble relaxin = Not at all Being so restless that it is hard to sit still: 0 = Not at all Becoming easily annoyed or irritable: 0 = Not at all Feeling afraid as if something awful might happen: 0 = Not at all Total BETZAIDA-7 score (0-4 normal; 5-9 mild; 10-14 moderate; 15-21 severe): 0 Source: Developed by Drs. Micha Hernández, Anna Newman, Oumar Mcmahon and colleagues, with an educational laura from [employer]. BETZAIDA-7 Assessment Billing BETZAIDA-7 Assessment Tool: BETZAIDA-7 Assessment 65415 Review of Systems Const Denies chills, Reports difficulty sleeping, Denies fatigue, Denies fever(s) and Denies headache(s) Eyes Reports blurry vision (in both eyes) ENT Denies dysphagia, Denies dizziness, Denies otalgia, Denies headache(s), Denies neck pain, Denies odynophagia and Denies sore throat Card Denies chest pain, Denies irregular heart rhythm, Denies palpitations and Denies dyspnea Resp Denies chest congestion, Denies cough and Denies dyspnea GI Denies abdominal pain, Reports bloating, Reports constipation (increasing lately), Denies dysphagia, Denies heartburn, Denies diarrhea, Denies nausea, Denies odynophagia and Denies vomiting Denies difficulty voiding, Denies nocturia, Denies dysuria, Reports urinary incontinence (on and off) and Denies urinary urgency Musc Reports back pain (on and off over the lower back) and Denies neck pain Skin/Breast Denies rash Neuro Denies dizziness, Denies headache(s) and Denies paresthesias Psych Denies anxiety and Reports depression (increased lately) Endo Denies fatigue and Denies palpitations Salazar/Lymph Denies easy bruising Physical exam (Primary Care) Vital Signs: Last Vital Signs Temp 97.3 F 12/20/24 17:01 Pulse 85 12/20/24 17:01 BP 118/74 12/20/24 17:01 Pulse Ox 96 12/20/24 17:01 Oxygen Delivery Method Room Air 12/20/24 17:01 BMI result Body Mass Index 30.3 Tobacco/Smoking Status: Tobacco use Status Tobacco use date assessed 12/20/24 12/20/24 17:19 Patient Tobacco Use Status Current everyday Tobacco 12/20/24 17:19 Tobacco use type Cigarette 12/20/24 17:19 e-Cigarette/Vaping Use Never Used 12/20/24 17:19 PHQ-9: PHQ-9 Score PHQ-9: Total score 8 12/21/24 02:10 Depression Screening Interpretation: Positive Depression Screening Follow-up: Existing condition and In treatment Thrive Assessment: Date of Thrive Assessment Date Thrive assessed 12/20/24 12/20/24 17:19 Currently or been in a relationship where the following occur: No concerns reported Const General: no acute distress and alert HENMT Ears: TM's normal bilaterally and EAC's normal Throat: Yes posterior oropharynx normal and Yes tonsils normal (no TP congestion) Neck Neck: Yes supple and No lymphadenopathy Thyroid: Thyroid normal Resp Auscultation: clear to auscultation bilaterally, no rales and no wheezes Cardio Rate: regular rate Rhythm: regular rhythm Heart sounds: no murmurs GI Palpation (GI): Soft to palpation and nontender Auscultation: normal bowel sounds General: Yes no CVA tenderness Back/Spine/Pelvis Back: no CVA tenderness Thoracic/Lumbar Spine: lumbar spinal tenderness (mild) Skin Rashes: no rashes Extrem General: Yes no clubbing, cyanosis or edema Results Reviewed Results Reviewed: Laboratory Tests 11/01/24 11/01/24 15:50 15:55 WBC 5.8 Hgb 12.7 Hct 39.9 Plt Count 345 Sodium 143 Potassium 4.8 Creatinine 0.74 Estimated GFR > 60 Fasting Glucose 85 Calcium 9.5 AST 21 ALT 18 Triglycerides 100 Cholesterol 216 H LDL Cholesterol, Calc 149 H HDL Cholesterol 47 25-OH Vitamin D Total 23.9 L TSH 0.74 Ur Specific [place] 1.020 Urine Protein Negative Urine Glucose (UA) Negative Urine Blood Large (3+) H Urine Nitrite Negative Ur Leukocyte Esterase Negative Coding Level of Care Code Est Pt Level 5 (33440) Diagnoses Pure hypercholesterolemia E78.00 Mild intermittent asthma without complication J45.20 Asthma severity: mild Asthma persistence: intermittent Asthma complication type: uncomplicated History of pneumothorax Z87.09 Nonintractable episodic headache, unspecified headache type R51.9 Headache type: unspecified Headache chronicity pattern: episodic headache Intractability: not intractable Visual impairment H54.7 Vitamin D deficiency E55.9 Degeneration of intervertebral disc of lumbar region with discogenic back pain M51.360 Disc-related pain type: discogenic back pain only Urinary incontinence, unspecified type R32 Urinary Incontinence type: unspecified incontinence Primary insomnia F51.01 Anxiety F41.9 Bipolar depression F31.9 Smoker F17.200 Obesity (BMI 30-39.9) E66.9 Cervical cancer screening Z12.4 Additional Codes BETZAIDA-7 Assessment Billing - BETZAIDA-7 Assessment Tool: BETZAIDA-7 Assessment 54080 ([id number]) PHQ-9 - 69270 - PHQ-9 Billing: Yes ([id number]) Time Spent (min) 45 Assessment & Plan Assessment & Plan (1) Pure hypercholesterolemia: Code(s): E78.00 - Pure hypercholesterolemia, unspecified Category: Medical Plan: Results of her labs done last month reviewed and discussed with patient - she is advised that her cholesterol levels have increased significantly from previous and her LDL cholesterol is now high at 149 mg/dl Discussed low cholesterol diet Will have patient recheck her labs and fasting lipids in 4 months for follow up (2) Asthma: Code(s): J45.909 - Unspecified asthma, uncomplicated Category: Medical Qualifiers: Asthma severity: mild Asthma persistence: intermittent Asthma complication type: uncomplicated Qualified Code(s): J45.20 - Mild intermittent asthma, uncomplicated Plan: Controlled Continue Albuterol inhaler 1 to 2 puffs Q 6 hours PRN (3) History of pneumothorax: Comment: spontaneous pneumothorax in December 2021, requiring chest tube insertion Code(s): Z87.09 - Personal history of other diseases of the respiratory system Category: Medical Plan: S/P chest tube insertion in December 2021, with no recurrence since Patient is again advised to refrain from using drugs and to work on quitting smoking to minimize the risks of recurrence of pneumothorax (4) Headache: Code(s): R51.9 - Headache, unspecified Category: Medical Qualifiers: Headache type: unspecified Headache chronicity pattern: episodic heada paxton Intractability: not intractable Qualified Code(s): R51.9 - Headache, unspecified Plan: MRI of the brain done back in August 2019 came out normal/negative She has been advised that her headaches are likely migraine headaches Continue Propranolol ER 160 mg QD for DAY prophylaxis Continue Tramadol 50 mg TID PRN and Fioricet PRN for symptomatic relief Follow up with neurology as scheduled (5) Visual impairment: Code(s): H54.7 - Unspecified visual loss Category: Medical Plan: Per request, will refer her to ophthalmology for further evaluation and management (6) Vitamin D deficiency: Code(s): E55.9 - Vitamin D deficiency, unspecified Category: Medical Plan: Continue Vitamin D3 2000 units QD (7) Lumbar degenerative disc disease: Code(s): M51.36 - Other intervertebral disc degeneration, lumbar region Category: Medical Qualifiers: Disc-related pain type: discogenic back pain only Qualified Code(s): M51.360 - Other intervertebral disc degeneration, lumbar region with discogenic back pain only Plan: Reinforced activity and weight-lifting restrictions Lumbar spine x-rays done in December 2022 revealed (+) chronic L5 spondylolysis with grade 1 anterolisthesis of L5 on S1 and [id number] disc degenerative change at L5-S1 Continue Cyclobenzaprine 5 mg TID PRN, Ibuprofen 600 mg Q 6 hours PRN with food and Tramadol 50 mg TID PRN for pain (8) Urinary incontinence: Code(s): R32 - Unspecified urinary incontinence Category: Medical Qualifiers: Urinary Incontinence type: unspecified incontinence Qualified Code(s): R32 - Unspecified urinary incontinence Plan: Patient uses bladder / incontinence pads as needed Have advised her to consider referral to urology for further evaluation and management of her urinary symptoms (9) Primary insomnia: Code(s): F51.01 - Primary insomnia Category: Medical Plan: Sleep hygiene reinforced States that her bedtime dose of Seroquel helps her sleep better at night (10) Anxiety: Code(s): F41.9 - Anxiety disorder, unspecified Category: Medical Plan: Continue Clonazepam 1 mg BID PRN (11) Bipolar depression: Code(s): F31.9 - Bipolar disorder, unspecified Category: Medical Plan: She reports experiencing increased depression since her 26 y/o son suddenly recently States that her medications are at least helping her cope with her loss Continue Quetiapine 50 mg Q HS and Sertraline 50 mg QD Follow up with psychiatry as scheduled (12) Smoker: Code(s): F17.200 - Nicotine dependence, unspecified, uncomplicated Category: Social Hx Plan: Patient is counseled again on complete smoking cessation (13) Obesity (BMI 30-39.9): Code(s): E66.9 - Obesity, unspecified Category: Medical Plan: Reinforced diet/exercise as tolerated/lose weight - she has gained a few pounds since her last visit (14) Cervical cancer screening: Code(s): Z12.4 - Encounter for screening for malignant neoplasm of cervix Category: Medical Plan: She used to go to the [facility] but was sent over to [facility] a couple of years ago She would like to start coming back here to the [facility] for her yearly gynecology exam and pap smear as she lives locally Will refer her back to the [facility] here at [facility] for her yearly gynecology exam Plan Follow up in 4 months Orders: Orders Comprehensive [place]. Panel Fast 4 Months E78.00 - Pure hypercholesterolemia, unspecified TSH reflex Free T4 4 Months E78.00 - Pure hypercholesterolemia, unspecified Complete Blood Count Auto Diff 4 Months D64.9 - Anemia, unspecified Lipid Panel 4 Months E78.00 - Pure hypercholesterolemia, unspecified UA CC w/rflx Micro + Cult 4 Months R30.0 - Dysuria Vitamin D 25-OH Total 4 Months E55.9 - Vitamin D deficiency, unspecified Referrals Ophthalmology Referral H54.7 - Unspecified visual loss OPENER TENDER Referral Z12.4 - Encounter for screening for malignant neoplasm of cervix Medications: Changed From cyclobenzaprine 5 mg PO Q8H 5 days PRN 14 tabs 0RF pain (scale score 7-10) To cyclobenzaprine 5 mg PO Q8H 10 days PRN 30 tabs 0RF muscle spasm From acetaminophen (Tylenol Extra Strength) 500 mg PO Q6H PRN 14 tabs 0RF fever or pain To acetaminophen (Tylenol Extra Strength) do not take more than 4 tablets in 24 hours 500 mg PO Q6H PRN 120 tabs 1RF fever or pain Refilled cholecalciferol (vitamin D3) 50 mcg PO DAILY 90 days 90 caps 3RF clonazepam 1 mg PO BID 15 days PRN 30 tabs 0RF Anxiety tramadol 50 mg PO Q6H PRN 20 tabs 0RF pain albuterol sulfate 90 mcg/actuation 2 puffs inhalation Q6H 30 days PRN 8.5 grams 5RF shortness of breath or wheezing J45.20 - Mild intermittent asthma, uncomplicated propranolol ER 160 mg PO DAILY 90 days 90 caps 3RF quetiapine Coverage for Dr. Alvarez 50 mg PO BEDTIME 30 days 30 tabs 1RF F31.9 - Bipolar disorder, unspecified sertraline Coverage for Dr. Alvarez 50 mg PO BEDTIME 30 tabs 2RF F31.9 - Bipolar disorder, unspecified
== END 2024-12-20 17:48 | disposition home or self-care (01) ==
LOC: HO.HMCH 16:39
PROVIDERS: PCP Internal Medicine; Visit Provider Internal Medicine
DX: E78.00 Pure hypercholesterolemia, unspecified (principal); J45.20 Mild intermittent asthma, uncomplicated; Z87.09 Personal history of other diseases of the respiratory system; F31.9 Bipolar disorder, unspecified; H54.7 Unspecified visual loss; R51.9 Headache, unspecified; E55.9 Vitamin D deficiency, unspecified; M51.360 Other intervertebral disc degeneration, lumbar region with discogenic back pain only; R32 Unspecified urinary incontinence; F51.01 Primary insomnia; F41.9 Anxiety disorder, unspecified; F17.200 Nicotine dependence, unspecified, uncomplicated

== ENCOUNTER → 2024-12-20 16:39 | Outpatient (BNVA) | payer OTHER, SELFPAY | PROVIDERS: PCP Internal Medicine; Visit Provider Internal Medicine | DX: E78.00 Pure hypercholesterolemia, unspecified (principal); J45.20 Mild intermittent asthma, uncomplicated; R51.9 Headache, unspecified; H54.7 Unspecified visual loss; E55.9 Vitamin D deficiency, unspecified; M51.360 Other intervertebral disc degeneration, lumbar region with discogenic back pain only; R32 Unspecified urinary incontinence; F41.9 Anxiety disorder, unspecified; F51.01 Primary insomnia; F31.9 Bipolar disorder, unspecified; E66.9 Obesity, unspecified; F17.200 Nicotine dependence, unspecified, uncomplicated; Z71.6 Tobacco abuse counseling | CPT/HCPCS: 96127; 99212 ==

== ENCOUNTER 2025-04-24 15:51 | Outpatient (REF) | payer OTHER, SELFPAY ==
[2025-04-24 16:02] LABS: MANUAL DIFF FLAG NO
--- OUTSIDE RECORDS SUMMARY | 2025-04-24 16:03 | XMS_ITS | Clinical Summary ---
Author Organization [employer] Address [address] [place] [address] Care Team Providers Care Duct Cleaner Name Role Phone Unavailable Primary Care Provider Unavailabl e Allergies No known active allergies Medications QUEtiapine (SEROquel) 25 MG tablet Take 1 tablet by mouth if needed in the morning and at bedtime for anxiety. 03/17/2024 Active sertraline (Zoloft) 50 MG tablet Take 50 mg by mouth at bedtime. 10/12/2024 Active traMADol (Ultram) 50 MG tablet Take 50 mg by mouth every 6 (six) hours if needed. Active cholecalciferol VITAMIN D (Vitamin D-3) 50 MCG (2000 UT) capsule Take 1 capsule by mouth Once per day. 11/10/2024 Active albuterol 108 (90 Base) MCG/ACT inhaler 2 puffs. Acti ve Active Problems Problem Noted Date Diagnosed Date Complete edentulism 12/15/2024 Normal oral exam 12/15/2024 Immunizations Immunization Administration Dates Next Due Moderna Covid-19 Vaccine 6+ Bivalent 11/19/2022 Social History Tobacco Use Types Packs/Day Years Used Date Smoking Tobacco: Former Cigarettes Smokeless Tobacco: Former Tobacco Cessation:Counseling Given: Not Answered Alcohol Use Standard Drinks/Week Comments Yes 0 (1 standard drink = 0.6 oz pur e alcohol) Comments Unknown Sex and Gender Information Value Date Recorded Sex Assigned at Female 07/28/2022 10:16 AM EDT Legal Sex Female 10:16 AM EDT Gender Identity Choose not to disclose 10:16 AM EDT Sexual Orientation Choose not to disclose 2021 10:16 AM EDT Last Filed Vital Signs Vital Sign Reading Time Taken Comments Blood Pressure 110/60 12/15/2024 3:09 PM EDT Pulse - - Temperature - - Respiratory Rate - - Oxygen Saturation - - Inhaled Oxygen Concentration - - Weight - - Height - - Body Mass Index - - Plan of Treatment Health Maintenance Due Date Last Done Comments CT Colonography 1976 Colonoscopy 1976 Colorectal Cancer Screening 1976 Dental Prophylaxis 1976 Dental X-Ray: Bitewings 1976 Depression Screening 1976 FIT DNA/Cologuard 1976 FIT 1976 FOBT 1976 HIV Screening 1976 SDOH Screening 1976 Sigmoidoscopy 1976 Disability Screening 1976 Alcohol/Substance Use Screening 1988 Family Planning (PISQ) 1991 Hepatitis C Screening 1994 Hepatitis B Vaccines (1 of 3 - 19+ 3-dose series) 1995 Pap Smear 1997 Cervical Cancer Screening 2006 HPV/Cotest 2006 Mammogram 2016 COVID-19 Vaccine ( season) 2024 11/19/2022, 10/16/2021, 03/25/2021, Additional history exists Influenza Vaccine (#1) 2025 , 09/04/2021, 09/16/2019, Additional history exists Dental Oral Exam 06/18/2025 12/15/2024, 01/03/2021 Tobacco Screening 12/15/2025 12/15/2024 Zoster Vaccines (1 of 2) 2026 DTaP/Tdap/Td Vaccines (2 - Td or Tdap) 11/12/2027 11/12/2017 Dental X-Ray: Full Mouth 12/17/2027 12/15/2024 RSV Patients and Patients Aged 60 years [...] patient's age to complete this topic Meningococcal B Vaccine Aged Out No l onger eligible based on patient's age to complete this topic Meningococcal Vaccine Aged Out No andriy marcela eligible based on patient's age to complete this topic Pneumococcal Vaccine: Pediatrics (0 to 5 Years) and At-Risk Patients (6 to 49) Years Aged Out No longer eligible based on patient's age to complete this topic RSV under 20 months Aged Out No longe r eligible based on patient's age to complete this topic Rotavirus Vaccines Aged Out No longer eligible based on patient's age to complete this topic Procedures Procedure Name Priority Date/Time Associated Diagnosis Comments PANORAMIC RADIOGRAPHIC IMAGE Routine 12/15/2024 3:00 PM EDT PERIODIC ORAL EVALUATION - ESTABLISHED PATIENT Routine 12/15/2024 3:00 PM EDT from Last 3 Months or Most Recently Relevant to Health Maintenance Insurance [facility]
[2025-04-24 16:22] LABS: Hematocrit 37.4 % (37.0-47.0); Hemoglobin 11.9 g/dl (12.0-16.0); Imm Gran Abs Auto 0.01 X10*3/uL (0.00-0.03); Imm Gran Pct Auto 0.2 % (0.0-0.4); Lymphocytes Absolute Auto 2.8 X10*3/uL (1.2-4.9); Mean Corpuscular HGB Conc 31.8 g/dl (31.0-35.0); Mean Corpuscular Hemoglobin 27.0 pg (27.0-33.0); Mean Corpuscular Volume 84.8 fL (80.0-98.0); NRBC Abs Auto 0.000 X10*3/uL (0.0-0.012); NRBC Pct Auto 0.0 /100WBC (0.0-0.2); Platelet Count 275 X10*3/uL (160-400); Red Blood Count 4.41 X10*6/uL (4.20-5.50); White Blood Count 5.8 X10*3/uL (4.8-10.8)
[2025-04-24 16:57] LABS: Alanine Aminotransferase 21 U/L (0-31); Albumin Level 4.2 g/dL (3.5-5.0); Alkaline Phosphatase 43 U/L (39-117); Anion Gap 14 (12-20); Aspartate Amino Transferase 19 U/L (5-31); Blood Urea Nitrogen 9 mg/dL (9-16); Calcium 8.8 mg/dL (8.4-10.2); Carbon Dioxide 25 mmol/L (22-29); Chloride 107 mmol/L (96-108); Cholesterol 202 mg/dL (<200); Estimated Glomerular Filt Rate > 60; HDL Cholesterol 52 mg/dL (>40); Potassium 4.5 mmol/L (3.3-5.1); Sodium 141 mmol/L (135-145); Total Protein 6.6 g/dL (6.5-8.0); Triglycerides 125 mg/dL (<150)
[2025-04-24 17:07] LABS: Appearance Urine Clear; Glucose Urine UA Negative (Negative); PH 5.5 (5.0-9.0); Specific Gravity - Urine 1.020 (1.005-1.025)
== END 2025-04-24 15:52 | disposition home or self-care (01) ==
LOC: HO.LAB 15:51
PROVIDERS: PCP Internal Medicine; Visit Provider Internal Medicine
DX: E78.00 Pure hypercholesterolemia, unspecified (principal); J45.20 Mild intermittent asthma, uncomplicated; R51.9 Headache, unspecified; E55.9 Vitamin D deficiency, unspecified; M51.360 Other intervertebral disc degeneration, lumbar region with discogenic back pain only; K59.00 Constipation, unspecified; R32 Unspecified urinary incontinence; F51.01 Primary insomnia; F41.9 Anxiety disorder, unspecified; F31.9 Bipolar disorder, unspecified; E66.9 Obesity, unspecified; Z68.31 Body mass index [BMI] 31.0-31.9, adult; F17.210 Nicotine dependence, cigarettes, uncomplicated; Z87.09 Personal history of other diseases of the respiratory system; Z79.899 Other long term (current) drug therapy; Z13.31 Encounter for screening for depression; D64.9 Anemia, unspecified; R30.0 Dysuria
CPT/HCPCS: 36415; 80053; 80061; 81003; 82306; 84443; 85025; 96127; 99212

== ENCOUNTER 2025-04-24 17:06 | Outpatient (AMB) | payer OTHER, SELFPAY ==
--- NOTE | 2025-04-24 17:09 | MHC.PC.OV ---
Vital Signs 04/24/25 17:11 Height 5 ft 4 in Weight 181 lb 8 oz BMI 31.2 BP 104/78 Blood Pressure Location Lt brachial Position Sitting Pulse 78 Temp 97.5 F Temp Source Temporal Artery Scan Pulse Oximetry (%) 98 Oxygen Delivery Method Room Air Intake Visit Reasons: 4 month f/u Intake Note: Patient here for a 4 month follow up Transportation Supervisor Required: Yes Transportation Supervisor Language: Wolof Accompanied by: Self / Same As Patient Allergies No Known Allergies Allergy (Verified 04/24/25 17:41) Medication List - Last Reconciled 04/25/25 by Al Alvarez MD acetaminophen (Tylenol Extra Strength) 500 mg PO Q6H PRN albuterol sulfate 90 mcg/actuation 2 puffs inhalation Q6H PRN 30 days [Bedside Commode As directed] buspirone 5 mg PO TID 30 days [Cane As directed] cholecalciferol (vitamin D3) 50 mcg PO DAILY 90 days clonazepam 1 mg PO BID PRN 15 days clonidine HCl 0.1 mg PO .Q HS cyclobenzaprine 5 mg PO Q8H PRN 10 days [Handheld Shower As directed] ibuprofen 600 mg PO Q6H PRN incontinence pad, liner, disp (Bladder Control Pad) As directed 2 to 3 times a day (MEDIUM SIZE) miscellaneous medical supply Shower Chair miscellaneous medical supply Hand Held Shower Head [PANTILINERS As directed] propranolol ER 160 mg PO DAILY 90 days quetiapine 50 mg PO BEDTIME 30 days sertraline 100 mg PO DAILY sertraline 50 mg PO BEDTIME [Shower Chair As directed] tramadol 50 mg PO Q6H PRN trazodone 50 mg PO BEDTIME 30 days ziprasidone HCl 40 mg PO BID 30 days Tobacco use date assessed: 12/20/24 Dental Screening Dental Screen Date: 12/20/24 Did you have a dental visit in the last 12 months?: Yes Did you have a dental problem in the last 6 months where you did not have access to dental care?: No Was dental information given to patient?: No HPI 4 month f/u HPI Details Patient comes in today for her follow-up visit States that she feels okay She denies any headaches or dizziness Denies any chest pains, no increased shortness of breath No nausea/vomiting, no abdominal pain No change in bowel habits noted - still has frequent constipation and would like to have her Rx for this refilled She had her follow-up labs done earlier this morning- to discuss her results [facility] Medical History (Updated 04/25/25 @ 01:42 by Al Alvarez MD) Insomnia Pure hypercholesterolemia Smoker History of pneumothorax Lumbar degenerative disc disease Fibroid uterus Overweight (BMI 25.0-29.9) Spontaneous pneumothorax Vitamin D deficiency Current smoker Bipolar depression Primary insomnia Anxiety Asthma Persistent headaches Surgical History History of tubal ligation Family History Father No problems noted. Mother No problems noted. Maternal Grandmother Breast cancer Paternal Aunt Breast cancer Family/Other FH: mental illness Other Mental health problem Social History Household Members: Children Housing: Apartment Do you presently have visiting nurse or other home services: Yes Alcohol intake: never Patient Tobacco Use Status: Current everyday Tobacco user Tobacco use type: Cigarette Cigarette Packs Per Day: 0.25 e-Cigarette/Vaping Use: Never Used Second Hand Smoke Exposure: Yes Substance Use Type: Crack/Cocaine and Marijuana service: No Current occupational status: disabled Cognitive needs: No Hearing needs: No Vision needs: No Female Reproductive History Menstrual Age of Menarche: 14 Questionnaire PHQ-9 Over the last 2 weeks, how often have you been bothered by any of the following problems? 1. Little interest or pleasure in doing things: nearly every day 2. Feeling down, depressed, or hopeless: nearly every day 3. Trouble falling or staying asleep, or sleeping too much: several days 4. Feeling tired or having little energy: nearly every day 5. Poor appetite or overeating: more than half the days 6. Feeling bad about yourself - or that you are a failure or have let yourself or your family down: nearly every day 7. Trouble concentrating on things, such as reading the newspaper or watching television: nearly every day 8. Moving or speaking so slowly that other people could have noticed. Or the opposite - being so fidgety or restless that you have been moving around a lot more than usual: not at all 9. Thoughts that you would be better off or of hurting yourself in some way: not at all Total score: 18 Depression Screening Interpretation: Positive Depression Screening Follow-up: Existing condition and In treatment Depression Screening Done: Yes 84621 - PHQ-9 Billing: Yes Source: Developed by Drs. Micha Hernández, Anna Newman, Oumar Mcmahon and colleagues, with an educational laura from [employer]. Thrive Questionnaire Date Thrive assessed: 12/20/24 I am a: Patient What is your living situation today?: I choose not to answer this question Within the past 12 months, did the food you bought not last and you didn't have the money to get more?: Never true Within the past 12 months, did you worry whether your food would run out before you got money to buy more?: I choose not to answer this question Do you have trouble paying for medicines?: No Do you have trouble getting transportation to medical appointments?: No Do you have trouble paying your heating and electricity bill?: No Do you have trouble taking care of your child, family member or friend?: No Do you have trouble with day-to-day activities such as bathing, preparing meals, shopping, managing finances, etc.?: Yes Are you currently unemployed and looking for a job?: No Are you interested in more education?: I choose not to answer this question Please select the resources that you would like help with: None Currently or been in a relationship where the following occur: No concerns reported THRIVE Score: 0 AUDIT C Alcohol Use Questionnaire (AUDIT-C) 1. How often do you have a drink containing alcohol?: Never Total Score: 0 Score Reviewed/Action Taken: Yes BETZAIDA-7 AMB Questionnaire BETZAIDA-7 Date BETZAIDA - 7 assessed: 12/20/24 Feeling nervous, anxious, or on edge: 3 = Nearly every day Not being able to stop or control worryin = Several days Worrying too much about different things: 2 = More than half the days Trouble relaxin = Several days Being so restless that it is hard to sit still: 3 = Nearly every day Becoming easily annoyed or irritable: 2 = More than half the days Feeling afraid as if something awful might happen: 1 = Several days Total BETZAIDA-7 score (0-4 normal; 5-9 mild; 10-14 moderate; 15-21 severe): 13 Source: Developed by Drs. Micha Hernández, Anna Newman, Oumar Mcmahon and colleagues, with an educational laura from [employer]. Review of Systems Const Denies chills, Reports difficulty sleeping, Denies fatigue, Denies fever(s) and Denies headache(s) ENT Denies dysphagia, Denies dizziness, Denies otalgia, Denies headache(s), Denies neck pain, Denies odynophagia and Denies sore throat Card Denies chest pain, Denies irregular heart rhythm, Denies palpitations and Denies dyspnea Resp Denies chest congestion, Denies cough and Denies dyspnea GI Denies abdominal pain, Reports constipation, Denies dysphagia, Denies heartburn, Denies diarrhea, Denies nausea, Denies odynophagia and Denies vomiting Denies difficulty voiding, Denies nocturia, Denies dysuria, Reports urinary incontinence (on and off) and Denies urinary urgency Musc Reports back pain (on and off over the lower back) and Denies neck pain Skin/Breast Denies rash Neuro Denies dizziness, Denies headache(s) and Denies paresthesias Psych Denies anxiety and Reports depression (increased lately) Endo Denies fatigue and Denies palpitations Salazar/Lymph Denies easy bruising Physical exam (Primary Care) Vital Signs: Last Vital Signs Temp 97.5 F 04/24/25 17:11 Pulse 78 04/24/25 17:11 BP 104/78 04/24/25 17:11 Pulse Ox 98 04/24/25 17:11 Oxygen Delivery Method Room Air 04/24/25 17:11 BMI result Body Mass Index 31.2 Tobacco/Smoking Status: Tobacco use Status Tobacco use date assessed 12/20/24 04/24/25 17:12 Patient Tobacco Use Status Current everyday Tobacco 04/24/25 17:12 Tobacco use type Cigarette 04/24/25 17:12 e-Cigarette/Vaping Use Never Used 04/24/25 17:12 PHQ-9: PHQ-9 Score PHQ-9: Total score 18 04/24/25 17:42 Depression Screening Interpretation: Positive Depression Screening Follow-up: Existing condition and In treatment Thrive Assessment: Date of Thrive Assessment Date Thrive assessed 12/20/24 04/24/25 17:12 Currently or been in a relationship where the following occur: No concerns reported Const General: no acute distress and alert HENMT Ears: TM's normal bilaterally and EAC's normal Throat: Yes posterior oropharynx normal and Yes tonsils normal (no TP congestion) Neck Neck: Yes supple and No lymphadenopathy Thyroid: Thyroid normal Resp Auscultation: clear to auscultation bilaterally, no rales and no wheezes Cardio Rate: regular rate Rhythm: regular rhythm Heart sounds: no murmurs GI Palpation (GI): Soft to palpation and nontender Auscultation: normal bowel sounds General: Yes no CVA tenderness Back/Spine/Pelvis Back: no CVA tenderness Thoracic/Lumbar Spine: lumbar spinal tenderness (mild) Skin Rashes: no rashes Extrem General: Yes no clubbing, cyanosis or edema Results Reviewed Results Reviewed: Laboratory Tests 04/24/25 04/24/25 15:58 16:01 WBC 5.8 Hgb 11.9 L Hct 37.4 Plt Count 275 Sodium 141 Potassium 4.5 Creatinine 0.67 Estimated GFR > 60 Fasting Glucose 93 Calcium 8.8 D AST 19 ALT 21 Triglycerides 125 Cholesterol 202 H LDL Cholesterol, Calc 125 H HDL Cholesterol 52 25-OH Vitamin D Total 33.3 TSH 0.88 Ur Specific [place] 1.020 Urine Protein Negative Urine Glucose (UA) Negative Urine Blood Negative Urine Nitrite Negative Ur Leukocyte Esterase Negative Coding Level of Care Code Est Pt Level 4 (40847) Diagnoses Pure hypercholesterolemia E78.00 Mild intermittent asthma without complication J45.20 Asthma complication type: uncomplicated Asthma persistence: intermittent Asthma severity: mild History of pneumothorax Z87.09 Nonintractable episodic headache, unspecified headache type R51.9 Headache chronicity pattern: episodic headache Headache type: unspecified Intractability: not intractable Vitamin D deficiency E55.9 Degeneration of intervertebral disc of lumbar region with discogenic back pain M51.360 Disc-related pain type: discogenic back pain only Constipation, unspecified constipation type K59.00 Constipation type: unspecified constipation type Urinary incontinence, unspecified type R32 Urinary Incontinence type: unspecified incontinence Primary insomnia F51.01 Anxiety F41.9 Bipolar depression F31.9 Smoker F17.200 Obesity (BMI 30-39.9) E66.9 Additional Codes PHQ-9 - 70215 - PHQ-9 Billing: Yes ([id number]) Assessment & Plan Assessment & Plan (1) Pure hypercholesterolemia: Code(s): E78.00 - Pure hypercholesterolemia, unspecified Category: Medical Plan: Results of her labs done earlier today reviewed and discussed with patient - she is advised that her cholesterol levels have improved slightly from previous, with her LDL cholesterol now at 125 mg/dl (from previous high of 149 mg/dl) Reinforced low cholesterol diet Will have patient recheck her labs and fasting lipids in 4 months for follow up (2) Asthma: Code(s): J45.909 - Unspecified asthma, uncomplicated Category: Medical Qualifiers: Asthma complication type: uncomplicated Asthma persistence: intermittent Asthma severity: mild Qualified Code(s): J45.20 - Mild intermittent asthma, uncomplicated Plan: Controlled Continue Albuterol inhaler 1 to 2 puffs Q 6 hours PRN (3) History of pneumothorax: Comment: spontaneous pneumothorax in December 2021, requiring chest tube insertion Code(s): Z87.09 - Personal history of other diseases of the respiratory system Category: Medical Plan: S/P chest tube insertion in December 2021, with no recurrence since Patient is again advised to refrain from using drugs and to work on quitting smoking to minimize the risks of recurrence of her pneumothorax (4) Headache: Code(s): R51.9 - Headache, unspecified Category: Medical Qualifiers: Headache chronicity pattern: episodic headache Headache type: unspecified Intractability: not intractable Qualified Code(s): R51.9 - Headache, unspecified Plan: MRI of the brain done back in August 2019 came out normal/negative She has been advised that her headaches are likely migraine headaches Continue Propranolol ER 160 mg QD for DAY prophylaxis Continue Tramadol 50 mg TID PRN and Fioricet PRN for symptomatic relief Follow up with neurology as scheduled (5) Vitamin D deficiency: Code(s): E55.9 - Vitamin D deficiency, unspecified Category: Medical Plan: Continue Vitamin D3 2000 units QD (6) Lumbar degenerative disc disease: Code(s): M51.36 - Other intervertebral disc degeneration, lumbar region Category: Medical Qualifiers: Disc-related pain type: discogenic back pain only Qualified Code(s): M51.360 - Other intervertebral disc degeneration, lumbar region with discogenic back pain only Plan: Reinforced activity and weight-lifting restrictions Lumbar spine x-rays done in December 2022 revealed (+) chronic L5 spondylolysis with grade 1 anterolisthesis of L5 on S1 and [id number] disc degenerative change at L5-S1 Continue Cyclobenzaprine 5 mg TID PRN, Ibuprofen 600 mg Q 6 hours PRN with food and Tramadol 50 mg TID PRN for pain (7) Constipation: Code(s): K59.00 - Constipation, unspecified Category: Medical Qualifiers: Constipation type: unspecified constipation type Qualified Code(s): K59.00 - Constipation, unspecified Plan: Reinforced increased oral fluids and dietary fiber Will start her on Senna 8.6 mg Q HS PRN (8) Urinary incontinence: Code(s): R32 - Unspecified urinary incontinence Category: Medical Qualifiers: Urinary Incontinence type: unspecified incontinence Qualified Code(s): R32 - Unspecified urinary incontinence Plan: Patient uses bladder / incontinence pads as needed Have advised her to consider referral to urology for further evaluation and management of her urinary symptoms (9) Primary insomnia: Code(s): F51.01 - Primary insomnia Category: Medical Plan: Sleep hygiene reinforced Continue Trazodone 50 mg Q HS and Clonidine 0.2 mg Q HS States that her bedtime dose of Seroquel also helps her sleep better at night (10) Anxiety: Code(s): F41.9 - Anxiety disorder, unspecified Category: Medical Plan: Continue Clonazepam 1 mg BID PRN and Buspirone 5 mg TID (11) Bipolar depression: Code(s): F31.9 - Bipolar disorder, unspecified Category: Medical Plan: Patient was experiencing increased depression since her 26 y/o son suddenly a few months ago and her current medications are reportedly at least helping her cope with her loss Continue Quetiapine 50 mg Q HS, Sertraline 150 mg QD and Ziprasidone 40 mg BID Follow up with psychiatry as scheduled (12) Smoker: Code(s): F17.200 - Nicotine dependence, unspecified, uncomplicated Category: Social Hx Plan: Patient is counseled again on complete smoking cessation (13) Obesity (BMI 30-39.9): Code(s): E66.9 - Obesity, unspecified Category: Medical Plan: Reinforced diet/exercise as tolerated/lose weight Plan Follow up in 4 months Orders: Orders Comprehensive [place]. Panel Fast 4 Months E78.00 - Pure hypercholesterolemia, unspecified Complete Blood Count Auto Diff 4 Months D64.9 - Anemia, unspecified Lipid Panel 4 Months E78.00 - Pure hypercholesterolemia, unspecified Medications: New sennosides (senna) 8.6 mg PO BEDTIME PRN 30 tabs 5RF constipation 30 days
[2025-04-24 17:11] VITALS: BP 104/78; PULSE 78; TEMP 36.4; O2SAT 98; BMI 31.2
== END 2025-04-24 17:44 | disposition home or self-care (01) ==
LOC: HO.HMCH 17:06
PROVIDERS: PCP Internal Medicine; Visit Provider Internal Medicine
DX: E78.00 Pure hypercholesterolemia, unspecified (principal); J45.20 Mild intermittent asthma, uncomplicated; F31.9 Bipolar disorder, unspecified; Z87.09 Personal history of other diseases of the respiratory system; R51.9 Headache, unspecified; E55.9 Vitamin D deficiency, unspecified; M51.360 Other intervertebral disc degeneration, lumbar region with discogenic back pain only; K59.00 Constipation, unspecified; R32 Unspecified urinary incontinence; F51.01 Primary insomnia; F41.9 Anxiety disorder, unspecified; F17.200 Nicotine dependence, unspecified, uncomplicated

== ENCOUNTER 2025-08-16 16:44 | Outpatient (AMB) | payer OTHER, SELFPAY ==
[2025-08-16 16:46] VITALS: BP 110/80; PULSE 69; O2SAT 97; BMI 32.3
--- NOTE | 2025-08-16 16:46 | MHC.PC.OV ---
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 Accompanied by: Self / Same As Patient Allergies No Known Allergies Allergy (Verified 08/16/25 17:11) Medication List - Last Reconciled 08/16/25 by Al Alvarez MD acetaminophen (Tylenol Extra Strength) 500 mg PO Q6H PRN albuterol sulfate 90 mcg/actuation 2 puffs inhalation Q6H PRN 30 days [Bedside Commode As directed] buspirone 5 mg PO TID 30 days [Cane As directed] cholecalciferol (vitamin D3) 50 mcg PO DAILY 90 days clonazepam 1 mg PO BID PRN 15 days clonidine HCl 0.1 mg PO .Q HS cyclobenzaprine 5 mg PO Q8H PRN 10 days [Handheld Shower As directed] ibuprofen 600 mg PO Q6H PRN incontinence pad, liner, disp (Bladder Control Pad) As directed 2 to 3 times a day (MEDIUM SIZE) miscellaneous medical supply Shower Chair miscellaneous medical supply Hand Held Shower Head [PANTILINERS As directed] propranolol ER 160 mg PO DAILY 90 days quetiapine 50 mg PO BEDTIME 30 days sennosides (senna) 8.6 mg PO BEDTIME PRN 30 days sertraline 100 mg PO DAILY sertraline 50 mg PO BEDTIME [Shower Chair As directed] tramadol 50 mg PO Q6H PRN trazodone 50 mg PO BEDTIME 30 days ziprasidone HCl 40 mg PO BID 30 days Tobacco use date assessed: 08/16/25 Dental Screening Dental Screen Date: 08/16/25 Did you have a dental visit in the last 12 months?: No Did you have a dental problem in the last 6 months where you did not have access to dental care?: No Was dental information given to patient?: No HPI 4 month f/u HPI Details Patient comes in today for her follow-up visit States that she feels okay She denies any headaches or dizziness Denies any chest pains, no increased shortness of breath No nausea/vomiting, no abdominal pain No change in bowel habits noted Needs several of her Rx refilled She was not able to get her follow-up labs done prior to her appointment today [facility] Medical History Insomnia Pure hypercholesterolemia Smoker History of pneumothorax Lumbar degenerative disc disease Fibroid uterus Overweight (BMI 25.0-29.9) Spontaneous pneumothorax Vitamin D deficiency Current smoker Bipolar depression Primary insomnia Anxiety Asthma Persistent headaches Surgical History History of tubal ligation Family History Father No problems noted. Mother No problems noted. Maternal Grandmother Breast cancer Paternal Aunt Breast cancer Family/Other FH: mental illness Other Mental health problem Social History Household Members: Children Housing: Apartment Do you presently have visiting nurse or other home services: Yes Alcohol intake: never Patient Tobacco Use Status: Current everyday Tobacco user Tobacco use type: Cigarette Cigarette Packs Per Day: 0.25 e-Cigarette/Vaping Use: Never Used Second Hand Smoke Exposure: Yes Substance Use Type: Crack/Cocaine and Marijuana service: No Current occupational status: disabled Cognitive needs: No Hearing needs: No Vision needs: No Female Reproductive History Menstrual Age of Menarche: 14 Questionnaire PHQ-9 Over the last 2 weeks, how often have you been bothered by any of the following problems? 1. Little interest or pleasure in doing things: nearly every day 2. Feeling down, depressed, or hopeless: nearly every day 3. Trouble falling or staying asleep, or sleeping too much: several days 4. Feeling tired or having little energy: nearly every day 5. Poor appetite or overeating: more than half the days 6. Feeling bad about yourself - or that you are a failure or have let yourself or your family down: nearly every day 7. Trouble concentrating on things, such as reading the newspaper or watching television: nearly every day 8. Moving or speaking so slowly that other people could have noticed. Or the opposite - being so fidgety or restless that you have been moving around a lot more than usual: not at all 9. Thoughts that you would be better off or of hurting yourself in some way: not at all Total score: 18 Depression Screening Interpretation: Positive Depression Screening Follow-up: Existing condition and In treatment Depression Screening Done: Yes 45137 - PHQ-9 Billing: Yes Source: Developed by Drs. Micha Hernández, Anna Newman, Oumar Mcmahon and colleagues, with an educational laura from [employer]. Thrive Questionnaire Date Thrive assessed: 08/16/25 I am a: Patient What is your living situation today?: I choose not to answer this question Within the past 12 months, did the food you bought not last and you didn't have the money to get more?: Never true Within the past 12 months, did you worry whether your food would run out before you got money to buy more?: I choose not to answer this question Do you have trouble paying for medicines?: No Do you have trouble getting transportation to medical appointments?: No Do you have trouble paying your heating and electricity bill?: No Do you have trouble taking care of your child, family member or friend?: No Do you have trouble with day-to-day activities such as bathing, preparing meals, shopping, managing finances, etc.?: Yes Are you currently unemployed and looking for a job?: No Are you interested in more education?: I choose not to answer this question Please select the resources that you would like help with: None Currently or been in a relationship where the following occur: No concerns reported THRIVE Score: 0 AUDIT C Alcohol Use Questionnaire (AUDIT-C) 1. How often do you have a drink containing alcohol?: Never 3. How often do you have six or more drinks on one occasion?: Never Total Score: 0 Score Reviewed/Action Taken: Yes BETZAIDA-7 AMB Questionnaire BETZAIDA-7 Date BETZAIDA - 7 assessed: 08/16/25 Feeling nervous, anxious, or on edge: 3 = Nearly every day Not being able to stop or control worryin = Several days Worrying too much about different things: 2 = More than half the days Trouble relaxin = Several days Being so restless that it is hard to sit still: 3 = Nearly every day Becoming easily annoyed or irritable: 2 = More than half the days Feeling afraid as if something awful might happen: 1 = Several days Total BETZAIDA-7 score (0-4 normal; 5-9 mild; 10-14 moderate; 15-21 severe): 13 Source: Developed by Drs. Micha Hernández, Anna Newman, Oumar Mcmahon and colleagues, with an educational larua from [employer]. Review of Systems Const Denies chills, Reports difficulty sleeping, Denies fatigue, Denies fever(s) and Denies headache(s) ENT Denies dysphagia, Denies dizziness, Denies otalgia, Denies headache(s), Denies neck pain, Denies odynophagia and Denies sore throat Card Denies chest pain, Denies irregular heart rhythm, Denies palpitations and Denies dyspnea Resp Denies chest congestion, Denies cough and Denies dyspnea GI Denies abdominal pain, Reports constipation, Denies dysphagia, Denies heartburn, Denies diarrhea, Denies nausea, Denies odynophagia and Denies vomiting Denies nocturia, Denies dysuria, Reports urinary incontinence (on and off) and Denies urinary urgency Musc Reports back pain (on and off over the lower back) and Denies neck pain Skin/Breast Denies rash Neuro Denies dizziness, Denies headache(s) and Denies paresthesias Psych Reports anxiety and Reports depression Endo Denies fatigue and Denies palpitations Salazar/Lymph Denies easy bruising Physical exam (Primary Care) Vital Signs: Last Vital Signs Pulse 69 08/16/25 16:46 BP 110/80 08/16/25 16:46 Pulse Ox 97 08/16/25 16:46 Oxygen Delivery Method Room Air 08/16/25 16:46 BMI result Body Mass Index 32.3 Tobacco/Smoking Status: Tobacco use Status Tobacco use date assessed 08/16/25 08/16/25 16:51 Patient Tobacco Use Status Current everyday Tobacco 08/16/25 16:51 Tobacco use type Cigarette 08/16/25 16:51 e-Cigarette/Vaping Use Never Used 08/16/25 16:51 PHQ-9: PHQ-9 Score PHQ-9: Total score 18 08/16/25 17:23 Depression Screening Interpretation: Positive Depression Screening Follow-up: Existing condition and In treatment Thrive Assessment: Date of Thrive Assessment Date Thrive assessed 08/16/25 08/16/25 16:51 Currently or been in a relationship where the following occur: No concerns reported Const General: no acute distress and alert HENMT Throat: Yes posterior oropharynx normal and Yes tonsils normal (no TP congestion) Neck Neck: Yes supple and No lymphadenopathy Thyroid: Thyroid normal Resp Auscultation: clear to auscultation bilaterally, no rales and no wheezes Cardio Rate: regular rate Rhythm: regular rhythm Heart sounds: no murmurs GI Palpation (GI): Soft to palpation and nontender Auscultation: normal bowel sounds General: Yes no CVA tenderness Back/Spine/Pelvis Back: no CVA tenderness Thoracic/Lumbar Spine: lumbar spinal tenderness (mild) Skin Rashes: no rashes Extrem General: Yes no clubbing, cyanosis or edema Coding Level of Care Code Est Pt Level 4 (57018) Diagnoses Pure hypercholesterolemia E78.00 Mild intermittent asthma without complication J45.20 Asthma severity: mild Asthma persistence: intermittent Asthma complication type: uncomplicated History of pneumothorax Z87.09 Nonintractable episodic headache, unspecified headache type R51.9 Headache type: unspecified Headache chronicity pattern: episodic headache Intractability: not intractable Vitamin D deficiency E55.9 Degeneration of intervertebral disc of lumbar region with discogenic back pain M51.360 Disc-related pain type: discogenic back pain only Constipation, unspecified constipation type K59.00 Constipation type: unspecified constipation type Urinary incontinence, unspecified type R32 Urinary Incontinence type: unspecified incontinence Primary insomnia F51.01 Anxiety F41.9 Bipolar depression F31.9 Smoker F17.200 Obesity (BMI 30-39.9) E66.9 Additional Codes PHQ-9 - 31516 - PHQ-9 Billing: Yes ([id number]) Assessment & Plan Assessment & Plan (1) Pure hypercholesterolemia: Code(s): E78.00 - Pure hypercholesterolemia, unspecified Category: Medical Plan: Patient did not get her follow up labs done prior to her appointment today Her cholesterol levels improved slightly from previous when last checked a few months ago, with her LDL cholesterol at 125 mg/dl (from previous high of 149 mg/dl) Reinforced low cholesterol diet Will have patient recheck her labs and fasting lipids in 3 months for follow up (2) Asthma: Code(s): J45.909 - Unspecified asthma, uncomplicated Category: Medical Qualifiers: Asthma severity: mild Asthma persistence: intermittent Asthma complication type: uncomplicated Qualified Code(s): J45.20 - Mild intermittent asthma, uncomplicated Plan: Controlled Continue Albuterol inhaler 1 to 2 puffs Q 6 hours PRN (3) History of pneumothorax: Comment: spontaneous pneumothorax in December 2021, requiring chest tube insertion Code(s): Z87.09 - Personal history of other diseases of the respiratory system Category: Medical Plan: S/P chest tube insertion in December 2021, with no recurrence since Patient is again advised to refrain from using drugs and to work on quitting smoking to minimize the risks of recurrence of her pneumothorax (4) Headache: Code(s): R51.9 - Headache, unspecified Category: Medical Qualifiers: Headache type: unspecified Headache chronicity pattern: episodic headache Intractability: not intractable Qualified Code(s): R51.9 - Headache, unspecified Plan: MRI of the brain done back in August 2019 came out normal/negative She has been advised that her headaches are likely migraine headaches Continue Propranolol ER 160 mg QD for DAY prophylaxis Continue Tramadol 50 mg TID PRN and Fioricet PRN for symptomatic relief Follow up with neurology as scheduled (5) Vitamin D deficiency: Code(s): E55.9 - Vitamin D deficiency, unspecified Category: Medical Plan: Continue Vitamin D3 2000 units QD (6) Lumbar degenerative disc disease: Code(s): M51.36 - Other intervertebral disc degeneration, lumbar region Category: Medical Qualifiers: Disc-related pain type: discogenic back pain only Qualified Code(s): M51.360 - Other intervertebral disc degeneration, lumbar region with discogenic back pain only Plan: Reinforced activity and weight-lifting restrictions Lumbar spine x-rays done in December 2022 revealed (+) chronic L5 spondylolysis with grade 1 anterolisthesis of L5 on S1 and [id number] disc degenerative change at L5-S1 Continue Cyclobenzaprine 5 mg TID PRN, Ibuprofen 600 mg Q 6 hours PRN with food and Tramadol 50 mg TID PRN for pain (7) Constipation: Code(s): K59.00 - Constipation, unspecified Category: Medical Qualifiers: Constipation type: unspecified constipation type Qualified Code(s): K59.00 - Constipation, unspecified Plan: Reinforced increased oral fluids and dietary fiber intake Continue Senna 8.6 mg Q HS PRN (8) Urinary incontinence: Code(s): R32 - Unspecified urinary incontinence Category: Medical Qualifiers: Urinary Incontinence type: unspecified incontinence Qualified Code(s): R32 - Unspecified urinary incontinence Plan: Patient uses bladder / incontinence pads as needed Have advised her to consider referral to urology for further evaluation and management of her urinary symptoms (9) Primary insomnia: Code(s): F51.01 - Primary insomnia Category: Medical Plan: Sleep hygiene reinforced Continue Trazodone 50 mg Q HS and Clonidine 0.2 mg Q HS States that her bedtime dose of Seroquel also helps her sleep better at night (10) Anxiety: Code(s): F41.9 - Anxiety disorder, unspecified Category: Medical Plan: Continue Clonazepam 1 mg BID PRN and Buspirone 5 mg TID (11) Bipolar depression: Code(s): F31.9 - Bipolar disorder, unspecified Category: Medical Plan: Patient was experiencing increased depression since her 26 y/o son suddenly a few months ago and her current medications are reportedly at least helping her cope with her loss Continue Quetiapine 50 mg Q HS, Sertraline 150 mg QD and Ziprasidone 40 mg BID Follow up with psychiatry as scheduled (12) Smoker: Code(s): F17.200 - Nicotine dependence, unspecified, uncomplicated Category: Social Hx Plan: Patient is counseled again on complete smoking cessation (13) Obesity (BMI 30-39.9): Code(s): E66.9 - Obesity, unspecified Category: Medical Plan: Reinforced diet/exercise as tolerated/lose weight Plan Follow up in 3 months Orders: Orders Comprehensive [place]. Panel Fast 3 Months E78.00 - Pure hypercholesterolemia, unspecified Lipid Panel 3 Months E78.00 - Pure hypercholesterolemia, unspecified Vitamin D 25-OH Total 3 Months E55.9 - Vitamin D deficiency, unspecified Complete Blood Count Auto Diff 3 Months D64.9 - Anemia, unspecified Medications: Refilled clonazepam 1 mg PO BID PRN 30 tabs 0RF Anxiety 15 days tramadol 50 mg PO Q6H PRN 20 tabs 0RF pain ziprasidone HCl 40 mg PO BID 60 caps 0RF 30 days buspirone 5 mg PO TID 90 tabs 0RF 30 days quetiapine Coverage for Dr. Alvarez 50 mg PO BEDTIME 30 tabs 1RF 30 days F31.9 - Bipolar disorder, unspecified sertraline 100 mg PO DAILY 30 tabs 3RF sertraline Coverage for Dr. Alvarez 50 mg PO BEDTIME 30 tabs 3RF F31.9 - Bipolar disorder, unspecified trazodone 50 mg PO BEDTIME 30 tabs 0RF 30 days
--- OUTSIDE RECORDS SUMMARY | 2025-08-17 04:54 | XMS_ITS | Clinical Summary ---
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
== END 2025-08-16 17:25 | disposition home or self-care (01) ==
LOC: HO.HMCH 16:45
PROVIDERS: PCP Internal Medicine; Visit Provider Internal Medicine
DX: E78.00 Pure hypercholesterolemia, unspecified (principal); J45.20 Mild intermittent asthma, uncomplicated; Z87.09 Personal history of other diseases of the respiratory system; R51.9 Headache, unspecified; E55.9 Vitamin D deficiency, unspecified; M51.360 Other intervertebral disc degeneration, lumbar region with discogenic back pain only; K59.00 Constipation, unspecified; R32 Unspecified urinary incontinence; F51.01 Primary insomnia; F41.9 Anxiety disorder, unspecified; F31.9 Bipolar disorder, unspecified; F17.200 Nicotine dependence, unspecified, uncomplicated; E66.9 Obesity, unspecified; Z68.32 Body mass index [BMI] 32.0-32.9, adult

== ENCOUNTER → 2025-08-16 16:44 | Outpatient (BNVA) | payer OTHER, SELFPAY | PROVIDERS: PCP Internal Medicine; Visit Provider Internal Medicine | DX: J45.20 Mild intermittent asthma, uncomplicated (principal); E78.00 Pure hypercholesterolemia, unspecified; Z87.09 Personal history of other diseases of the respiratory system; R51.9 Headache, unspecified; E55.9 Vitamin D deficiency, unspecified; M51.360 Other intervertebral disc degeneration, lumbar region with discogenic back pain only; K59.00 Constipation, unspecified; R32 Unspecified urinary incontinence; F51.01 Primary insomnia; F41.9 Anxiety disorder, unspecified; F31.9 Bipolar disorder, unspecified; E66.9 Obesity, unspecified; F17.210 Nicotine dependence, cigarettes, uncomplicated; Z68.32 Body mass index [BMI] 32.0-32.9, adult | CPT/HCPCS: 96127; 99212 ==